=== PATIENT | female | born 1945 | race Caucasian/White ===

== ENCOUNTER 2021-04-02 09:30 | Outpatient (REF) | payer MEDICARE, SELFPAY ==
[2021-04-02 11:43] LABS: Hematocrit 47.9 % (37-47); Hemoglobin 15.3 g/dl (12.0-16.0); Mean Corpuscular HGB Conc 31.9 g/dl (31.0-35.0); Mean Corpuscular Volume 90.7 fL (80-98); Mean Platelet Volume 10.3 fL (9.4-12.3); Platelet Count 270 X10*3/uL (160-400); Red Blood Count 5.28 X10*6/uL (4.20-5.50); Red Cell Distribution Width 13.8 % (11.0-16.0); White Blood Count 8.9 X10*3/uL (4.8-10.8)
[2021-04-02 11:51] LABS: Alanine Aminotransferase 11 U/L (0-31); Albumin Level 4.1 g/dL (3.5-5.0); Alkaline Phosphatase 130 U/L (39-117); Anion Gap 16 (12-20); Aspartate Amino Transferase 16 U/L (5-31); Bilirubin Total 0.6 mg/dL (0.0-1.0); Blood Urea Nitrogen 20 mg/dL (9-16); Carbon Dioxide 22 mmol/L (22-29); Chloride 109 mmol/L (96-108); Cholesterol 190 mg/dL; Estimated Glomerular Filt Rate > 60; Glucose Fasting 77 mg/dL (60-99); HDL Cholesterol 57 mg/dL; LDL Cholesterol Calculated 113 mg/dl; Potassium 4.5 mmol/L (3.3-5.1); Sodium 142 mmol/L (135-145); Total Protein 6.9 g/dL (6.5-8.0); Triglycerides 102 mg/dL
[2021-04-02 12:15] LABS: TSH reflex Free T4 2.99 uIU/mL (0.32-4.0); Vitamin D 25-OH Total 37.5 ng/mL (>30)
== END 2021-04-02 09:31 | disposition home or self-care (01) ==
LOC: HO.HMGCLDS 09:30
PROVIDERS: PCP Internal Medicine; Visit Provider Internal Medicine
DX: E55.9 Vitamin D deficiency, unspecified (principal); F03.90 Unspecified dementia, unspecified severity, without behavioral disturbance, psychotic disturbance, mood disturbance, and anxiety; E03.9 Hypothyroidism, unspecified; R35.0 Frequency of micturition
CPT/HCPCS: 36415; 80053; 80061; 82306; 84443; 85027

== ENCOUNTER 2022-11-14 08:38 | Outpatient (REF) | payer MEDICARE, SELFPAY ==
[2022-11-14 11:36] LABS: MANUAL DIFF FLAG NO
[2022-11-14 11:44] LABS: Basophils Percent Auto 0.4 % (0-2); Eosinophils Absolute Auto 0.1 X10*3/uL (0.0-0.4); Hematocrit 47.6 % (37.0-47.0); Hemoglobin 15.4 g/dl (12.0-16.0); Imm Gran Abs Auto 0.03 X10*3/uL (0.00-0.03); Imm Gran Pct Auto 0.4 % (0.0-0.4); Lymphocytes Percent Auto 12.3 % (20-40); Mean Corpuscular HGB Conc 32.4 g/dl (31.0-35.0); Mean Corpuscular Hemoglobin 29.7 pg (27.0-33.0); Mean Corpuscular Volume 91.9 fL (80.0-98.0); Mean Platelet Volume 10.5 fL (9.4-12.3); Monocytes Absolute Auto 0.5 X10*3/uL (0.1-1.2); Monocytes Percent Auto 5.7 % (2-11); Neutrophils Absolute Auto 6.7 x10*3/uL (2.0-8.3); Neutrophils Percent Auto 80.2 % (45-73); Platelet Count 239 X10*3/uL (160-400); Red Blood Count 5.18 X10*6/uL (4.20-5.50); Red Cell Distribution Width 13.3 % (11.0-16.0); White Blood Count 8.4 X10*3/uL (4.8-10.8)
[2022-11-14 12:27] LABS: Alanine Aminotransferase 13 U/L (0-31); Albumin Level 3.8 g/dL (3.5-5.0); Alkaline Phosphatase 136 U/L (39-117); Anion Gap 14 (12-20); Aspartate Amino Transferase 18 U/L (5-31); Bilirubin Total 0.6 mg/dL (0.0-1.0); Blood Urea Nitrogen 16 mg/dL (9-16); Calcium 9.1 mg/dL (8.4-10.2); Carbon Dioxide 25 mmol/L (22-29); Chloride 108 mmol/L (96-108); Cholesterol 194 mg/dL; Estimated Glomerular Filt Rate > 60; Glucose Fasting 81 mg/dL (60-99); HDL Cholesterol 46 mg/dL; LDL Cholesterol Calculated 111 mg/dl; Potassium 4.2 mmol/L (3.3-5.1); Sodium 143 mmol/L (135-145); TSH reflex Free T4 5.38 uIU/mL (0.32-4.0); Total Protein 6.5 g/dL (6.5-8.0); Triglycerides 188 mg/dL; Vitamin D 25-OH Total 37.2 ng/mL (>30)
[2022-11-14 12:57] LABS: Free T4 (Free Thyroxine) 1.07 ng/dL (0.71-1.85)
== END 2022-11-14 08:39 | disposition home or self-care (01) ==
LOC: HO.HMGCLDS 08:38
PROVIDERS: PCP Internal Medicine; Visit Provider Internal Medicine
DX: Z00.00 Encounter for general adult medical examination without abnormal findings (principal); E03.9 Hypothyroidism, unspecified; F03.90 Unspecified dementia, unspecified severity, without behavioral disturbance, psychotic disturbance, mood disturbance, and anxiety; E55.9 Vitamin D deficiency, unspecified
CPT/HCPCS: 36415; 80053; 80061; 82306; 84439; 84443; 85025

== ENCOUNTER 2023-11-15 10:12 | Outpatient (AMB) | payer MEDICARE, SELFPAY ==
--- NOTE | 2023-11-15 10:25 | A.OFFPC_ITS ---
Vital Signs 11/15/23 10:26 Height 5 ft 2 in Weight 146 lb BMI 26.7 BP 118/74 Blood Pressure Location Lt brachial Position Sitting Pulse 88 Pulse Source Pulse Oximeter Pulse Oximetry (%) 96 Oxygen Delivery Method Room Air Intake Visit Reasons: Annual PE Intake Note: Pt is ere today for PE. Allergies No Known Allergies Allergy (Verified 11/15/23 10:51) Medication List - Last Reconciled 11/15/23 by Mitali Blanton MD cholecalciferol (vitamin D3) 25 mcg PO DAILY diaper,brief,adult,disposable (Briefs Medium) As directed disposable gloves (Biobrane Gloves Large) As directed [disposable wipes As directed] donepezil 5 mg PO BEDTIME gabapentin 400 mg PO DAILY levothyroxine 25 mcg PO DAILY paroxetine HCl 30 mg PO DAILY pravastatin 20 mg PO DAILY Tobacco use date assessed: 11/15/23 Fall risk assessment: 1 Fall in past year Last assessed Fall Risk: 11/15/23 Dental Screening Dental Screen Date: 11/15/23 Did you have a dental visit in the last 12 months?: No Did you have a dental problem in the last 6 months where you did not have access to dental care?: No Was dental information given to patient?: Patient declined HPI Annual PE HPI Details PATIENT PRESENTS FOR PE. [facility] Medical History (Updated 11/15/23 @ 11:22 by Mitali Blanton MD) Hyperlipidemia Anxiety and depression Annual physical exam Vitamin D deficiency Dementia Hypothyroid Surgical History No pertinent past surgical history Family History Father No problems noted. Mother Mental health disorder Social History Housing: Other Patient Tobacco Use Status: Never used Tobacco e-Cigarette/Vaping Use: Never Used Second Hand Smoke Exposure: No service: No Current occupational status: other Current occupational exposures/hazards: No Cognitive needs: No Hearing needs: No Vision needs: No Questionnaire PHQ-9 Over the last 2 weeks, how often have you been bothered by any of the following problems? 1. Little interest or pleasure in doing things: not at all 2. Feeling down, depressed, or hopeless: several days 3. Trouble falling or staying asleep, or sleeping too much: several days 4. Feeling tired or having little energy: not at all 5. Poor appetite or overeating: not at all 6. Feeling bad about yourself - or that you are a failure or have let yourself or your family down: not at all 7. Trouble concentrating on things, such as reading the newspaper or watching television: not at all 8. Moving or speaking so slowly that other people could have noticed. Or the opposite - being so fidgety or restless that you have been moving around a lot more than usual: not at all 9. Thoughts that you would be better off or of hurting yourself in some way: not at all Total score: 2 Depression Screening Interpretation: Negative Depression Screening Done: Yes Source: Developed by Drs. Reza Chin, Nabila Malin, Skinny Vásquez and colleagues, with an educational severiano from [employer]. Thrive Questionnaire Date Thrive assessed: 11/15/23 I am a: Patient What is your living situation today?: I have a steady place to live Within the past 12 months, did the food you bought not last and you didn't have the money to get more?: Never true Within the past 12 months, did you worry whether your food would run out before you got money to buy more?: Never true Do you have trouble paying for medicines?: No Do you have trouble getting transportation to medical appointments?: No Do you have trouble paying your heating and electricity bill?: No Do you have trouble taking care of your child, family member or friend?: Yes Do you have trouble with day-to-day activities such as bathing, preparing meals, shopping, managing finances, etc.?: Yes Are you currently unemployed and looking for a job?: No Are you interested in more education?: No Please select the resources that you would like help with: Childcare and Daily support Currently or been in a relationship where the following occur: no concerns reported THRIVE Score: 0 AUDIT C Alcohol Use Questionnaire (AUDIT-C) 1. How often do you have a drink containing alcohol?: Never 3. How often do you have six or more drinks on one occasion?: Never Total Score: 0 CINDY-7 AMB Questionnaire CINDY-7 Date CINDY - 7 assessed: 11/15/23 Feeling nervous, anxious, or on edge: 0 = Not at all Not being able to stop or control worryin = Not at all Worrying too much about different things: 0 = Not at all Trouble relaxin = Several days Being so restless that it is hard to sit still: 1 = Several days Becoming easily annoyed or irritable: 1 = Several days Feeling afraid as if something awful might happen: 0 = Not at all Total CINDY-7 score (0-4 normal; 5-9 mild; 10-14 moderate; 15-21 severe): 3 Source: Developed by Drs. Reza Chin, Nabila Malin, Skinny Vásquez and colleagues, with an educational severiano from [employer]. Review of Systems Const All systems reviewed & are unremarkable except as noted in HPI and below Reports no additional complaints Eyes Reports no additional complaints ENT Reports no additional complaints Card Reports no additional complaints Resp Reports no additional complaints GI Reports no additional complaints Reports no additional complaints Physical exam (Primary Care) Vital Signs: Last Vital Signs Pulse 88 11/15/23 10:26 BP 118/74 11/15/23 10:26 Pulse Ox 96 11/15/23 10:26 Oxygen Delivery Method Room Air 11/15/23 10:26 BMI result Body Mass Index 26.7 Tobacco/Smoking Status: Tobacco use Status Tobacco use date assessed 11/15/23 11/15/23 10:55 Patient Tobacco Use Status Never used Tobacco 11/15/23 10:55 e-Cigarette/Vaping Use Never Used 11/15/23 10:27 PHQ-9: PHQ-9 Score PHQ-9: Total score 2 11/15/23 10:57 Depression Screening Interpretation: Negative Thrive Assessment: Date of Thrive Assessment Date Thrive assessed 11/15/23 11/15/23 10:57 Currently or been in a relationship where the following occur: no concerns reported Const General: no acute distress HENMT Head: Yes normal to inspection General nose exam: Normal external nose present Face and sinus: Yes normal facial exam Mouth: Normal oral and palatal mucosa present Throat: Yes posterior oropharynx normal Eyes General: appearance normal, both eyes and all related structures Neck Neck: Yes no lymphadenopathy and Yes supple Resp Effort & Inspection: normal respiratory effort Auscultation: clear to auscultation bilaterally Cardio Rhythm: regular rhythm Heart sounds: S1 normal heart sound present and S2 normal heart sound present GI Inspection: Yes normal to inspection Palpation (GI): Soft to palpation Percussion: Yes normal to percussion Auscultation: normal bowel sounds Assessment and Plan Assessment & Plan (1) Hypothyroid: Code(s): E03.9 - Hypothyroidism, unspecified Plan: Continue levothyroxine, return for fasting blood work (2) Annual physical exam: Code(s): Z00.00 - Encounter for general adult medical examination without abnormal findings Plan: Well-balanced diet regular physical activity discussed with the patient DEXA will be checked (3) Dementia: Code(s): F03.90 - Unspecified dementia, unspecified severity, without behavioral disturbance, psychotic disturbance, mood disturbance, and anxiety Plan: Continue donepezil (4) Anxiety and depression: Code(s): F41.9 - Anxiety disorder, unspecified; F32.9 - Major depressive disorder, single episode, unspecified Plan: Continue paroxetine (5) Hyperlipidemia: Code(s): E78.5 - Hyperlipidemia, unspecified Plan: Continue pravastatin, return in 1 year Orders: Orders Complete Blood Count Auto Diff Today E03.9 - Hypothyroidism, unspecified, E55.9 - Vitamin D deficiency, unspecified, F03.90 - Unspecified dementia, unspecified severity, without behavioral disturbance, psychotic disturbance, mood disturbance, and anxiety, Z00.00 - Encounter for general adult medical examination without abnormal findings Lipid Panel Today E03.9 - Hypothyroidism, unspecified, E55.9 - Vitamin D deficiency, unspecified, F03.90 - Unspecified dementia, unspecified severity, without behavioral disturbance, psychotic disturbance, mood disturbance, and anxiety, Z00.00 - Encounter for general adult medical examination without abnormal findings Vitamin D 25-OH Total Today E03.9 - Hypothyroidism, unspecified, E55.9 - Vitamin D deficiency, unspecified, F03.90 - Unspecified dementia, unspecified severity, without behavioral disturbance, psychotic disturbance, mood disturbance, and anxiety, Z00.00 - Encounter for general adult medical examination without abnormal findings Comprehensive [place]. Panel Fast Today E03.9 - Hypothyroidism, unspecified, E55.9 - Vitamin D deficiency, unspecified, F03.90 - Unspecified dementia, unspecified severity, without behavioral disturbance, psychotic disturbance, mood disturbance, and anxiety, Z00.00 - Encounter for general adult medical examination without abnormal findings TSH reflex Free T4 Today E03.9 - Hypothyroidism, unspecified, E55.9 - Vitamin D deficiency, unspecified, F03.90 - Unspecified dementia, unspecified severity, without behavioral disturbance, psychotic disturbance, mood disturbance, and anxiety, Z00.00 - Encounter for general adult medical examination without abnormal findings XR DEXA axial skeleton Today E03.9 - Hypothyroidism, unspecified, E55.9 - Vitamin D deficiency, unspecified, F03.90 - Unspecified dementia, unspecified severity, without behavioral disturbance, psychotic disturbance, mood disturbance, and anxiety, Z00.00 - Encounter for general adult medical examination without abnormal findings, Z78.0 - Asymptomatic menopausal state Coding Level of Care Code Est Pt Prev Care >65y(95864) Diagnoses Hypothyroid E03.9 Annual physical exam Z00.00 Dementia F03.90 Anxiety and depression F41.9; F32.9 Hyperlipidemia E78.5
[2023-11-15 10:26] VITALS: BP 118/74; PULSE 88; O2SAT 96; BMI 26.7
== END 2023-11-15 11:23 | disposition home or self-care (01) ==
PROVIDERS: PCP Internal Medicine; Visit Provider Internal Medicine
DX: Z00.00 Encounter for general adult medical examination without abnormal findings (principal); E03.9 Hypothyroidism, unspecified; F03.90 Unspecified dementia, unspecified severity, without behavioral disturbance, psychotic disturbance, mood disturbance, and anxiety; E78.5 Hyperlipidemia, unspecified
CPT/HCPCS: 99397

== ENCOUNTER 2023-11-18 08:09 | Outpatient (REF) | payer MEDICARE, SELFPAY ==
[2023-11-18 11:24] LABS: MANUAL DIFF FLAG NO
[2023-11-18 11:33] LABS: Basophils Percent Auto 0.5 % (0-2); Eosinophils Absolute Auto 0.1 X10*3/uL (0.0-0.4); Eosinophils Percent Auto 1.7 % (0-4); Hematocrit 45.1 % (37.0-47.0); Hemoglobin 14.5 g/dl (12.0-16.0); Imm Gran Abs Auto 0.01 X10*3/uL (0.00-0.03); Imm Gran Pct Auto 0.2 % (0.0-0.4); Lymphocytes Absolute Auto 1.3 X10*3/uL (1.2-4.9); Lymphocytes Percent Auto 21.3 % (20-40); Mean Corpuscular HGB Conc 32.2 g/dl (31.0-35.0); Mean Corpuscular Hemoglobin 30.3 pg (27.0-33.0); Mean Corpuscular Volume 94.4 fL (80.0-98.0); Mean Platelet Volume 10.3 fL (9.4-12.3); Monocytes Absolute Auto 0.5 X10*3/uL (0.1-1.2); Monocytes Percent Auto 7.3 % (2-11); Neutrophils Absolute Auto 4.4 x10*3/uL (2.0-8.3); Platelet Count 267 X10*3/uL (160-400); Red Blood Count 4.78 X10*6/uL (4.20-5.50); Red Cell Distribution Width 14.2 % (11.0-16.0); White Blood Count 6.3 X10*3/uL (4.8-10.8)
[2023-11-18 12:15] LABS: Alanine Aminotransferase 10 U/L (0-31); Albumin Level 3.8 g/dL (3.5-5.0); Alkaline Phosphatase 125 U/L (39-117); Anion Gap 13 (12-20); Aspartate Amino Transferase 17 U/L (5-31); Bilirubin Total 0.4 mg/dL (0.0-1.0); Blood Urea Nitrogen 20 mg/dL (9-16); Calcium 9.2 mg/dL (8.4-10.2); Carbon Dioxide 26 mmol/L (22-29); Chloride 107 mmol/L (96-108); Cholesterol 228 mg/dL (<200); Estimated Glomerular Filt Rate > 60; Glucose Fasting 77 mg/dL (60-99); HDL Cholesterol 54 mg/dL (>40); LDL Cholesterol Calculated 153 mg/dL (<100); Potassium 4.3 mmol/L (3.3-5.1); Sodium 142 mmol/L (135-145); Total Protein 6.8 g/dL (6.5-8.0); Triglycerides 109 mg/dL (<150)
[2023-11-18 12:17] LABS: TSH reflex Free T4 3.95 uIU/mL (0.32-4.0); Vitamin D 25-OH Total 52.9 ng/mL (>30)
== END 2023-11-18 08:10 | disposition home or self-care (01) ==
LOC: HO.HMGCLDS 08:09
PROVIDERS: PCP Internal Medicine; Visit Provider Internal Medicine
DX: Z00.00 Encounter for general adult medical examination without abnormal findings (principal); F03.90 Unspecified dementia, unspecified severity, without behavioral disturbance, psychotic disturbance, mood disturbance, and anxiety; E03.9 Hypothyroidism, unspecified; E55.9 Vitamin D deficiency, unspecified
CPT/HCPCS: 36415; 80053; 80061; 82306; 84443; 85025

== ENCOUNTER 2023-12-01 08:30 | Outpatient (REF) | payer MEDICARE, SELFPAY ==
--- NOTE | ~2023-12-01 | MM_ITS ---
EXAMINATION: BONE DENSITOMETRY CLINICAL INDICATION: Menopause. COMPARISON: This is the patient's baseline examination. TECHNIQUE: Using a [employer] DXA System (software version: 13.1) manufactured by [employer], dual-energy x-ray absorptiometry was performed of the lumbar spine and left hip. The images are of good technical quality. Summary results are attached. FINDINGS: LEFT FEMUR, NECK: BMD 0.744 g/cm2, Z-score 0.0, T-score -2.1, osteopenia. LEFT FEMUR, TOTAL: BMD 0.692 g/cm2, Z-score -0.5, T-score -2.5, osteoporosis. AP SPINE L1-L4 (excluding L2): The data of L1-L4 has been changed to exclude the L2 vertebral body, because degenerative sclerosis at this level may cause overestimation of lumbar spine density. BMD 1.282 g/cm2, Z-score 2.7, T-score 0.9, normal. IDENTIFIED RISK FACTORS: Menopause. HISTORY OF FRACTURE: None listed. MEDICATIONS: Vitamin D. MM/XR DEXA axial skeleton IMPRESSION: 1. DIAGNOSIS: Osteoporosis based on the lowest T-score value of -2.5 in the total femur applying World Health Organization criteria. 2. 10-YEAR FRACTURE RISK PREDICTION, FRAX: According to the guidelines, FRAX calculation should only be performed on patients in the osteopenia bone density category. Therefore, FRAX was not performed on this patient. 3. Treatment Recommendations: NOF guidelines recommend consideration for treatment in postmenopausal women and men age 50 and older presenting with the following: -A hip or vertebral (clinical or morphometric) fracture. -T-score less than or equal to -2.5 at the femoral neck or spine after appropriate evaluation to exclude secondary causes. -Low bone mass at the hip or spine and a 10-year fracture probability by FRAX of greater than or equal to 3% for hip fracture or greater than or equal to 20% for major osteoporotic fracture based on the [place] adapted WHO algorithm. 4. Other Recommendations: All treatment decisions require clinical judgment and consideration of individual patient factors, including patient preferences, comorbidities, previous drug use, risk factors not captured in the FRAX model (e.g. frailty, falls, vitamin D deficiency, increased bone turnover, interval significant decline in bone density) and possible under or overestimation of fracture risk by FRAX. Additional medical evaluation for secondary cause of low bone mineral density may be appropriate. FUTURE SCAN RECOMMENDATION: People with diagnosed cases of osteoporosis or at high risk for fracture should have regular bone mineral density tests. For patients eligible for Medicare, routine testing is allowed once every 2 years. The testing frequency can be increased to one year for patients who have rapidly progressing disease, those who are receiving or discontinuing medical therapy to restore bone mass, or have additional risk factors.
== END 2023-12-01 08:31 | disposition home or self-care (01) ==
LOC: HO.MAMMO 08:30
PROVIDERS: PCP Internal Medicine; Visit Provider Internal Medicine
DX: Z13.820 Encounter for screening for osteoporosis (principal); Z78.0 Asymptomatic menopausal state
CPT/HCPCS: 77080

== ENCOUNTER 2024-04-25 13:49 | Outpatient (AMB) | payer MEDICARE, SELFPAY ==
--- OUTSIDE RECORDS SUMMARY | 2024-04-25 13:50 | XMS_ITS | Continuity of Care Document ---
Author Organization [facility] Address [address] [place] [address]- Care Team Providers Care Business Affairs Manager Name Role Phone Franny LUTZ, Mitali Primary Care Physician [phone] Encounter [facility] Date(s): 03/10/24 - 03/12/[address] [address]- Discharge Disposition: A-D/C Home Attending Physician: Kris LUTZ, Radha Faith Admitting Physician: Landy LUTZ, Malinda Referring Physician: Kirt LUTZ, Nik Faith Allergies, Adverse Reactions, Alerts No Known Allergies Medications alendronate 70 mg oral tablet 1 tablet = 70 mg, By Mouth, Every week, # 4 tablet, 0 Refills, Maintenance, 03/10/24 19:26:00 EDT, Tablet, Partial fill upon patient request if the prescription is for a schedule II opioid drug. Start Date: 03/10/24 Status: Ordered cephalexin monohydrate 500 mg oral capsule 1 capsule = 500 mg, By Mouth, 3 times a day, for 7 days, # 21 capsule, 0 Refills, Acute 03/16/24 9:36:00 EDT, 03/09/24 9:36:00 EDT, Capsule, [id number], Partial fill upon patient request if the prescription is for a schedule II opioid... Start Date: 03/09/24 Stop Date: 03/16/24 Status: Ordered donepezil 5 mg oral tablet 5 mg, 1, tablet, By Mouth, Daily at bedtime, Refills 0, Maintenance, 03/09/24 7:59:00 EDT, Partial fill upon patient request if the prescription is for a schedule II opioid drug. Start Date: 03/09/24 Status: Ordered Gabapentin = 400 mg, By Mouth, Daily at bedtime, 0 Refills, Maintenance, 08/20/22 9:06:00 EST, Partial fill upon patient request if the prescription is for a schedule II opioid drug. Start Date: 08/20/22 Status: Ordered gabapentin 400 mg oral capsule 400 mg, Capsule, By Mouth, 03/11/24 21:00:00 EDT Start Date: 03/11/24 Stop Date: 03/11/24 Status: Completed levothyroxine 25 mcg (0.025 mg) oral capsule 1 capsule = 25 mcg, By Mouth, Daily, # 30 capsule, 0 Refills, Maintenance, 03/10/24 19:27:00 EDT, Capsule, Partial fill upon patient request if the prescription is for a schedule II opioid drug. Start Date: 03/10/24 Status: Ordered Paroxetine = 30 mg, By Mouth, Daily, 0 Refills, Maintenance, 08/20/22 9:11:00 EST, Partial fill upon patient request if the prescription is for a schedule II opioid drug. Start Date: 08/20/22 Status: Ordered Pravastatin = 20 mg, By Mouth, Daily, 0 Refills, Maintenance, 08/20/22 9:06:00 EST, Partial fill upon patient request if the prescription is for a schedule II opioid drug. Start Date: 08/20/22 Status: Ordered QUEtiapine 25 mg oral tablet 25 mg, 1, tablet, By Mouth, Daily, PRN, # 30 tablet, Refills 0, Tot. Refills 0, Maintenance, Agitation, 03/12/24 15:27:00 EDT, Route to Pharmacy Electronically, [facility] #[id number], Partial fill upon patient request if the prescription is for... Start Date: 03/12/24 Stop Date: 04/11/24 Status: Ordered Vitamin D3 50 mcg (2000 intl units) oral tablet, chewable 0.5 tablet = 25 mcg, By Mouth, Daily, # 30 each, 0 Refills, Maintenance, 03/10/24 19:30:00 EDT, Chew Tablet, Partial fill upon patient request if the prescription is for a schedule II opioid drug. Start Date: 03/10/24 Status: Ordered Problem List Condition Confirmation Course Effective Dates Status H ealth Status Informant COVID-19 1 Confirmed 08/20/22 Active Dementia Confirmed Active HLD (hyperlipidemia) Confirmed Active Hypothyroidism Confirmed Active Osteoporosis Confirmed Active Schizotypal disorder Confirmed Active 1Problem added by Discern Expert Vital Signs Most recent to oldest [Reference Range]: 1 2 3 Height 158 cm (03/12/24 5:25 AM) 158 cm (03/11/24 3:55 PM) 158 cm (03/11/24 8:18 AM) Weight 66.3 kg (03/10/24 8:07 PM) 66.3 kg (03/10/24 8:00 PM) 65.7 kg (03/10/24 5:37 PM) Oxygen Saturation [94-100 %] 95 % (03/12/24 4:00 PM) 93 % *L* (03/12/24 5:25 AM) 97 % (03/11/24 8:00 PM) Pulse Rate [55-90 bpm] 70 bpm (03/12/24 4:00 PM) 69 bpm (03/12/24 5:25 AM) 68 bpm (03/11/24 8:00 PM) Body Mass Index [18.5-24.99 kg/m2] 26.56 kg/m2 *H* (03/10/24 8:07 PM) 26.32 kg/m2 *H* (03/10/24 5:37 PM) Blood Pressure [90-138/55-84 mm Hg] 100/80mm Hg (03/12/24 4:00 PM) 103/81mm Hg (03/12/24 5:25 AM) 147/90mm Hg *H* (03/11/24 8:00 PM) Respiratory Rate [16-30 br/min] 17 br/min (03/12/24 4:00 PM) 16 br/min (03/12/24 5:25 AM) 18 br/min (03/11/24 8:33 PM) Temperature [96.8-100.4 DegF] 98 DegF (03/12/24 4:00 PM) 97.9 DegF (03/12/24:25 AM) 97.3 DegF (03/11/24 8:00 PM) Mode of Delivery (Oxygen) Room air (03/12/24 4:00 PM) Room air (03/12/24 5:25 AM) Room air (03/11/24 8:00 PM) Blood pressure sites Arm, right (03/12/24 4:00 PM) Arm, right (03/12/24 5:25 AM) Arm, right (03/11/24 8:00 PM) Temperature Route Oral (03/12/24 4:00 PM) Oral (03/12/24 5:25 AM) Oral (03/11/24 8:00 PM) Dry Weight 66.3 kg (03/10/24 8:07 PM) 65.7 kg (03/10/24 5:37 PM) 65.7 kg (03/10/24 3:15 PM) Weight Obtained Via Standing scale (03/10/24 8:00 PM) Dry Weight Obtained Via Standing scale (03/10/24 8:07 PM) Standing scale (03/10/24 3:15 PM) Social History Social History Type Response Smoking Status Never (less than 100 in lifetime) entered on: 08/20/22 Sex History and physical note * Tianna Cordoba: PERFORM Event Display: History and Physical Hospital Authored Date: Patient: ??LIZETH ROLLINS ? Age:??79 Years?Sex:??Female?:??1945?? 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 She lives with her long time friend Bri who also functions as a caregiver. She has some mild forgetfulness and brief moments of disorientation at baseline. Two days ago, she began acting more confused. She was intermittently agitated. She was paranoid that the police were coming after her and hallucinating that people were in the room whowere not there. The caregiver noticed some urinary frequency/more frequent trips to the bathroom but no overt dysuria, fevers or other infectious symptoms. She was seen in the ER yesterday and diagnosed with a UTI and started on keflex. She is brought back today because the above have worsened and she was up all night, did not sleep and was found wandering the street covered up with a blanket around 3 AM. ?? In the ER she is mildly tachycardic. Has a normal white count. Mild hypernatremia from yesterdayhas resolved. CT head from yesterday was non acute. She was given ceftriaxone and IV fluids.?? Review of Systems Full ROS completed and is negative or as otherwise mentioned in the HPI. Objective Measurements?? Height: 158 cm (03/10/24) Weight: 65.7 kg (03/10/24) Dry Weight: 65.7 kg (03/10/24) Body Mass Index:??26.32 kg/m2??High (03/10/24) ? Vital Signs?? Temperature: 98 DegF (03/10/24 15:15:00) Pulse Rate: 81 bpm (03/10/24 17:37:00) Respiratory Rate: 18 br/min (03/10/24 17:37:00) Systolic Blood Pressure:??172 mm Hg??High (03/10/24 17:37:00) Diastolic Blood Pressure:??91 mm Hg??High (03/10/24 17:37:00) Blood pressure sites: Arm, left (03/10/24 17:37:00) Mean Arterial Pressure: 118 mm Hg (03/10/24 17:37:00) Pulse Pressure: 81 mm Hg (03/10/24 17:37:00) Oxygen Saturation: 95 % (03/10/24 17:37:00) Mode of Delivery (Oxygen): Room air (03/10/24 17:37:00) Early Warning Score: 2 (03/10/24 19:56:07) ? Physical Exam ?General NAD, on room air?HEENT??Moist mucous membranes ?Lung??CTA bilaterally, no wheezes, rhonchi, or rales?Heart??regular rate and rhythm, no murmurs, gallops, or rubs?Abdomen soft, non-tender, non-distended, bowel sounds present, no suprapubic discomfort?Extremities?? no clubbing, no cyanosis,??no pedal edema, peripheral pulses intact. 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 ?? Urinary tract infection (N39.0):?? Metabolic encephalopathy (G93.41):?? Presents with worsening confusion from baseline, intermittent agitation, paranoia and hallucinations, wandering behavior overnight last night. Had medical workup yesterday including CT head (neg, andno focal deficits) stable labs, abnormal appearing urine which was favored to represent UTI given the acute change in behavior two days ago, but unclear if symptomatic. She has both underlying psych history and dementia that may be contributing - continue ceftriaxone - urine culture from 03/09 pending - delirium measures - consider psych consult/crisis eval if??symptoms persist despite abx - follow up TSH, B12 ?? Dementia (F03.90):??continue donepezil ?? HLD (hyperlipidemia) (E78.5):??continue statin ?? Schizotypal disorder (F21):??diagnosis not specified continue home meds which include gabapentin??and paroxetine ?? Hypothyroidism (E03.9):??continue levothyroxine ?? VTE Prophylaxis:??lovenox ?VTE Prophylaxis Assessment:??VTE Prophylaxis Ordered Discharge Planning:??pending improvement Ongoing Medical Necessity:??ams Code Status:??full?? hcp is??long time friend/caregiver Bri [phone] ?Order Code Status:??Code Status Ordered Histories Allergies Allergies ?(Active and Proposed Allergies Only) NKA? (Severity: Unknown severity, Onset: Unknown) ? Past Medical History/Problem List Active Problems(6) COVID-19 Dementia HLD (hyperlipidemia) Hypothyroidism Osteoporosis Schizotypal disorder ? Past Surgical History No past surgeries ? Social History Alcohol Details:??Use: Current. ??Frequency: 1-2 times per week. Substance Abuse Details:??Use: Never. Tobacco Details:??Use: Never (less than 100 in lifetime). ? Family History unable to obtain ? Medications Home Medications Alendronate (alendronate 70 mg oral tablet)?1?tab(s)?70?Milligram?By Mouth?Every week Cephalexin (cephalexin monohydrate 500 mg oral capsule)?1?capsule?500?Milligram?By Mouth?3 times a day?for 7?Days Cholecalciferol (Vitamin D3 50 mcg (2000 intl units) oral tablet, chewable)?0.5?tab(s)?25?Microgram?By Mouth?Daily Donepezil (donepezil 5 mg oral tablet)?5?Milligram?1?tablet?By Mouth?Daily at bedtime Gabapentin?400?Milligram?By Mouth?Daily at bedtime Levothyroxine (levothyroxine 25 mcg (0.025 mg) oral capsule)?1?capsule?25?Microgram?By Mouth?Daily Paroxetine?30?Milligram?By Mouth?Daily Pravastatin?20?Milligram?By Mouth?Daily ? Results Recent Labs BACTERIOLOGY Urine Culture Results Preliminary report (Abnormal)?? 03/09/2024 08:07 ?? BLOOD COUNT & DIFF WBC 6.6 k/mm3 ()?? 03/09/2024 08:24 RBC 5.03 m/mm3 ()?? 03/09/2024 08:24 Hgb 14.7 Gm/dL ()?? 03/09/2024 08:24 Hct 44.8 % ()?? 03/09/2024 08:24 MCV 89.1 femtoliters ()?? 03/09/2024 08:24 MCH 29.2 pg ()?? 03/09/2024 08:24 MCHC 32.8 g/dL (Low)?? 03/09/2024 08:24 Platelet Count 237 k/mm3 ()?? 03/09/2024 08:24 RDW-SD 46.9 femtoliters ()?? 03/09/2024 08:24 MPV 9.7 femtoliters ()?? 03/09/2024 08:24 Nucleated RBC (Automated) 0.0 #/100 WBC'S ()?? 03/09/2024 08:24 Abs. NRBC 0.0 k/mm3 ()?? 03/09/2024 08:24 Abs. Neut 5.0 k/mm3 ()?? 03/09/2024 08:24 Abs. Lymph 0.9 k/mm3 ()?? 03/09/2024 08:24 Abs. Stanton 0.5 k/mm3 ()?? 03/09/2024 08:24 Abs. Eo 0.1 k/mm3 ()?? 03/09/2024 08:24 Abs. Baso 0.0 k/mm3 ()?? 03/09/2024 08:24 Neut % 76.4 % (High)?? 03/09/2024 08:24 Lymph % 14.0 % (Low)?? 03/09/2024 08:24 Stanton % 7.9 % ()?? 03/09/2024 08:24 Eos % 0.8 % ()?? 03/09/2024 08:24 Baso % 0.3 % ()?? 03/09/2024 08:24 Imm Gran 0.6 % ()?? 03/09/2024 08:24 Abs. Imm Gran 0.0 k/mm3 ()?? 03/09/2024 08:24 ?? CHEM GENERAL Sodium 141 mmol/L ()?? 03/10/2024 17:21 Potassium 3.8 mmol/L ()?? 03/10/2024 17:21 Chloride 107 mmol/L ()?? 03/10/2024 17:21 Bicarbonate Level 22 mmol/L ()?? 03/10/2024 17:21 Anion Gap 12 ()?? 03/10/2024 17:21 Glucose Level 131 mg/dL (High)?? 03/10/2024 17:21 BUN 14 mg/dL ()?? 03/10/2024 17:21 Creatinine-Blood 0.74 mg/dL ()?? 03/10/2024 17:21 Estimated GFR Creatinine 81 ML/MIN/1.73 M2 ()?? 03/10/2024 17:21 Calcium 9.1 mg/dL ()?? 03/10/2024 17:21 Protein, Total 6.3 Gm/dL ()?? 03/10/2024 17:21 Albumin 3.3 Gm/dL (Low)?? 03/10/2024 17:21 AG Ratio 1.1 ()?? 03/10/2024 17:21 Alkaline Phosphatase 140 units/L (High)?? 03/10/2024 17:21 AST (SGOT) 23 units/L ()?? 03/10/2024 17:21 ALT (SGPT) 52 units/L (High)?? 03/10/2024 17:21 Bilirubin, Total 0.3 mg/dL ()?? 03/10/2024 17:21 ?? ENDOCRINE/TUMOR MARKER TSH 2.92 uIU/mL ()?? 03/09/2024 08:24 ?? HEME OTHER Hold Lavender Top SPECIMEN DISCARDED AFTER 24 HOURS. ()?? 03/10/2024 16:29 Hold Blue Top SPECIMEN DISCARDED AFTER 4 HOURS. ()?? 03/10/2024 17:21 ?? UA/URINALYSIS Appear/Color, Urine YELLOW ()?? 03/10/2024 16:14 Clarity CLEAR ()?? 03/10/2024 16:14 Specific [place], Urine 1.025 ()?? 03/10/2024 16:14 pH, Urine 5.5 ()?? 03/10/2024 16:14 Albumin, Urine NEGATIVE ()?? 03/10/2024 16:14 Glucose, Urine NEGATIVE ()?? 03/10/2024 16:14 Ketones, Urine NEGATIVE ()?? 03/10/2024 16:14 Bilirubin, Urine NEGATIVE ()?? 03/10/2024 16:14 Hemoglobin, Urine TRACE (Abnormal)?? 03/10/2024 16:14 Nitrite, Urine NEGATIVE ()?? 03/10/2024 16:14 Leukocyte, Urine 1+ (Abnormal)?? 03/10/2024 16:14 Urobilinogen 2 mg/dL (Abnormal)?? 03/10/2024 16:14 WBC's, Urine 5 /HPF ()?? 03/10/2024 16:14 RBC's, Urine <1 /HPF ()?? 03/10/2024 16:14 Bacteria HEAVY HPF (Abnormal)?? 03/09/2024 08:07 Squamous Epith 4 /HPF ()?? 03/10/2024 16:14 Mucus SLIGHT /LPF ()?? 03/10/2024 16:14 Hold Urine Culture Testing available 48 hours from time of collection. ()?? 03/10/2024 16:14 ?? URINE OTHER Est Creatinine Clearance 47.60 mL/min ()?? 03/10/2024 18:00 Urine Culture Specimen Source URINE ()?? 03/09/2024 08:07 Urine Culture Isolate 1 Gram negative rods (Abnormal)?? 03/09/2024 08:07 ? Hospital Progress note * Colton Huitron DO: PERFORM Event Display: Progress [facility] Authored Date: Patient: ??LIZETH ROLLINS ? Age:??79 Years?Sex:??Female?:??1945?? The patient became acutely agitated,??screaming, unable to be redirected. She dislodged her IV. .She will be given Zyprexa IM as ordered Due to lack of IV access her antibiotics??will be switched to??cefpodoxime * Patricia Hood RN: PERFORM, SIGN, VERIFY Event Display: Progress Note Hospital Authored Date: [id number] Patient: LIZETH ROLLINS Age: 79 years Sex: Female : 1945 Associated Diagnoses: None Author: Patricia Hood RN Findings Problem Related to Alteration in Genitourinary : Alteration in Genitourinary Function/new 03/11/2024 23:00 EDT Alteration in Status Related to UTI Goals & Outcomes, Genitourinary Pt will achieve normal/improved fluid balance, Pt will maintainadequate function appropriate for pt Interventions, Assess/monitor/maintain Genitourinary status, Assist & encourage pt with meticulous naheed care, Encourage PO fluid intake as allowed by diet Goals/Interventions, Genitourinary Yes Genitourinary, Problem Start 03/10/2024 22:00 Reviewed Plan with, Genitourinary Patient Patient Progression, Genitourinary Patient progressing according to plan Genitourinary, Problem Ongoing Yes . Alteration in Safety : Alteration in Safety/new 03/11/2024 23:00 EDT Alteration in Safety Related to Other: fall risk Goals & Outcomes, Safety Pt will remain safe & injury free Interventions, Safety Provide teaching as needed Goals/Interventions, Safety Yes Safety, Problem Start 03/10/2024 22:00 Reviewed plan with, Safety Patient Patient Progression, Safety Pt progressing according to plan . Nursing Data Vital Signs : VITAL SIGNS SECTION 03/11/2024 20:33 EDT Respiratory Rate 18 br/min 03/11/2024 20:11 EDT Early Warning Score 2.00 03/11/2024 20:00 EDT Temperature 97.3 DegF Temperature Route Oral Pulse Rate 68 bpm Respiratory Rate 17 br/min Systolic Blood Pressure 147 mm Hg H Diastolic Blood Pressure 90 mm Hg H Blood pressure sites Arm, right Pulse Pressure 57 mm Hg Oxygen Saturation 97 % Mode of Delivery (Oxygen) Room air . Evaluation Pt. alert, oriented 1-2 , asking when she can go home repeatedly. Pt. took bedtime meds and fell asleep shortly after. Standby assist to bathroom to void. Plan for discharge home tomorrow morning after abx. Lungs clear on RA, NAD. Bed in low, locked position with tabs alarm on & call-lopez in reach. . Discharge Information Case Management Discharge Plan : Case Management Discharge Plan Data 03/09/2024 9:53 EDT Discharge Level of Care at Discharge Home/Jail/Foster Care Rehabilitation Discharge : Rehab Discharge Index 03/11/2024 10:50 EDT Comments on treatment indicated Pt. would benefit from skilled PT to increase functional strength and balance in a home setting. Full chart review completed Yes Hospital course Pt. admitted 03/10/24 for AMS/UTI Other findings Pt. found supine in bed, impulsive and asking to go home. Bed mobility<>EOB > stand I. Ambulation with no AD 250ft with CS/I. Pt. able to negotiate hallways with no LOB. return to room impulsive and slightly confused but able to follow simple Plan of care PT Therapeutic exercise, Functional Activities, Balance training * Kris LUTZ, Radha Faith: PERFORM Event Display: Progress Note Hospital Authored Date: [id number] Patient: ??LIZETH ROLLINS ? Age:??79 Years?Sex:??Female?:??1945?? Subjective The patient was seen and examined at bedside. She requested to be discharged home. ??She asked me to call her caregiver Bri. Patient appeared to be in her usual state of health.?? No overt agitation, able to answer simple questions. She denies any pain or discomfort. She is ambulating with physical therapy ?? Per my discussion with her caregiver Bri,??patient had a new onset of confusion, hallucination at home.?She already started??oral antibiotic treatment for UTI at home. Her caregiver Bri will??come in later to check on her. ??If the patient condition stable,??i.e. noagitation or hallucination, patient will be discharged home today Review of Systems Patient denies headache, fever, chest pain, abdominal pain, nausea vomiting,??dysuria. She has a chronic memory loss Objective Measurements?? Height: 158 cm (03/11/24) Weight: 66.3 kg (03/10/24) Dry Weight: 66.3 kg (03/10/24) Body Mass Index:??26.56 kg/m2??High (03/10/24) ? Vital Signs?? Temperature: 97.9 DegF (03/11/24 08:18:00) Temperature Route: Oral (03/11/24 08:18:00) Pulse Rate: 70 bpm (03/11/24 08:18:00) Respiratory Rate: 18 br/min (03/11/24 08:18:00) Systolic Blood Pressure:??167 mm Hg??High (03/11/24 08:18:00) Diastolic Blood Pressure:??90 mm Hg??High (03/11/24 08:18:00) Blood pressure sites: Arm, right (03/11/24 08:18:00) Mean Arterial Pressure: 116 mm Hg (03/11/24 08:18:00) Pulse Pressure: 77 mm Hg (03/11/24 08:18:00) Oxygen Saturation: 96 % (03/11/24 08:18:00) Mode of Delivery (Oxygen): Room air (03/11/24 08:18:00) Early Warning Score: 2 (03/11/24 08:18:52) ? Intake/Output? 03/10 19:03 03/11 07:00 03/10 07:00 08 07:00 03/08 07:00 ?? 03/11 12:03 03/11 12:03 03/11 06:59 09 06:59 03/09 06:59 Intake ?330 ?240 ? 90 ?0 ?0 Output ?0 ?0 ?0 ?0 ?0 Net Total ?330 ?240 ? 90 ?0 ?0 ? Urine Count ?6 ?2 ?4 ?0 ?0 ? Precautions Constant [employer] ? Physical Exam ?Gen; no acute respiratory distress, cooperating with exam, frail elderly female, pleasant, conversational ?HEENT; no facial asymmetry?Lungs; CATB ?Cardiac; RRR, no M/R/G ?Abdomen; soft nontender, nondistended, normal bowel sounds ?Extremity; no edema ?Neuro exam; alert oriented x2.5, gait steady??CN 2-12 normal ? _ Home Medications Alendronate (alendronate 70 mg oral tablet)?1?tab(s)?70?Milligram?By Mouth?Every week Cephalexin (cephalexin monohydrate 500 mg oral capsule)?1?capsule?500?Milligram?By Mouth?3 times a day?for 7?Days Cholecalciferol (Vitamin D3 50 mcg (2000 intl units) oral tablet, chewable)?0.5?tab(s)?25?Microgram?By Mouth?Daily Donepezil (donepezil 5 mg oral tablet)?5?Milligram?1?tablet?By Mouth?Daily at bedtime Gabapentin?400?Milligram?By Mouth?Daily at bedtime Levothyroxine (levothyroxine 25 mcg (0.025 mg) oral capsule)?1?capsule?25?Microgram?By Mouth?Daily Paroxetine?30?Milligram?By Mouth?Daily Pravastatin?20?Milligram?By Mouth?Daily ? Inpatient Medications Medications (15) Active SCHEDULED: (8) Ceftriaxone 1 Gm Inj (Ceftriaxone IVPB) ??1 Gm, IVPB, Every 24 hours Donepezil 5 mg Tablet (donepezil 5 mg oral tablet) ??5 mg, By Mouth, Daily at bedtime Enoxaparin 40 mg Inj (Enoxaparin Inj) ??40 mg 0.4 mL, Subcutaneous Injection, Daily Gabapentin 400 mg Capsule (gabapentin 400 mg oral capsule) ??400 mg, By Mouth, Daily at bedtime Levothyroxine 25 mcg Tablet (levothyroxine 0.025 mg oral tablet) ??25 mcg, By Mouth, Daily NaCl 0.9% Flush 3ml (NaCL 0.9% Flush) ??3 mL, IV Push, Every 8 hours Paroxetine 20 mg Tablet (PARoxetine 20 mg oral tablet) ??30 mg, By Mouth, Daily Pravastatin 20 mg Tablet (pravastatin 20 mg oral tablet) ??20 mg, By Mouth, Daily CONTINUOUS: (0) PRN: (7) Acetaminophen 325 mg Tablet (Tylenol 325 mg oral tablet) ??650 mg, By Mouth, Every 6 hours Al hydroxide/Mg hydroxide/simethicone 200 mg-200 mg-20 mg/5 mL Susp UD (Maalox Plus Liquid) ??15 mL, By Mouth, 4 times a day Calcium Carbonate 500 mg (Calcium 200 mg) Chewable Tablet (calcium carbonate 500 mg (200 mg elemental calcium) oral tablet, chewable) ??500 mg 1 tablet, Chew, Every 4 hours Docusate Sodium 100 mg Capsule (Colace sodium 100 mg oral capsule) ??100 mg 1 capsule, By Mouth, 2 times a day Melatonin 3 mg Tablet (Melatonin Tablet) ??6 mg, By Mouth, Daily at bedtime Polyethylene Glycol 17 Gm Powder (MiraLax Powder) ??17 Gm 1 pack/packet, By Mouth, Daily Simethicone 80 mg Chewable Tablet (simethicone 80 mg oral tablet, chewable) ??80 mg, Chew, 3 times a day ? 72 Hour Antibiotic History Active Antibiotics Calendar Day Last Administered First Administered Ceftriaxone??1 Gm, 100 mL/hr, IVPB, Every 24 hours ?1 03/11/2024 07:41 03/11/2024 07:41 ? Stopped Antibiotics Stop Date/Time Last Administered First Administered Ceftriaxone??1 Gm, 100 mL/hr, IVPB, Once 03/10/2024 18:02 03/10/2024 18:02 03/10/2024 18:02 ? Results Abnormal Labs ?? CHEM GENERAL AG Ratio?1.1 ()?03/10/2024 17:21 ALT (SGPT)?52 units/L (High)?03/10/2024 17:21 Albumin?3.3 Gm/dL (Low)?03/10/2024 17:21 Alkaline Phosphatase?140 units/L (High)?03/10/2024 17:21 Estimated GFR Creatinine?81 ML/MIN/1.73 M2 ()?03/10/2024 17:21 Glucose Level?131 mg/dL (High)?03/10/2024 17:21 ?? HEME OTHER Hold Blue Top?SPECIMEN DISCARDED AFTER 4 HOURS. ()?03/10/2024 17:21 Hold Lavender Top?SPECIMEN DISCARDED AFTER 24 HOURS. ()?03/11/2024 06:01 ?? MISC. CHEMISTRY Hold Green Top?SPECIMEN DISCARDED AFTER 1 WEEK ()?03/11/2024 06:01 ?? UA/URINALYSIS Albumin, Urine?NEGATIVE ()?03/10/2024 16:14 Appear/Color, Urine?YELLOW ()?03/10/2024 16:14 Bilirubin, Urine?NEGATIVE ()?03/10/2024 16:14 Clarity?CLEAR ()?03/10/2024 16:14 Glucose, Urine?NEGATIVE ()?03/10/2024 16:14 Hemoglobin, Urine?TRACE (Abnormal)?03/10/2024 16:14 Hold Urine Culture?Testing available 48 hours from time of collection. () ?03/10/2024 16:14 Ketones, Urine?NEGATIVE ()?03/10/2024 16:14 Leukocyte, Urine?1+ (Abnormal)?03/10/2024 16:14 Mucus?SLIGHT /LPF ()?03/10/2024 16:14 Nitrite, Urine?NEGATIVE ()?03/10/2024 16:14 Urobilinogen?2 mg/dL (Abnormal)?03/10/2024 16:14 ?? Note: Critical results are displayed in red. ? Blood Glucose Trend Glucose Level:??131 mg/dL??High (03/10/24 17:21:00) ? Blood Gases?? No qualifying data available. ? Assessment/Plan Diagnoses 1. ??Metabolic encephalopathy ??(G93.41) 2. ??Urinary tract infection ??(N39.0) 3. ??Dementia ??(F03.90) 4. ??HLD (hyperlipidemia) ??(E78.5) 5. ??Schizotypal disorder ??(F21) 6. ??Hypothyroidism ??(E03.9) ?? Assessment:??This is 79 years old female with history of dementia,??schizotypical disorder, hypothyroidism.??Patient is hospitalized at [facility] for acute onset hallucination, confusionin the setting of acute urinary tract infection ?? Metabolic encephalopathy (G93.41) ?Grouped with??Urinary tract infection (N39.0),??Dementia (F03.90) ? Posthospitalization, patient received IV ceftriaxone.??Patient is usually redirectable, no signs hallucination, gait steady Plan Continue IV ceftriaxone Encourage ambulation Follow-up on urine culture results Will touch base with the patient's caregiver Bri??to make sure patient is not at baseline.??Consider discharge home soon ?? HLD (hyperlipidemia) (E78.5):??Continue pravastatin ?? Hypothyroidism (E03.9):??Continue Synthroid ?? VTE Prophylaxis:??Patient is??ambulatory ?VTE Prophylaxis Assessment:??VTE Prophylaxis Ordered ?? Discharge Planning:??Home with services ?? Ongoing Medical Necessity:??Metabolic encephalopathy ?? Code Status:??Full code ?Order Code Status:??Code Status Ordered ? Billing code; 11170 Total preparation time 25 minutes with time spent at bedside and on the unit, time spent coordinating care with management, reviewing records and diagnostics. ?? This documentation was prepared using the [employer] voice recognition system. Please forgive any typographical, punctuation or contextual errors.?? Consult note * Niall Boyd DO: PERFORM, SIGN, VERIFY Event Display: Consultation Note Authored Date: Patient: LIZETH ROLLINS Age: 79 years Sex: Female : 1945 Associated Diagnoses: None Author: Niall Boyd DO Interprofessional Psychiatric Consultation Report Extensive chart review was performed in [facility]. 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 She has some mild forgetfulness and brief moments of disorientation at baseline. Two days ago, she began acting more confused. She was intermittently agitated. She was paranoid that the police were coming after her and hallucinating that people were in the room who were not there. The caregiver noticed some urinary frequency/more frequent trips to the bathroom but no overt dysuria, fevers or other infectious symptoms. She was seen in the ER yesterday and diagnosed with a UTI and started on keflex. She is brought back todaybecause the above have worsened and she was up all night, did not sleep and was found wandering thestreet covered up with a blanket around 3 AM. There is concern for primary delirium due to UTI as evident by the acute onset if symptoms coinciding with the infection. In contrast Schizotypal is a chronic type of personality disorder that does not present with acute changes in this manner. Diagnosis: Delirium due to UTI Schizotypal PD by history Plan: 1. Continue home psychiatric medications as prescribed. 2. Start Vistaril 50 mg PO Q6H PRN anxiety and Trazodone 50 mg PO daily at bedtime PRN insomnia. Can also utilize Seroquel 50 mg PO Q4H PRN agitation and/or Zyprexa 5 mg and Benadryl 50 mg PO/IM Q6H PRN agitation/psychosis depending on severity of symptoms. 3. Sometimes delirium can persist briefly after the infectious process has been treated. 4. The preference is for PO PRN medications, but if the patient refuses the oral medications and there is sufficient acute safety concern, can judiciously utilize IM or IV equivalents for severe agitation. No additional changes were made to scheduled psychotropic medications at this time. Would note that these medications are only being utilized in the hospital and should not be continued at discharge. 5. Given this is likely delirium, IPLOC is likely not warranted. 25 minutes spent on this consult including review of the patient's medical records, lab and/or imaging studies, medication profiles, writing chart notes, and communicating with healthcare professionals. Note * Kassy Sandoval RN: PERFORM Event Display: Discharge/Transfer Note Hospital Authored Date: [id number] Nursing Discharge Note Entered On: 03/12/2024 18:13 EDT Performed On: 03/12/2024 18:13 EDT by Kassy Sandoval RN Nursing Discharge Note 2 Discharge Time : 03/12/2024 18:00 EDT Discharge Level of Care at Discharge : Homehealth/VNA Discharge VNA/Hospice/Home Care(v001) : [facility] Patient Left Unit Via : Wheelchair Patient Accompanied Off Unit with : Responsible adult DC Instructions Provided & Signed by Pt : Yes Patient Understands D/C Instructions : Yes Patient Instructions Discharge Signed : Yes Did Pt have Specialty Bed or Wound Vac : No Jaime WELLER, Kassy - 03/12/2024 18:13 EDT * Kris LUTZ, Radha Faith: PERFORM Event Display: Discharge/Transfer Note Hospital Authored Date: [id number] Patient: ??LIZETH ROLLINS ? Age:??79 Years?Sex:??Female?:??1945?? Patient Information Discharge Location: Med Surg Primary Care Physician: Mitali Blanton MD Admit Date/Time: 03/10/24 19:03 Discharge Disposition Discharge Disposition: ?? Discharge Diagnosis Metabolic encephalopathy (G93.41) Urinary tract infection (N39.0) Dementia (F03.90) HLD (hyperlipidemia) (E78.5) Schizotypal disorder (F21) Hypothyroidism (E03.9) _ Discharge Medications Alendronate (alendronate 70 mg oral tablet)?1?tab(s)?70?Milligram?By Mouth?Every week Cephalexin (cephalexin monohydrate 500 mg oral capsule)?1?capsule?500?Milligram?By Mouth?3 times a day?for 7?Days Cholecalciferol (Vitamin D3 50 mcg (2000 intl units) oral tablet, chewable)?0.5?tab(s)?25?Microgram?By Mouth?Daily Donepezil (donepezil 5 mg oral tablet)?5?Milligram?1?tablet?By Mouth?Daily at bedtime Gabapentin?400?Milligram?By Mouth?Daily at bedtime Levothyroxine (levothyroxine 25 mcg (0.025 mg) oral capsule)?1?capsule?25?Microgram?By Mouth?Daily Paroxetine?30?Milligram?By Mouth?Daily Pravastatin?20?Milligram?By Mouth?Daily Quetiapine (QUEtiapine 25 mg oral tablet)?25?Milligram?1?tablet?By Mouth?Daily?as needed?for 30?Days?Agitation ? Medications Started Quetiapine Allergies Allergies ?(Active and Proposed Allergies Only) NKA? (Severity: Unknown severity, Onset: Unknown) ? 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 She lives with her long time friend Bri who also functions as a caregiver. She has some mild forgetfulness and brief moments of disorientation at baseline. Two days ago, she began acting more confused. She was intermittently agitated. She was paranoid that the police were coming after her and hallucinating that people were in the room whowere not there. The caregiver noticed some urinary frequency/more frequent trips to the bathroom but no overt dysuria, fevers or other infectious symptoms. She was seen in the ER yesterday and diagnosed with a UTI and started on keflex. She is brought back today because the above have worsened and she was up all night, did not sleep and was found wandering the street covered up with a blanket around 3 AM. ?? In the ER she is mildly tachycardic. Has a normal white count. Mild hypernatremia from yesterday has resolved. CT head from yesterday was non acute. She was given ceftriaxone and IV fluids.?? [1] Objective Assessment and Plan Assessment:??This is 79 years old female with history of dementia,??schizotypical disorder, hypothyroidism.??Patient is hospitalized at [facility] for acute onset hallucination, confusionin the setting of acute urinary tract infection ?? Metabolic encephalopathy (G93.41) ?Grouped with??Urinary tract infection (N39.0),??Dementia (F03.90) ? Post??hospitalization, patient received??antibiotic treatment,??no signs of sepsis.??Patient is usually redirectable, no signs hallucination, gait steady.?In the morning of??March 12,??patient had episode of agitation, does not respond to??redirection.??Received 2.5??mg of IM??Zyprexa.??Patient was seen by [facility] prior to discharge home. Plan Continue??Keflex antibiotic treatment as previously prescribed Encourage ambulation Discharge home, arrange visit VNA services Low-dose??quetiapine??25 mg??daily as needed for agitation.??Care plan was discussed with patient caregiver Bri??prior to discharge ?? HLD (hyperlipidemia) (E78.5):??Continue pravastatin ?? Hypothyroidism (E03.9):??Continue Synthroid ?? VTE Prophylaxis:??Patient is??ambulatory ?VTE Prophylaxis Assessment:??VTE Prophylaxis Ordered ?? Discharge Planning:??Home with services ?? Ongoing Medical Necessity:??Metabolic encephalopathy ?? Code Status:??Full code ?Order Code Status:??Code Status Ordered ? Measurements?? Height: 158 cm (03/12/24) Weight: 66.3 kg (03/10/24) Dry Weight: 66.3 kg (03/10/24) Body Mass Index:??26.56 kg/m2??High (03/10/24) ? Vital Signs?? Temperature: 97.9 DegF (03/12/24 05:25:00) Temperature Route: Oral (03/12/24 05:25:00) Pulse Rate: 69 bpm (03/12/24 05:25:00) Respiratory Rate: 16 br/min (03/12/24 05:25:00) Systolic Blood Pressure: 103 mm Hg (03/12/24 05:25:00) Diastolic Blood Pressure: 81 mm Hg (03/12/24 05:25:00) Blood pressure sites: Arm, right (03/12/24 05:25:00) Mean Arterial Pressure: 88 mm Hg (03/12/24 05:25:00) Pulse Pressure: 22 mm Hg (03/12/24 05:25:00) Oxygen Saturation:??93 %??Low (03/12/24 05:25:00) Mode of Delivery (Oxygen): Room air (03/12/24 05:25:00) Early Warning Score: 4 (03/12/24 05:25:47) ? Precautions No Precautions documented.? Mobility & Ambulation Level Mobility & Ambulation Level Ambulatory devices needed: Walker (03/11/24) ?? Therapeutic Activity Therapeutic Activities/Mobility/Balance Comments on treatment indicated: Pt. would benefit from skilled PT to increase functional strength and balance in a home setting. (03/11/24 10:50:00) Plan of care PT: Therapeutic exercise, Functional Activities, Balance training (03/11/24 10:50:00) Problems PT: Impaired strength/ROM, Impaired functional mobility, Impaired balance, Impaired safety(03/11/24 10:50:00) Treatment Indicated-PT: Yes (03/11/24 10:50:00) Discharge recommendations: Home with services (03/11/24 10:50:00) Ambulation, ??PT Plan: Independent (03/11/24 10:50:00) Barriers to goal achievement: Decreased function at baseline (03/11/24 10:50:00) Bed mobility: PT Plan: Independent (03/11/24 10:50:00) Equipment PT: Walker (03/11/24 10:50:00) custodial PT goals: At baseline for functional mobility (03/11/24 10:50:00) Plan discussed with care team PT: RN, PT (03/11/24 10:50:00) PT Short Term Goals: home with services (03/11/24 10:50:00) Rehab potential: Good (03/11/24 10:50:00) Transfer bed to chair PT Plan: Independent (03/11/24 10:50:00) Transfer Sit to Stand, PT Plan: Independent (03/11/24 10:50:00) ?? . Physical Exam ?Gen; no acute respiratory distress, cooperating with exam ?HEENT; no facial asymmetry?Lungs; CATB ?Cardiac; RRR, no M/R/G ?Abdomen; soft nontender, nondistended, normal bowel sounds ?Extremity; no edema ?Neuro exam; alert oriented x2, gait steady,??CN 2-12 normal ? Pending Results Add On Lab Order ordered on 03/10/2024 Add On Lab Order ordered on 03/10/2024 CBC ordered on 03/11/2024 Patient Education Titles WebMD Ignite Patient Education - What Is Delirium??? WebMD Ignite Patient Education - How Is Delirium Treated??? Web[employer] Ignite Patient Education - Who's at Risk for Delirium??? Web[employer]ite Patient Education - Recognizing Delirium: A Checklist for Caregivers?? Follow-Up Appointments Added Follow Up ?Time Frame ?Comments Mitali Blanton MD?1 to 2 weeks Patient Instructions ?? -Continue regular diet, activity as tolerated -Frequent orientation, encourage ambulation -Please continue medications as prescribed, follow-up with PCP in 1???2??weeks ?? Home Health Face to Face *Denotes mandatory ricketts ?? *I certify that this patient is under my care and that I or an allowed non- physician working with me had a face to face encounter with the patient on this date:??03/12/2024 15:33 ?? *The encounter with the patient was in whole, or in part, for the following medical condition, which is the primary diagnosis(es) for home health care:??Metabolic encephalopathy (G93.41) Urinary tract infection (N39.0) Dementia (F03.90) HLD (hyperlipidemia) (E78.5) Schizotypal disorder (F21) Hypothyroidism (E03.9) ?? *Select the indications for the discipline/s that are being arranged for this patient. Nursing (select all that apply): [_] None [x_] Medication management (reconciliation, teaching)?? [x_] Chronic disease management?? [_] Wound care and treatment?? [_x] Home safety evaluation [_] Administer SQ/IM/IV medications?? [_] Cath care?? [_] Drain care?? [_] Trach or GT care?? Other _ Occupation Therapy (select all that apply): [_] None [_] ADL Management [_] Fall prevention training [_] Energy conservation [_] Cognitive training Other _ Physical Therapy (select all that apply): [_] None [_] Functional mobility training [_x] Home exercise program to strengthen [_x] Increase ROM?? [x_] Falls prevention training [_x] Home maintenance program for chronic disease Other _ Speech Therapy (select all that apply): [_] None [_] Swallow evaluation and training [_] Speech and language training [_] Cognitive training to process, organize, and/or recall information Other _ ? *Homebound due to (select all that apply): [_] Inability to leave home without assistance/supervision [_] Inability to ambulate without assistance [_] Pain [_] Decreased strength and endurance [_] Unsteady gait [_] Severe SOB and fatigue [_] Impaired transfers [_] Inability to negotiate stairs [_] Limited weight bearing [_x] Mental status change? *Physician Signature: _Radha Ponce MD Ph D ?? *By signing this, I certify that I have personally evaluated the patient and agree with the findings and recommendations as documented above. ? Results Discharge Labs BACTERIOLOGY Urine Culture Results Final report ()?? 03/10/2024 16:00 ? CHEM GENERAL Sodium 141 mmol/L ()?? 03/10/2024 17:21 Potassium 3.8 mmol/L ()?? 03/10/2024 17:21 Chloride 107 mmol/L ()?? 03/10/2024 17:21 Bicarbonate Level 22 mmol/L ()?? 03/10/2024 17:21 Anion Gap 12 ()?? 03/10/2024 17:21 Glucose Level 131 mg/dL (High)?? 03/10/2024 17:21 BUN 14 mg/dL ()?? 03/10/2024 17:21 Creatinine-Blood 0.74 mg/dL ()?? 03/10/2024 17:21 Estimated GFR Creatinine 81 ML/MIN/1.73 M2 ()?? 03/10/2024 17:21 Calcium 9.1 mg/dL ()?? 03/10/2024 17:21 Protein, Total 6.3 Gm/dL ()?? 03/10/2024 17:21 Albumin 3.3 Gm/dL (Low)?? 03/10/2024 17:21 AG Ratio 1.1 ()?? 03/10/2024 17:21 Alkaline Phosphatase 140 units/L (High)?? 03/10/2024 17:21 AST (SGOT) 23 units/L ()?? 03/10/2024 17:21 ALT (SGPT) 52 units/L (High)?? 03/10/2024 17:21 Bilirubin, Total 0.3 mg/dL ()?? 03/10/2024 17:21 Vitamin B12 Level 451 pg/mL ()?? 03/11/2024 06:21 ?? ENDOCRINE/TUMOR MARKER TSH 2.68 uIU/mL ()?? 03/10/2024 17:27 ? HEME OTHER Hold Lavender Top SPECIMEN DISCARDED AFTER 24 HOURS. ()?? 03/11/2024 06:01 Hold Blue Top SPECIMEN DISCARDED AFTER 4 HOURS. ()?? 03/10/2024 17:21 ?? MISC. CHEMISTRY Hold Green Top SPECIMEN DISCARDED AFTER 1 WEEK ()?? 03/11/2024 06:01 ? UA/URINALYSIS Appear/Color, Urine YELLOW ()?? 03/10/2024 16:14 Clarity CLEAR ()?? 03/10/2024 16:14 Specific [place], Urine 1.025 ()?? 03/10/2024 16:14 pH, Urine 5.5 ()?? 03/10/2024 16:14 Albumin, Urine NEGATIVE ()?? 03/10/2024 16:14 Glucose, Urine NEGATIVE ()?? 03/10/2024 16:14 Ketones, Urine NEGATIVE ()?? 03/10/2024 16:14 Bilirubin, Urine NEGATIVE ()?? 03/10/2024 16:14 Hemoglobin, Urine TRACE (Abnormal)?? 03/10/2024 16:14 Nitrite, Urine NEGATIVE ()?? 03/10/2024 16:14 Leukocyte, Urine 1+ (Abnormal)?? 03/10/2024 16:14 Urobilinogen 2 mg/dL (Abnormal)?? 03/10/2024 16:14 WBC's, Urine 5 /HPF ()?? 03/10/2024 16:14 RBC's, Urine <1 /HPF ()?? 03/10/2024 16:14 Squamous Epith 4 /HPF ()?? 03/10/2024 16:14 Mucus SLIGHT /LPF ()?? 03/10/2024 16:14 Hold Urine Culture Testing available 48 hours from time of collection. ()?? 03/10/2024 16:14 ? URINE OTHER Est Creatinine Clearance 47.60 mL/min ()?? 03/10/2024 18:00 Urine Culture Specimen Source URINE ()?? 03/10/2024 16:00 Urine Culture Isolate 1 Comment ()?? 03/10/2024 16:00 ? 35 ??minutes spent on discharge Discharge code 23308; this discharge preparation with time spent at the bedside, coordinating care with consulting physicians, transition care as well as performing atgo-sw-rdce documentation/patienteducation. This documentation was prepared using the [employer] voice recognition system. Please forgive any typographical, punctuation or contextual errors. ?? [1]??Initial Evaluation Note; Tianna Cordoba 03/10/2024 20:03 EDT * Christ WELLER, [employer]: PERFORM, MODIFY Event Display: Patient Education/Instruction Authored Date: Inpatient Adult Discharge Instructions. [address] [address] Name: LIZETH ROLLINS : 1945?? Visit: 03/10/2024 19:03?? Current Date: 03/12/2024 15:53 ?? Account: [id number]?? Inpatient Adult Discharge Instructions We would like to thank you for allowing us to assist you with your healthcare needs. The following includes patient education materials and information regarding your injury/illness. Our entire staffstrives to provide an excellent experience for our patients and their families. PLEASE ENSURE YOU FOLLOW-UP PER THE INSTRUCTIONS BELOW! ?? YOUR OPINION IS IMPORTANT TO US! Please complete the survey you may receive by mail or email. Your feedback will be used to make improvements to the healthcare experiences of our patients and their families. Surveys are administered by [email or web address]. ?? If further treatment with your primary care physician or another doctor is recommended, it is important for you to keep the appointment. Call your primary care physician or return to the Emergency Department immediately if your condition worsens, fails to improve, or new symptoms develop. If you need to find a doctor, you can call [facility] [employer] for a referral at [phone] or toll free at [phone] or log in to [email or web address].. ?? [facility], in keeping with [facility] guidance, no longer requires face masks for staff, patientsor visitors in most situations. Similiar to time spent indoors at other locations, there is the chance that you were exposed to repiratory viruses during your time with us (such as flu or COVID-19). If you develop symptoms concerning for a viral respiratory infection, please seek testing (and treatment if indicated) from your medical provider or home test kit. ?? You can view and manage your care through the patient portal or by using a health care jaleel of your choosing. [employer] is a website that allows you to securely view your medical information including your hospital discharge summary, office visit summaries, medications and follow-up visits. You can also request appointments, renew medications, and request access to your medical information using a health care jaleel of your choosing, or just ask a question. You can enroll at [email or web address] or register during your next office visit. You have been discharged from [facility], Patient Care Unit: Med Surg??. If you have any questions regarding these instructions, including results of studies pending, afteryou leave, please call us and we will be happy to assist you 24/04. [facility] Your Care Team Attending Physician Radha Ponce MD?? Consulting Providers Radha Ponce MD?? Discharging Providers Radha Ponce MD Reason for Your Visit AMS. Delirium. UTI?? Your Diagnosis Metabolic encephalopathy Urinary tract infection Dementia HLD (hyperlipidemia) Schizotypal disorder Hypothyroidism Altered mental status Tests Performed Below is a partial list of the tests performed during your hospitalization. You may have had other tests and procedures not included in this list. Please discuss all test results with your provider. Comprehensive Metabolic Panel HOLD BLUE TUBE HOLD GREEN TUBE HOLD LAVENDER TUBE TSH WITH REFLEX TO FT4 Urinalysis w/hold for Urine Culture Urine Culture Result Urine Culture, Routine URINE MICROSCOPIC VITAMIN B12 Add On Lab Order?? CBC?? Primary Care Provider Mitali Blanton MD? Advance Directive Health Care Proxy on File No Patient refuses to discuss Discharge Vitals Temperature: 97.9 DegF Height: 158 cm Pulse Rate: 69 bpm Weight: 66.3 kg Respiratory Rate: 16 br/min Body Mass Index:??26.56 kg/m2??High Systolic Blood Pressure: 103 mm Hg Body surface area: 1.71 Diastolic Blood Pressure: 81 mm Hg ?? Oxygen Saturation:??93 %??Low ?? Studies Pending All studies ordered during this hospital stay have been completed unless listed below. Please discuss all pending results with your provider listed above in these instructions. ?? Add On Lab Order?? CBC?? What to do next Instructions From Your Doctor ?? -Continue regular diet, activity as tolerated -Frequent orientation, encourage ambulation -Please continue medications as prescribed, follow-up with PCP in 1???2??weeks ? Orders? 03/12/24 15:34:00 EDT?? You Need to Schedule the Following Appointments Follow Up with??Mitali Blanton MD When:??Within 1 to 2 weeks Where: [address] [place] [address]- Discharge Medications LIZETH ROLLINS :1945 Visit Date:03/10/2024 Medications: Please continue your medications until treatment is completed or stopped by your provider. Medications not listed below should be discontinued. Discuss any questions related to medications with your provider. What How Much When Instructions Next Dose New Quetiapine (QUEtiapine 25 mg oral tablet) 1 tab(s) Oral Daily as needed for Agitation Duration: 30 Days [id number] tomorrow as directed if needed Changed Levothyroxine (levothyroxine 25 mcg (0.025 mg) oral capsule) 1 capsule Oral Daily tomorrow Unchanged Alendronate (alendronate 70 mg oral tablet) 1 tab(s) Oral Every week resume schedule Unchanged Cephalexin (cephalexin monohydrate 500 mg oral capsule) 1 capsule Oral 3 times a day Duration: 7 Days tonight Unchanged Cholecalciferol (Vitamin D3 50 mcg (2000 intl units) oral tablet, chewable) 0.5 tab(s) Oral Daily tomorrow Unchanged Donepezil (donepezil 5 mg oral tablet) 1 tab(s) Oral Daily at Bedtime tonight Unchanged Gabapentin 400 Milligram Oral Daily at Bedtime tonight Unchanged Paroxetine 30 Milligram Oral Daily tomorrow Unchanged Pravastatin 20 Milligram Oral Daily tomorrow Pharmacy Information [facility] #[id number]: [address], [place] [phone] ?? What How Much When Comments Stop Taking Memantine (Namenda) Oral Twice a day Stop Taking nirmatrelvir-ritonavir (Paxlovid 150 mg-100 mg oral tablet) See instructions 300mg nirmatrelvir (two 150mg tablets) with 100mg ritonavir (one tablet). All 3 tablets taken together twice daily for 5 days, with or without food. ?? Prescription Given During Visit Quetiapine (QUEtiapine 25 mg oral tablet) - 1 tablet = 25 mg, By Mouth, Daily, # 30 tablet, 0 Refills, [facility] #[id number], [address] [place] [phone]?? Laboratory Results Below is a partial list of the most recent Laboratory test results done prior to this discharge. You may have had other tests and procedures not included in this list. Please discuss all test resultswith your provider. Est Creatinine Clearance - 47.60 mL/min (03/10/2024) Comprehensive Metabolic Panel (03/10/2024) ???Sodium - 141 mmol/L???Potassium - 3.8 mmol/L???Chloride - 107 mmol/L???Bicarbonate Level - 22 mmol/L???Anion Gap - 12???Glucose Level - 131 mg/dL???BUN - 14 mg/dL???Creatinine-Blood - 0.74 mg/dL???Estimated GFR Creatinine - 81 ML/MIN/1.73 M2???Calcium - 9.1 mg/dL???Protein, Total - 6.3 Gm/dL???Albumin - 3.3 Gm/dL???AG Ratio - 1.1???Alkaline Phosphatase - 140 units/L???AST (SGOT) - 23 units/L???ALT (SGPT) - 52 units/L???Bilirubin, Total - 0.3 mg/dL HOLD BLUE TUBE (03/10/2024) ???Hold Blue Top - SPECIMEN DISCARDED AFTER 4 HOURS. HOLD GREEN TUBE (03/11/2024) ???Hold Green Top - SPECIMEN DISCARDED AFTER 1 WEEK HOLD LAVENDER TUBE (03/11/2024) ???Hold Lavender Top - SPECIMEN DISCARDED AFTER 24 HOURS. TSH WITH REFLEX TO FT4 (03/10/2024) ???TSH - 2.68 uIU/mL Urinalysis w/hold for Urine Culture (03/10/2024) ???Appear/Color, Urine - YELLOW???Clarity - CLEAR???Specific [place], Urine - 1.025???pH, Urine - 5.5???Albumin, Urine - NEGATIVE???Glucose, Urine - NEGATIVE???Ketones, Urine - NEGATIVE???Bilirubin, Urine - NEGATIVE???Hemoglobin, Urine - TRACE???Nitrite, Urine - NEGATIVE???Leukocyte, Urine - 1+???Ur obilinogen - 2 mg/dL???Hold Urine Culture - Testing available 48 hours from time of collection. Urine Culture Result (03/10/2024) ???Urine Culture Isolate 1 - Comment Urine Culture, Routine (03/10/2024) ???Urine Culture Results - Final report???Urine Culture Specimen Source - URINE URINE MICROSCOPIC (03/10/2024) ? ?WBC's, Urine - 5 /HPF? ?RBC's, Urine - <1 /HPF? ?Squamous Epith - 4 /HPF? ?Mucus - SLIGHT VITAMIN B12 (03/11/2024) ???Vitamin B12 Level - 451 pg/mL Allergies (NKA means No Known Allergies) NKA Problems Active Problems??(7) allergic rhinitis?? COVID-19?? Dementia?? HLD (hyperlipidemia)?? Hypothyroidism?? Osteoporosis?? Schizotypal disorder?? Education Materials Below is the list of Educational Leaflet Providered with your Discharge Instructions. [employer] Patient Education - What Is Delirium??? [employer] Patient Education - How Is Delirium Treated??? [employer] Patient Education - Who's at Risk for Delirium??? [employer] Patient Education - Recognizing Delirium: A Checklist for Caregivers?? Valuables and Belongings I fully understand and agree that [facility] accepts no responsibility for all my personal property including clothing, toilet articles, radios, jewelry, dentures, hearing aids, rings, money, or any other property that is in my possession or is brought to me after admission. I understand certain valuables may be placed in a hospital safe for a short period of time. I understand that the hospital is not liable for loss or damage due to accident, fire, or other natural occurrence while said property is in the safe. I accept full responsibility for any personal property that I keep with me, and will not hold the hospital responsible in case of loss or disappearance. I acknowledge that i have been encouraged to send valuables and belongings home. ?? Review of Valuable and Belonging List: With patient Date for Pt to Sign Valuables/Belongings: 03/10/24 20:11:00 ?? Other Discharge Information ? Case Management Discharge Plan?? Discharge Plan?? Discharge Agency Information?? Discharge Level of Care at Discharge: Homehealth/VNA Name of Agency #1: [facility] Discharge VNA/Hospice/Home Care: [facility] [facility] Service Categories #1: Physical Therapy, Jail ?? Service Comments #1: [facility] will call and schedule a nursing visit within 24 hours of discharge. Please call them if they do not call you. ?? Pulmonary Rehab Status?? Pulmonary Rehab Discharge Status?? Respiratory Rate: 16 br/min ? Common Emergency Awareness Tips IS IT A STROKE? Act FAST and Check for these signs: FACE Does the face look uneven? ARM Does one arm drift down? SPEECH Does their speech sound strange? TIME Call at any sign of stroke ?? Heart Attack Signs Chest discomfort: Most heart attacks involve discomfort in the center of the chest and lasts more than a few minutes, or goes away and comes back. It can feel like uncomfortable pressure, squeezing, fullness or pain. Discomfort in upper body: Symptoms can include pain or discomfort in one or both arms, back, neck, jaw or stomach. Shortness of breath: With or without discomfort. Other signs: Breaking out in a cold sweat, nausea, or lightheaded. Remember, MINUTES DO MATTER. If you experience any of these heart attack warning signs, call to get immediate medical attention! ?? Smoking can increase your chances of developing chronic health problems and can cause harmful effects to other family members in your house. If you smoke, you are strongly encouraged to quit. Please call [facility] at [phone] or [phone] or log in to [email or web address] for referrals to smoking cessation programs. ?? 752 Suicide & Crisis Lifeline is available 24/04 if you or someone you know needs to find a reason to keep living. By calling 403 you'll be connected to a skilled, trained counselor at a crisis center in your area. INPATIENT DISCHARGE INSTRUCTIONS SIGNATURE PAGE LIZETH ROLLINS Location:[facility] Registration Date and Time:03/10/2024 19:03 EDT Primary Care Physician: Mitali Blanton MD, Attending Physician: Radha Ponce MD, I LIZETH ROLLINS, have received the above patient education materials/instructions and have verbalized understanding. If ambulance or transport services are being used I further acknowledge being given a choice of service. ?? If you need to contact me, please call me at this number: . Patient/Tobacco Stripper Hand Name: Patient/Tobacco Stripper Hand Signature: Relationship to Patient: Witness Name/Signature: Date: * Genesis Ploo RN: PERFORM Event Display: Patient Education Leaflets Authored Date: [id number] Quetiapine Oral Tablet ?? [id number] Quetiapine Oral Tablet Brands: Seroquel Uses This medicine is used for the following purposes: ??? anxiety ??? bipolar disorder ??? depression ??? schizophrenia ?? Instructions This medicine may be taken with or without food. This medicine will work best if you take it at about the same time every day. Keep the medicine at room temperature. Avoid heat and direct light. It may take several weeks for this medicine to fully work. It is important that you keep taking each dose of this medicine on time even if you are feeling well. If you forget to take a dose on time, take it as soon as you remember. If it is almost time for thenext dose, do not take the missed dose. Return to your normal schedule. Do not take 2 doses at one time. Tell your doctor and pharmacist about all your medicines. Include prescription and tzoh-mye-xjsukmhbdtrwvsyd, vitamins, and herbal medicines. Do not suddenly stop taking this medicine. Check with your doctor before stopping. This medicine may cause higher blood sugar levels or diabetes. Please follow your doctor's instructions and check your blood sugar level regularly while on this medicine. ?? Cautions Tell your doctor and pharmacist if you ever had an allergic reaction to a medicine. Do not use the medication any more than instructed. This medicine may cause dizziness or fainting. Do not stand or sit up quickly. Your ability to stay alert or to react quickly may be impaired by this medicine. Do not operate machinery or drive while on this medicine. Do not drink beverages with alcohol while on this medicine. Avoid becoming overheated during exercise or other activities. Try to stay cool in hot weather. Family should check on the patient often. Call the doctor if patient becomes more depressed, has thoughts of suicide, or shows changes in behavior. Contact your doctor if you notice a change in the amount or darkening of your urine. Tell the doctor or pharmacist if you are , planning to be , or . Do not start or stop any other medicines without first speaking to your doctor or pharmacist. Do not share this medicine with anyone who has not been prescribed this medicine. Some patients have serious side effects from this medicine. Ask your pharmacist to show you the information from the Food and Drug Administration (FDA) and discuss it with you. ?? Side Effects The following is a list of some common side effects from this medicine. Please speak with your doctor about what you should do if you experience these or other side effects. ??? agitated feeling or trouble sleeping ??? constipation ??? dizziness or drowsiness ??? dry mouth??? headaches ??? rapid heartbeat ??? low blood pressure ??? muscle pain ??? red, burning, or itchyskin ??? weight gain Call your doctor or get medical help right away if you notice any of these more serious side effects: ??? breathing interruption during sleep ??? fever ??? swelling in the neck or throat ??? difficultyor discomfort urinating A few people may have an allergic reaction to this medicine. Symptoms can include difficulty breathing, skin rash, itching, swelling, or severe dizziness. If you notice any of these symptoms, seek medical help quickly. ?? Extra Please speak with your doctor, nurse, or pharmacist if you have any questions about this medicine. ?? [email or web address] IMPORTANT NOTE: This document tells you briefly how to take your medicine, but it does not tell youall there is to know about it. Your doctor or pharmacist may give you other documents about your medicine. Please talk to them if you have any questions. Always follow their advice. There is a more complete description of this medicine available in Jamaican. Scan this code on your smartphone or tablet or use the web address below. You can also ask your pharmacist for a printout. If you have any questions, please ask your pharmacist. The display and use of this drug information is subject to Terms of Use. Copyright(c) 2023 [employer]. ?? The documistic. All rights reserved. This information is not intended as a substitute for professional medical care. Always follow your healthcare professional's instructions. ?? * Kris LUTZ, Radha Faith: PERFORM Event Display: Patient Education Leaflets Authored Date: [id number] What Is Delirium? ?? 92338 What Is Delirium? Delirium is a sudden change in a person???s mental state that varies over short periods of time. Itcan cause a person to have a hard time paying attention or have a conversation. Their thinking and speech may not make sense and be random. A person???s mental state may change from being restless and alert to slow and sleepy. At times, the person can be confused, argue, and see or hear things that you don't. Delirium is a medical emergency. If it's not diagnosed and treated, it can lead to lasting problemsor . Who is at risk? Delirium most often affects older adults or those. People are also at greater risk if they have existing brain problems, such as a past stroke. Delirium can happen when a person is in an unfamiliar place, such as a hospital. It's common after surgery or during a serious illness. Drug use or withdrawal from drug or alcohol use can cause it. Some medicines can cause it. And toxins and infections can cause it. A disease that affects the kidneys or liver can cause toxins to build up in the body. This can cause delirium. Not enough oxygen due to lung disease can cause it. In most cases, something triggers the delirium. Often it may be the first sign that a person has dementia. But dementia is a different condition. It's permanent and usually gets worse over months or years. Delirium can be upsetting for family and friends to see. But steps can be taken to help manage it. These can help ensure your loved one???s safety and comfort. ?? What are the signs of delirium? The signs of delirium can come and go over hours or days. A person may: ??? Seem sleepy and quiet ??? Be confused* ??? Have trouble paying attention and focusing* ??? Not know where they are* ??? See or hear things that others can???t see or hear (hallucinations) ??? Believe things that aren???t known to be true (delusions) ??? Think that people want to harm the person(paranoia) ??? Have trouble remembering things that just happened* ??? Change the subject too oftenwhile talking ??? Talk about things that may not make sense* ??? Seem restless and alert ??? Becomeviolent* ??? Have less interest in eating* ??? Seem to be depressed and not interested in doing things* ??? Have quick emotional changes such as anxiety or sadness, or strong moods of gayla and excitement (euphoria) ??? Be unsteady while walking* ??? Have twitching or stiff movement in the arms, legs, or neck* *These symptoms can also happen with dementia and other health problems. Talk with a healthcare provider if a person has these. ?? If you think someone has delirium Delirium is a medical emergency. If you think a person has delirium, get medical help right away. If the person is at home, call 911. If they're in the hospital, tell a healthcare provider right away. ?? Last Reviewed Date: 2021 ?? [id number] The documistic. All rights reserved. This information is not intended as a substitute for professional medical care. Always follow your healthcare professional's instructions. ?? * Kris LUTZ, Radha Faith: PERFORM Event Display: Patient Education Leaflets Authored Date: [id number] How Is Delirium Treated? ?? 91717 How Is Delirium Treated? Delirium is a sudden change in a person???s mental state that happens over short periods of time. It can cause a person to have a hard time paying attention or following a conversation. Thinking and speech may be confused, unclear, and random. A person???s mental state may vary. They may be restless and alert and then sluggish and sleepy. If you think your loved one may have delirium, get help from a healthcare provider right away or call 911. How delirium causes harm Delirium is a medical emergency. It has a big effect on the health of older adults. Studies have shown that delirium may: ??? Cause a decline in day-to-day living ??? Make a person unable to care for themselves ??? Lead to extra days in the hospital ??? Lead to a higher risk of falls ??? Mean a higher risk of dying within 6 to 12 months ??? Put a person at higher risk of long-term mental health problems ??? Greatly increase the risk of dementia in a person without dementia ??? Be the first sign of dementia ??? Be linked to a person???s dementia getting more severe ??? Cause faster mental decline in a person with dementia ??? Make a person more likely to live in a long-term care facility ??? Cause money problems due to high healthcare costs ?? Finding the cause Delirium is treated by finding and treating the cause. It has many possible causes. These include: ??? Reaction to medicine or recreational drugs ??? Pain ??? Poor nutrition ??? Constipation ??? Trouble emptying the bladder when peeing (urinary retention) ??? Dehydration ??? Withdrawal from heavy alcohol use or from drugs ??? Changes in blood chemistry ??? Infection ??? Stroke ??? Failure of organs such as the liver or kidneys ??? Heart disease ??? Lung disease or low oxygen levels ??? Seizures A healthcare provider will take a full health history and do a physical exam. They may do tests to find the cause of a person???s delirium. The tests may include: ??? Asking questions. This is done to check for cognitive changes. ??? Blood and urine tests. [place] for signs of infection and changes in blood chemistry. ??? Electroencephalogram (EEG). This cayden test for seizures and can show patterns indicating other causes of delirium. ??? Imaging tests. ACT scan or MRI of the head can check for problems in the brain like bleeding, infection, or a tumor. ??? Lumbar puncture (spinal tap). This is done to look for infection of the spinal fluid or brain. ?? Common treatments for delirium Once a cause is found, steps are taken to treat the cause. In many cases, the delirium may go away.For example, fluids may be given if the person is dehydrated. Or antibiotics may be given for an infection. And oxygen may be given if the person has low oxygen levels. It is important to keep the person safe. Removing unneeded IV (intravenous) tubes, restraints, and catheters is often helpful. Make sure they have their glasses or hearing aids in place. Medicines ordrugs that can affect the mind should be reduced or stopped. In rare cases, medicines may be given to a person who is severely agitated. Having family members help with care is encouraged. This is because familiar faces are reassuring. The person???s sleep-wake cycle should be restored. To do this,it???s helpful to discourage napping and expose to the person to bright light during the day.? How long does delirium last? Delirium may take days, weeks, or months to go away. Delirium may not go away in people with late stages of illness or near the end of life. Talk with the healthcare provider about your loved one???ssituation and the treatment options available. ?? Last Reviewed Date: 2022 ?? [id number] The documistic. All rights reserved. This information is not intended as a substitute for professional medical care. Always follow your healthcare professional's instructions. ?? Patient Care team information Care Team Personnel Name: Mitali Blanton MD Position: [facility] Physician - Primary Care Member Role: PCP Address: Address: [address] [place] [address]- Name: Jennifer Dale RN Position: S RN Member Role: Primary Care Nurse Name: Patricia Hood RN Position: S RN Member Role: Primary Care Nurse Care Team Related Persons Name: DOUGHERTYTRICIA CHEN Address: home [address] [place] [address] Name: TRICIA ARIAS Address: home [address] [place] [address]
--- OUTSIDE RECORDS SUMMARY | 2024-04-25 13:50 | XMS_ITS | Continuity of Care Document ---
Author Organization [facility] Address [address] [place] [id number]- Care Team Providers Care Rooming House Keeper Name Role Phone Mitali Blanton MD [id number] Date([facility]): 03/21/24 - 04/01/[address] [address]- Encounter Diagnosis Delirium(Final) - 03/21/24 Dementia(Final) - 03/21/24 Acute kidney injury(Final) - 03/21/24 Discharge Disposition: A-Transfer VNA/Home Health Attending Physician: Almita LUTZ, Shiraz Wilderhav Admitting Physician: José Miguel LUTZ, Leslie Ortiz Referring Physician: Not on Staff, Referring MD Allergies, Adverse Reactions, Alerts No Known Allergies Medications alendronate 70 mg oral tablet 1 tablet = 70 mg, By Mouth, Every week, # 4 tablet, 0 Refills, Maintenance, 03/10/24 19:26:00 EDT, Tablet, Partial fill upon patient request if the prescription is for a schedule II opioid drug. Start Date: 03/10/24 Status: Ordered divalproex sodium 500 mg oral enteric coated tablet = 500 mg, By Mouth, 2 times a day, # 120 tablet, 0 Refills, Maintenance, 04/01/24 14:12:00 EDT, Tablet, [id number], Partial fill upon patient request if the prescription is for a schedule II opioid drug., 158, cm, 03/21/24 8:15:00 EDT... Start Date: 04/01/24 Stop Date: 05/31/24 Status: Ordered donepezil 5 mg oral tablet 5 mg, 1, tablet, By Mouth, Daily at bedtime, Refills 0, Maintenance, 03/09/24 7:59:00 EDT, Partial fill upon patient request if the prescription is for a schedule II opioid drug. Start Date: 03/09/24 Status: Ordered gabapentin 100 mg oral capsule See Instructions, Please take 200 mg By Mouth Daily in AM and 200 mg daily at 1 PM, # 120 capsule, Refills 0, Tot. Refills 0, Maintenance, 03/21/24 12:45:00 EDT, Instructions Replace Required Details, Route to Pharmacy Electronically, [facility]... Start Date: 03/21/24 Status: Ordered gabapentin 100 mg oral capsule 200 mg, Capsule, By Mouth, 04/01/24 9:00:00 EDT Start Date: 04/01/24 Stop Date: 04/01/24 Status: Completed levothyroxine 25 mcg (0.025 mg) oral capsule 1 capsule = 25 mcg, By Mouth, Daily, # 30 capsule, 0 Refills, Maintenance, 03/10/24 19:27:00 EDT, Capsule, Partial fill upon patient request if the prescription is for a schedule II opioid drug. Start Date: 03/10/24 Status: Ordered Pravastatin = 20 mg, By Mouth, Daily, 0 Refills, Maintenance, 08/20/22 9:06:00 EST, Partial fill upon patient request if the prescription is for a schedule II opioid drug. Start Date: 08/20/22 Status: Ordered SEROquel 50 mg oral tablet 1 tablet = 50 mg, By Mouth, 2 times a day, # 180 tablet, 0 Refills, Maintenance, 04/01/24 14:12:00 EDT, Tablet, [id number], Partial fill upon patient request if the prescription is for a schedule II opioid drug., 158, cm, 03/21/24 8:1... Start Date: 04/01/24 Status: Ordered traZODone 50 mg oral tablet 50 mg, By Mouth, Daily at bedtime, # 60 tablet, Refills 0, Tot. Refills 0, Maintenance, 04/01/24 14:12:00 EDT, Route to Pharmacy Electronically, [facility] #[id number], Partial fill upon patientrequest if the prescription is for a schedule II op... Start Date: 04/01/24 Stop Date: 05/31/24 Status: Ordered Vitamin D3 50 mcg (2000 [...] Confirmed Active 1Problem added by Discern Expert Results Radiology Reports * Exam Date Time Procedure Performing Provider Status 03/22/24 4:[address] Head/Brain W/O Contrast Jerry Ferrell; Auth (Verified) Notes: (CT Head/Brain W/O Contrast) Reason For Exam: right lid ptosis;Other: RESULT: CT Head/Brain W/O Contrast CT Head/Brain W/O Contrast Reason: Right lid ptosis. Clinical Question(s): Infarction. TECHNIQUE: Noncontrast head CT using axial technique and reconstructed in axial and coronal planes.Weight-based protocol using automatic tube modulation was used to optimize exposure parameters. CTDIvol Head: 48.20 mGy, DLP Head: 1544 mGy*cm. COMPARISON: 03/09/2024 FINDINGS: BRAIN and EXTRA-AXIAL SPACES: No parenchymal hemorrhage, midline shift or mass effect. Hearn-white matter differentiation is well preserved. No acute infarct. Negative insular ribbon sign. Atherosclerotic vascular calcification ofthe carotid and vertebral arteries but negative hyperdense vessel sign. Mild prominence of the ventricles and sulci consistent with parenchymal volume loss. Mild low-density white matter changes. No subarachnoid hemorrhage, subdural or epidural collections. CALVARIUM, SKULL BASE AND SOFT TISSUES: No fractures or suspicious bony lesions. The paranasal sinuses and mastoid air cells are clear. Status-post bilateral lens extraction. Unchanged chronic appearing changes to the right lobe likely posttraumatic. The extracranial soft tissues are unremarkable. IMPRESSION: No acute intracranial abnormality. I have personally reviewed the images and I agree with this report. WSN: [id number] Ordering Physician: Damian Melo Dictated By: Matias LUTZ, Parmjit Gutierrez Dictated Date/Time: 03/22/24 4:18 pm Reviewed By: Kevin Mariee MD Signed By: Kevin Mariee MD Signed Date/Time: 03/22/24 4:23 pm Transcribed By: COURTNEY Transcribed Date/Time: 03/22/24 4:11 pm Vital Signs Most recent to oldest [Reference Range]: 1 2 3 Oxygen Saturation [94-100 %] 98 % (04/01/24 12:05 PM) 99 % (04/01/24 7:25 AM) 99 % (03/31/24 7:57 PM) Pulse Rate [55-90 bpm] 81 bpm (04/01/24 12:05 PM) 68 bpm (04/01/24 7:25 AM) 77 bpm (03/31/24 7:57 PM) Blood Pressure [90-138/55-84 mm Hg] 97/59mm Hg (04/01/24 12:05 PM) 112/57mm Hg (04/01/24 7:25 AM) 151/83mm Hg *H* (03/31/24 7:57 PM) Respiratory Rate [16-30 br/min] 20 br/min (04/01/24 12:05 PM) 17 br/min (04/01/24 8:52 AM) 17 br/min (04/01/24 7:52 AM) Temperature [96.8-100.4 DegF] 97.5 DegF (04/01/24 12:05 PM) 97.5 DegF (04/01/24 7:25 AM) 97.4 DegF (03/31/24 7:57 PM) Mode of Delivery (Oxygen) Room air (04/01/24 12:05 PM) Room air (04/01/24 7:25 AM) Room air (03/31/24 7:57 PM) Blood pressure sites Arm, right (04/01/24 12:05 PM) Arm, right (04/01/24 7:25 AM) Arm, right (03/31/24 7:57 PM) Temperature Route Oral (04/01/24 12:05 PM) Oral (04/01/24 7:25 AM) Oral (03/31/24 7:57 PM) Social History Social History Type Response Smoking Status Never (less than 100 in lifetime) entered on: 08/20/22 Sex History and physical note * Jordan Chatterjee MD: PERFORM, MODIFY Event Display: History and Physical Hospital Authored Date: Patient: ??LIZETH ROLLINS ? Age:??79 Years?Sex:??Female?:??1945?? Chief Complaint/Reason for Consultation AMS History of Present Illness 79-year-old female with a past medical history of dementia, Schizoaffective disorder, hypothyroidism, hyperlipidemia who was discharged from the hospital today after having treatment of agitation.?? Global Marketing Manager consultation was called.?? Her medication had been optimized and her agitation got better.?? She was treated with antibiotic for UTI that had been discontinued after urine culture was negative.?? Echocardiogram showed eft ventricular ejection fraction 40 to 45% with grade 1 diastolic dysfunction.?? Dyskinesia of the inferolateral wall.? Today she came back with complaint of altered mental status with agitation with worsening of delirium.?? Unfortunately I was unable to get any information from the patient because she got 2 doses of Zyprexa 7.5 mg and was sleepy during my examination.?? I was unable to contact with any family friend/members.?? So information is obtained from the previous note in the [facility] and also from ED physician.?? As per the information she was very aggressive and she tried to leave the house and was not redirectable.? In the ED she was very agitated and required 2 doses of 7.5 mg IM Zyprexa with improvement of her agitation.?? She also required Ines vest.?? Lab workup showed jump in creatinine.?? Otherwise labworkup was nondiagnostic with normal CBC and normal UA. Review of Systems I was unable to get a review of systems from the patient. Objective Vital Signs?? Temperature: 97.7 DegF (03/21/24 21:50:00) Temperature Route: Oral (03/21/24 21:50:00) Pulse Rate: 66 bpm (03/21/24 23:24:00) Respiratory Rate: 16 br/min (03/21/24 23:24:00) Systolic Blood Pressure: 95 mm Hg (03/21/24 23:24:00) Diastolic Blood Pressure:??51 mm Hg??Low (03/21/24 23:24:00) Blood pressure sites: Arm, right (03/21/24 08:15:00) Mean Arterial Pressure: 87 mm Hg (03/21/24 08:15:00) Pulse Pressure: 44 mm Hg (03/21/24 23:24:00) Oxygen Saturation: 97 % (03/21/24 23:24:00) Mode of Delivery (Oxygen): Room air (03/21/24 23:24:00) Early Warning Score: 3 (03/22/24 00:17:05) ? Physical Exam General Appearance: She was sleepy during my examination. Skin: No rash.?? Warm, dry, pink, no pallor, intact. Eye:?? Normal conjunctiva. HEENT: No JVP.?? Moist mucous membrane. Heart:?? S1, S2.? Respiratory:?? Clear to auscultation, no rhonchi, no wheezing, no crackles. GI:?? Abdomen is soft, nontender, nondistended.?? Bowel sounds are positive.?? No organomegaly Neurologic: Unable to do the neuro examination because of lack of cooperation from the patient. Extremities:?? No calf tenderness, no clubbing, no edema. Psychiatric: Unable to evaluate. Musculoskeletal: Moving all extremities. Assessment/Plan 79-year-old female with a past medical history of dementia, Schizoaffective disorder, hypothyroidism, hyperlipidemia who was discharged from the hospital today after having treatment of agitation nowreadmitted again with altered mental status/delirium. ?? Delirium (R41.0):??-?? Schizotypal disorder (F21):??-?? Altered mental state (R41.82):??-?? Dementia (F03.90):??- Etiology of delirium? ??Unlikely any active infectious etiology. ??It could be due to [place].?? Will get a regional business manager consultation in the morning time. Will continue with the gabapentin,??Seroquel,??trazodone.?? Will continue scheduled Seroquel 25 mg at nighttime and 12.5 mg 3 times a day??as needed.?? She started on gabapentin 400 mg at nighttime and 200 mg 2 times a day.?? Will get a EKG for QTc interval documentation.?? If she will unable to soheila e??p.o.??will consider??olanzapine??IM versus IV Haldol. We will??have delirium precaution.?? Avoid anticholinergics, benzodiazepines, and opiates. Avoid restraints. Family at bedside as much as possible. Frequent reorientation. Constant conduit helper as needed . OOB to chair for meals, ?? maintain hydration. Close monitoring for constipation and urinary retention. Room bright during day, and dim at night. Uninterrupted sleep at night. Ambulate with assistance as possible .?? Will hold Paxil because of??drug interaction without medication. ?? Acute kidney injury (N17.9):??- Will get a CPK level. ??Will continue with the bladder scan??to rule out any??obstruction/retentionof urine.?? Will continue with gentle hydration. ?? HLD (hyperlipidemia) (E78.5):??- Will continue with the pravastatin. ?? Hypothyroidism ??(E03.9) Continue levothyroxine . ?? VTE Prophylaxis:??- ?VTE Prophylaxis Assessment:??VTE Prophylaxis Ordered Will continue with the Lovenox. ?? Discharge Planning:??- Depending upon the condition if needed will need to transfer to the dementia unit. ?? Ongoing Medical Necessity:??- Ongoing treatment of delirium. Code Status:??- ?Order Code Status:??Code Status Ordered Unable to contact with any family member/friend. ??Will give her??full code. Disclaimer: ??This note ??was accomplished with use of [employer] voice recognition software, which is prone to medical and other word misidentifications and grammatical errors. ??The physician does strive to identify and correct these, but some could still be present. ??Please do not hesitate to contact the physician for clarifications. ??I will continue to take care of this patient till 7 AM of theadmitting date. ?? Histories Allergies Allergies ?(Active and Proposed Allergies Only) NKA? (Severity: Unknown severity, Onset: Unknown) ? Past Medical History/Problem List Active Problems(6) COVID-19 Dementia HLD (hyperlipidemia) Hypothyroidism Osteoporosis Schizotypal disorder ? Past Surgical History Unable to obtain. ? Social History Alcohol Details:??Use: Current. ??Frequency: 1-2 times per week. Substance Abuse Details:??Use: Never. Tobacco Details:??Use: Never (less than 100 in lifetime). ? Family History I was unable to obtain the family history from the patient. ? Medications Home Medications Alendronate (alendronate 70 mg oral tablet)?1?tab(s)?70?Milligram?By Mouth?Every week Cholecalciferol (Vitamin D3 50 mcg (2000 intl units) oral tablet, chewable)?0.5?tab(s)?25?Microgram?By Mouth?Daily Donepezil (donepezil 5 mg oral tablet)?5?Milligram?1?tablet?By Mouth?Daily at bedtime Gabapentin?400?Milligram?By Mouth?Daily at bedtime Gabapentin (gabapentin 100 mg oral capsule)?See Instructions?Please take 200 mg By Mouth Daily in AM and 200 mg daily at 1 PM Levothyroxine (levothyroxine 25 mcg (0.025 mg) oral capsule)?1?capsule?25?Microgram?By Mouth?Daily Paroxetine?30?Milligram?By Mouth?Daily Pravastatin?20?Milligram?By Mouth?Daily Quetiapine (SEROquel 25 mg oral tablet)?25?Milligram?By Mouth?Daily at bedtime ? Results Recent Labs BLOOD COUNT & DIFF WBC 8.0 k/mm3 ()?? 03/21/2024 22:27 RBC 4.78 m/mm3 ()?? 03/21/2024 22:27 Hgb 13.9 Gm/dL ()?? 03/21/2024 22:27 Hct 43.5 % ()?? 03/21/2024 22:27 MCV 91.0 femtoliters ()?? 03/21/2024 22:27 MCH 29.1 pg ()?? 03/21/2024 22:27 MCHC 32.0 g/dL (Low)?? 03/21/2024 22:27 Platelet Count 251 k/mm3 ()?? 03/21/2024 22:27 RDW-SD 49.1 femtoliters (High)?? 03/21/2024 22:27 MPV 9.9 femtoliters ()?? 03/21/2024 22:27 Nucleated RBC (Automated) 0.0 #/100 WBC'S ()?? 03/21/2024 22:27 Abs. NRBC 0.0 k/mm3 ()?? 03/21/2024 22:27 Abs. Neut 6.1 k/mm3 ()?? 03/21/2024 22:27 Abs. Lymph 1.2 k/mm3 ()?? 03/21/2024 22:27 Abs. [place] 0.6 k/mm3 ()?? 03/21/2024 22:27 Abs. Eo 0.1 k/mm3 ()?? 03/21/2024 22:27 Abs. Baso 0.0 k/mm3 ()?? 03/21/2024 22:27 Neut % 76.3 % (High)?? 03/21/2024 22:27 Lymph % 14.6 % (Low)?? 03/21/2024 22:27 [place] % 7.2 % ()?? 03/21/2024 22:27 Eos % 1.0 % ()?? 03/21/2024 22:27 Baso % 0.5 % ()?? 03/21/2024 22:27 Imm Gran 0.4 % ()?? 03/21/2024 22:27 Abs. Imm Gran 0.0 k/mm3 ()?? 03/21/2024 22:27 ?? CHEM GENERAL Sodium 139 mmol/L ()?? 03/21/2024 22:27 Potassium 4.9 mmol/L ()?? 03/21/2024 22:27 Chloride 104 mmol/L ()?? 03/21/2024 22:27 Bicarbonate Level 24 mmol/L ()?? 03/21/2024 22:27 Anion Gap 11 ()?? 03/21/2024 22:27 Glucose Level 95 mg/dL ()?? 03/21/2024 22:27 BUN 19 mg/dL ()?? 03/21/2024 22:27 Creatinine-Blood 1.24 mg/dL (High)?? 03/21/2024 22:27 Estimated GFR Creatinine 44 ML/MIN/1.73 M2 ()?? 03/21/2024 22:27 Calcium 9.1 mg/dL ()?? 03/21/2024 22:27 ?? UA/URINALYSIS Appear/Color, Urine LIGHT YELLOW ()?? 03/21/2024 22:28 Specific [place], Urine 1.011 ()?? 03/21/2024 22:28 pH, Urine 6.0 ()?? 03/21/2024 22:28 Albumin, Urine NEGATIVE ()?? 03/21/2024 22:28 Glucose, Urine NEGATIVE ()?? 03/21/2024 22:28 Ketones, Urine NEGATIVE ()?? 03/21/2024 22:28 Bilirubin, Urine NEGATIVE ()?? 03/21/2024 22:28 Hemoglobin, Urine NEGATIVE ()?? 03/21/2024 22:28 Nitrite, Urine NEGATIVE ()?? 03/21/2024 22:28 Leukocyte, Urine NEGATIVE ()?? 03/21/2024 22:28 Urobilinogen NORMAL mg/dL ()?? 03/21/2024 22:28 WBC's, Urine NONE SEEN /HPF ()?? 03/21/2024 22:28 RBC's, Urine NONE SEEN /HPF ()?? 03/21/2024 22:28 Hold Urine Culture Testing available 48 hours from time of collection. ()?? 03/21/2024 22:28 ? EKG study * Event Display: ECG 12-Lead Authored Date: Please click on pdf link to open report * Event Display: ECG 12-Lead Authored Date: Ventricular Rate: 54 BPM Atrial Rate: 54 BPM P-R Interval: 216 ms QRS Duration: 80 ms Q-T Interval: 456 ms QTC Calculation(Bazett): 432 ms P [place]: 82 degrees R [place]: 29 degrees T [place]: 113 degrees Sinus bradycardia with 1st degree A-V block T wave abnormality, consider anterior ischemia Abnormal ECG When compared with ECG of 12-MAR-2024 21:40, MA interval has increased Vent. rate has decreased BY 29 BPM T wave inversion now evident in Anterior leads Confirmed by JOSEPH CHAVEZ ([id number]) on 03/22/2024 10:07:42 AM [place]: JOSEPH CHAVEZ [facility] Progress note * Ely Lopez RN: PERFORM, SIGN, VERIFY Event Display: Progress Note Hospital Authored Date: Patient: LIZETH ROLLINS Age: 79 years Sex: Female : 1945 Associated Diagnoses: None Author: Ely Lopez RN Patient A & Ox1, with a constant conduit helper currently. Denying pain, nausea or vomiting. Tolerating diet and medications po, with good appetite. +BS, nontender, round, soft abdomen. Mixed incontinent and continent episodes. No voiding issues noted. Bladder scan completed no retention noted. Skinintact, +pulses, no BLE edema, dry, warm to touch with color matching ethnicity . 1 assist for ambulation in room , steady gait and able to change position in bed. On a therapeutic bed. On room air no s/s of hypoxia, such as cyanosis, or SOB. Education agronomy teacher lopez and fall precautions given. Bed lowest locked position, with call lopez, engine house helper socks and bed alarm on. Will continue hourly rounding. See [facility]IS for further information. Patient being discharge by MD today home with care aid Bri. Findings Problem Related to Alteration in Comfort : Alteration in Comfort/new 03/31/2024 23:00 EDT Alteration in Comfort Related to Disease process Goals & Outcomes: Comfort Pt will report acceptable level of comfort & pain control, Pt will state importance of adhering to pain strategy regime, Pt will demonstrate necessary skills to manage pain, Non-verbal indicators will indicate comfort/pain control, Resolved problem, Goals/Outcomes met Interventions Implemented: Comfort Assess pain using appropriate pain scale/tools, Assess aggravating factors & prevent them accordingly, Assess alleviating factors & promote them accordingly Goals/Interventions, Comfort Yes Comfort, Problem Start 03/28/2024 6:08 Reviewed plan with, Comfort Patient Patient Progression, Comfort Pt progressing according to plan Comfort, Problem Ongoing Yes . Alteration in Safety : Alteration in Safety/new 04/01/2024 11:17 EDT Alteration in Safety Related to Other: AMS, Fall precautions Goals & Outcomes, Safety Pt will remain safe & injury free Interventions, Safety Provide teaching as needed Goals/Interventions, Safety Yes Safety, Problem Start 04/01/2024 11:17 Reviewed plan with, Safety Patient Patient Progression, Safety Pt progressing according to plan . Falls Risk Assessment : Falls Data 04/01/2024 8:03 EDT Fall Elimination Incontinent Plan: Fall Elimination Collaborate with MD for management of altered elimination Fall Agitation/Anxiety/Depression No impairment Fall Related Sign/Symptom/Condition None Fall Cognitive Limitations Confused, Disoriented to time, place, or person, Experiences Short term Memory Loss, Impulsivity Plan: Fall Cognitive Limitations [place] patient to time, place or person, Use environmental clues to reinforce orientation & safety, Monitor cognitive status regularly, Inform MD of patient's altered cognitive status, Collaborate with MD to manage altered cognitive status, Maintain consistent caregivers as where possible, Discuss patient's altered cognitive status with family, Enlist family members to stay with the patient, Consider constant conduit helper or intermittent observer, Activate bed exit alarm system Fall Sensory and Physical Function Requires Staff Assistance with Transfer Plan: Fall Sensory and Physical Function Encourage safe activities to maintain strength & mobility, Ask family to encourage safe activities, Monitor patient's progress with physical activities, Educate patient how to use mobility aids safely, Educate the family how to use mobility aids safely, Place mobility aids near bedside, Ensure patient has & wears eyeglasses/hearing aids, Collaborate with MD to refer to physical therapy, Collaborate with Physical Therapy for balance/gait training,Collaborate with MD to refer to occupational therapy Fall High Risk for Injury Age>80, On Coumadin, IV Heparin, or Lovenox Total Falls Risk Score 27 Fall Risk Level High Risk Falls Prevention Plan for High Risk Fall risk decal outside of patient's room, Fall motion picture camera operator patient's chart, Apply yellow high fall risk wrist band to wrist, Ensure patient has yellow non-skid slippers, Supervise patient in the bathroom & shower, Consider relocating patient closer to nurses'station, Activate bed exit alarm system, Evaluate footwear & ensure patient has non-skid slippers, Activate alternate alarm: bed (i.e. TABS), Activate alternate alarm: chair (i.e. TABS, [place]), Bed in lowest locked position, Provide patient/family falls prevention education, Place personal care items & call lopez within reach, Instruct patient/family to request assistance with ambulatio, Instruct patient/family not to get up without assistance, Supervise the patient when ambulating or making transfers, Check that needs are met to minimize attempts to get up, Hourly rounds, Ensure safe& uncluttered environment, Communicate falls risk to all providers . Discharge Information Case Management Discharge Plan : Case Management Discharge Plan Data 04/01/2024 10:07 EDT Discharge Level of Care at Discharge Homehealth/VNA Discharge VNA/Hospice/Home Care Clusterize Discharge Transportation Arranged Bri (Caregiver) Name of Agency #1 [facility] Categories #1 Occupational Therapy, Physical Therapy, [facility] Comments #1 [phone] [employer] will provide Skilled nurse, Physical Therapy andoccupational therapy. Someone should be calling you in 1-2 days after discharge. Name of Person Notified of Transfer Patient and Bri Rehabilitation Discharge : Rehab Discharge Index 03/28/2024 10:14 EDT Comments on treatment indicated 79 y/o F adm with AMS / delerium. PT 2-3 sessions to insure safety with amb. Rec home with services. Distance pt will ambulate 150' without AD Full chart review completed Yes Plan of care PT Gait training, Transfer training, Therapeutic exercise, Functional Activities, Balance training, Neuromuscular education * Shaina Patel LPN: PERFORM, SIGN, VERIFY Event Display: Progress Note Hospital Authored Date: Patient: LIZETH ROLLINS Age: 79 years Sex: Female : 1945 Associated Diagnoses: None Author: Shaina Patel LPN Findings Problem Related to Alteration in Comfort : Alteration in Comfort/new 03/31/2024 23:00 EDT Alteration in Comfort Related to Disease process Goals & Outcomes: Comfort Pt will report acceptable level of comfort & pain control, Pt will state importance of adhering to pain strategy regime, Pt will demonstrate necessary skills to manage pain, Non-verbal indicators will indicate comfort/pain control, Resolved problem, Goals/Outcomes met Interventions Implemented: Comfort Assess pain using appropriate pain scale/tools, Assess aggravating factors & prevent them accordingly, Assess alleviating factors & promote them accordingly Goals/Interventions, Comfort Yes Comfort, Problem Start 03/28/2024 6:08 Reviewed plan with, Comfort Patient Patient Progression, Comfort Pt progressing according to plan Comfort, Problem Ongoing Yes . Narrative/Incidental Patient is A & o x 1. LSCTA. Denied pain. Had a shower this shift. Ambulated with PCT this shift. Medications administered per NOV. Pt tolerated. Bowel sounds present. One assist to the bathroom for void. Pedal pulses positive. Updated Bri (HCP), on pt's overnight activities. Bed alarm is engaged. Bed in lowest, and locked position. Call lopez within her reach. Hourly safety rounding maintained. . * Shay Dumont RN: SIGN, PERFORM, VERIFY Event Display: Progress Note Hospital Authored Date: [id number] Patient: LIZETH ROLLINS Age: 79 years Sex: Female : 1945 Associated Diagnoses: None Author: Shay Dumont RN Findings Problem Related to Alteration in Comfort : Alteration in Comfort/new 03/31/2024 18:00 EDT Alteration in Comfort Related to Disease process Goals & Outcomes: Comfort Pt will report acceptable level of comfort & pain control, Pt will state importance of adhering to pain strategy regime, Pt will demonstrate necessary skills to manage pain, Non-verbal indicators will indicate comfort/pain control, Resolved problem, Goals/Outcomes met Interventions Implemented: Comfort Assess pain using appropriate pain scale/tools, Assess aggravating factors & prevent them accordingly, Assess alleviating factors & promote them accordingly Goals/Interventions, Comfort Yes Comfort, Problem Start 03/28/2024 6:08 Reviewed plan with, Comfort Patient Patient Progression, Comfort Pt progressing according to plan Comfort, Problem Ongoing Yes . Evaluation Patient alert oriented X1. Denies pain, N/V/D. LS clear on RA. Ambulates with one assist tot he bathroom. PT impulsive needs constant reminder, redirectable\. Skin intact. +BS in all quadrants. +PP. +CMS. No iv access . Patient in room bed locked and in lowest position call lopez within reach hourlyrounds maintained. . . Discharge Information Rehabilitation Discharge : Rehab Discharge Index 03/28/2024 10:14 EDT Comments on treatment indicated 79 y/o F adm with AMS / delerium. PT 2-3 sessions to insure safety with amb. Rec home with services. Distance pt will ambulate 150' without AD Full chart review completed Yes Plan of care PT Gait training, Transfer training, Therapeutic exercise, Functional Activities, Balance training, Neuromuscular education Consult note * Rosario Mar MD: PERFORM Event Display: Consultation Note Authored Date: Patient: ??LIZETH ROLLINS ? Age:??79 Years?Sex:??Female?:??1945?? 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 She was treated with antibiotic for UTI that had been discontinued after urine culture was negative.?? Echocardiogram showed eft ventricular ejection fraction 40 to 45% with grade 1 diastolic dysfunction.?? Dyskinesia of the inferolateral wall.?Patientreturned home but continued to have altered mental status and agitation, so returned here. She is not able to provide history, collateral obtained from wire weaver cloth Bri. Bri reports that patient returned home from the hospital and initially was doing well, behaving appropriately. After a few hours, patient became more agitated and was demanding to go to her house, where the patient has not lived in over 20 years. She became more physically aggressive and persistently tried to leave the house, was not redirectable, so Bri called EMS.? Pt this afternoon found in bed, restless. Screaming her name, the name other cousin who she reports is a chief of the Police [employer] and that she wants to go home. Fairly hard to redirect. Reports she lives alone, has her own home and does not know who Bri is. She believes she has been arrested and calls this freelance copywriter a liar when told she is in the hospital. Pt denies pain, reports no medical issues. Pt does not engage in much more conversation. ?? Unable to obtain previous psychiatric hx. ?? Discharge Medications Alendronate (alendronate 70 mg oral tablet)?1?tab(s)?70?Milligram?By Mouth?Every week Cholecalciferol (Vitamin D3 50 mcg (2000 intl units) oral tablet, chewable)?0.5?tab(s)?25?Microgram?By Mouth?Daily Donepezil (donepezil 5 mg oral tablet)?5?Milligram?1?tablet?By Mouth?Daily at bedtime Gabapentin?400?Milligram?By Mouth?Daily at bedtime Gabapentin (gabapentin 100 mg oral capsule)?See Instructions?Please take 200 mg By Mouth Daily in AM and 200 mg daily at 1 PM Levothyroxine (levothyroxine 25 mcg (0.025 mg) oral capsule)?1?capsule?25?Microgram?By Mouth?Daily Paroxetine?30?Milligram?By Mouth?Daily Pravastatin?20?Milligram?By Mouth?Daily Quetiapine (SEROquel 25 mg oral tablet)?25?Milligram?By Mouth?Daily at bedtime ? Review of Systems unable to obtain Objective Vital Signs?? Temperature: 97.7 DegF (03/22/24 13:47:00) Temperature Route: Oral (03/22/24 13:47:00) Pulse Rate: 58 bpm (03/22/24 13:47:00) Respiratory Rate: 18 br/min (03/22/24 13:47:00) Systolic Blood Pressure: 129 mm Hg (03/22/24 13:47:00) Diastolic Blood Pressure: 69 mm Hg (03/22/24 13:47:00) Blood pressure sites: Arm, left (03/22/24 13:47:00) Mean Arterial Pressure: 89 mm Hg (03/22/24 13:47:00) Pulse Pressure: 60 mm Hg (03/22/24 13:47:00) Oxygen Saturation: 98 % (03/22/24 13:47:00) Mode of Delivery (Oxygen): Room air (03/22/24 13:47:00) Early Warning Score: 2 (03/22/24 13:47:22) ? Physical Exam ?? Mental Status Exam: Appearance: female in [place], screaming Attitude: uncooperative. ? Motor activity:??restless? Mood: angry . ? Affect: appropriate. ? Speech: fluent, unimpaired. ? Perception:??Believes she is at the police station? Orientation: poor. ? Memory: poor. ? Judgment: poor. ? Insight: poor. ? Thought process:??focused on discharge, her name and her cousin?? Reliability: poor. ? Suicidality/self-destructive behavior: none. ? Homicidality/violence: none. ? Group Detail Date Value w/Units Flags Normal Range Normal Reference Text Comment Ind UA/URINALYSIS Appear/Color, Urine 03/21/2024 22:28:00 EDT LIGHT YELLOW? Y UA/URINALYSIS Specific [place], Urine 03/21/2024 22:28:00 EDT 1.011? 1.002-1.030 ? UA/URINALYSIS pH, Urine 03/21/2024 22:28:00 EDT 6.0? 5.0-8.0 ? UA/URINALYSIS Albumin, Urine 03/21/2024 22:28:00 EDT NEGATIVE? UA/URINALYSIS Glucose, Urine 03/21/2024 22:28:00 EDT NEGATIVE? UA/URINALYSIS Ketones, Urine 03/21/2024 22:28:00 EDT NEGATIVE? UA/URINALYSIS Bilirubin, Urine 03/21/2024 22:28:00 EDT NEGATIVE? UA/URINALYSIS Hemoglobin, Urine 03/21/2024 22:28:00 EDT NEGATIVE? UA/URINALYSIS Nitrite, Urine 03/21/2024 22:28:00 EDT NEGATIVE? UA/URINALYSIS Leukocyte, Urine 03/21/2024 22:28:00 EDT NEGATIVE? UA/URINALYSIS Urobilinogen 03/21/2024 22:28:00 EDT NORMAL mg/dL ? UA/URINALYSIS WBC's, Urine 03/21/2024 22:28:00 EDT NONE SEEN /HPF ?? 0-5 ? UA/URINALYSIS RBC's, Urine 03/21/2024 22:28:00 EDT NONE SEEN /HPF ?? 0-3 ? UA/URINALYSIS Hold Urine Culture 03/21/2024 22:28:00 EDT Testing available 48 hours from time of collection.? BLOOD COUNT & DIFF WBC 03/21/2024 22:27:00 EDT 8.0 k/mm3 ?? 4.0-11.0 ? BLOOD COUNT & DIFF RBC 03/21/2024 22:27:00 EDT 4.78 m/mm3 ?? 4.20-5.40 ? BLOOD COUNT & DIFF Hgb 03/21/2024 22:27:00 EDT 13.9 Gm/dL ?? 11.7-15.5 ? BLOOD COUNT & DIFF Hct 03/21/2024 22:27:00 EDT 43.5 % ?? 35.7-45.8 ? CHEM GENERAL Sodium 03/21/2024 22:27:00 EDT 139 mmol/L ?? 133-145 ? CHEM GENERAL Potassium 03/21/2024 22:27:00 EDT 4.9 mmol/L ?? 3.6-5.2 ? CHEM GENERAL Chloride 03/21/2024 22:27:00 EDT 104 mmol/L ?? 98-107 ? CHEM GENERAL Bicarbonate Level 03/21/2024 22:27:00 EDT 24 mmol/L ?? 22-29 ? CHEM GENERAL Anion Gap 03/21/2024 22:27:00 EDT 11? 4-17 ? CHEM GENERAL Glucose Level 03/21/2024 22:27:00 EDT 95 mg/dL ?? 70-99 ? CHEM GENERAL BUN 03/21/2024 22:27:00 EDT 19 mg/dL ?? 8-23 ? CHEM GENERAL Creatinine-Blood 03/21/2024 22:27:00 EDT 1.24 mg/dL H 0.5-1.0 ? CHEM GENERAL Estimated GFR Creatinine 03/21/2024 22:27:00 EDT 44 ML/MIN/1.73 M2 ? Y CHEM GENERAL Calcium 03/21/2024 22:27:00 EDT 9.1 mg/dL ?? 8.6-10.5 ? * Final Report * ?? [id number] Ventricular Rate: 54 ??BPM Atrial Rate: 54 ??BPM P-R Interval: 216 ??ms QRS Duration: 80 ??ms Q-T Interval: 456 ??ms QTC Calculation(Bazett): 432 ??ms P [place]: 82 ??degrees R [place]: 29 ??degrees T [place]: 113 ??degrees Sinus bradycardia with 1st degree A-V block T wave abnormality, consider anterior ischemia Abnormal ECG ?? 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 Pt this afternoon continues to present fairly confused and agitated. Unable to engage in any meaningful conversation other than demanding discharge. She reports she lives alone, does not have any medical issues and does not take medications. At this time Pt does not appear to have capacity to make medical decisions at this time. ?? Given ongoing agitation, recommend to start Depakote 250mg BID for now. Can increase Seroquel to25mg in the am and 50mg qhs.? DSM V Diagnoses: Delirium, multifactorial Dementia, Mild per history Schizotypal personality disorder per history? Recommendations: ??-start Depakote 250mg BID -Increase Seroquel to 25mg in the am, 50mg qhs -for agitation haldol 5mg TID prn PO/IV/IM -Pt does not have capacity to make medical decisions at this time ? Histories Allergies Allergies ?(Active and Proposed Allergies Only) NKA? (Severity: Unknown severity, Onset: Unknown) ? Past Medical History/Problem List Active Problems(6) COVID-19 Dementia HLD (hyperlipidemia) Hypothyroidism Osteoporosis Schizotypal disorder ? Past Surgical History No surgery history documented. ? Social History Alcohol Details:??Use: Current. ??Frequency: 1-2 times per week. Substance Abuse Details:??Use: Never. Tobacco Details:??Use: Never (less than 100 in lifetime). ? Psychosocial History ?Per Bri the??patient's caregiver and that Lizeth lives in her home (two [place] home) along with Bri's family (multiple adult children and teenager).?? Lizeth previously lived next-door to the familybut was evicted from her home many years ago and that Bri inherited Lizeth and now cares for her and serves as her WRAPPER AND PRESERVER.?? Bri reports that she has conservatorship for Lizeth's finances but that there is no legal guardianship in place.?Lizeth has been living with her?? since 2013.?? There are nofamily members??in her life and her mother reportedly when she was young ? Family History No Family History documented. ? Medications Home Medications Alendronate (alendronate 70 mg oral tablet)?1?tab(s)?70?Milligram?By Mouth?Every week Cholecalciferol (Vitamin D3 50 mcg (2000 intl units) oral tablet, chewable)?0.5?tab(s)?25?Microgram?By Mouth?Daily Donepezil (donepezil 5 mg oral tablet)?5?Milligram?1?tablet?By Mouth?Daily at bedtime Gabapentin?400?Milligram?By Mouth?Daily at bedtime Gabapentin (gabapentin 100 mg oral capsule)?See Instructions?Please take 200 mg By Mouth Daily in AM and 200 mg daily at 1 PM Levothyroxine (levothyroxine 25 mcg (0.025 mg) oral capsule)?1?capsule?25?Microgram?By Mouth?Daily Paroxetine?30?Milligram?By Mouth?Daily Pravastatin?20?Milligram?By Mouth?Daily Quetiapine (SEROquel 25 mg oral tablet)?25?Milligram?By Mouth?Daily at bedtime ? Inpatient Medications Medications (17) Active SCHEDULED: (9) Donepezil 5 mg Tablet (donepezil 5 mg oral tablet) ??5 mg, By Mouth, Daily at bedtime Enoxaparin 30 mg Inj (Enoxaparin Inj) ??30 mg 0.3 mL, Subcutaneous Injection, Daily Gabapentin 100 mg Capsule (gabapentin 100 mg oral capsule) ??200 mg, By Mouth, 2 times a day Gabapentin 400 mg Capsule (Neurontin 400 mg oral capsule) ??400 mg, By Mouth, Daily at bedtime Levothyroxine 25 mcg Tablet (levothyroxine 0.025 mg oral tablet) ??25 mcg, By Mouth, Daily NaCl 0.9% Flush 3ml (NaCL 0.9% Flush) ??3 mL, IV Push, Every 8 hours Pravastatin 20 mg Tablet (pravastatin 20 mg oral tablet) ??20 mg, By Mouth, Daily Quetiapine 25 mg Tablet (SEROquel 25 mg oral tablet) ??25 mg, By Mouth, Daily at bedtime Vitamin D 1000 IU Tablet (Vitamin D3 2000 intl units oral tablet) ??1,000 International_Units, By Mouth, Daily CONTINUOUS: (1) NaCL 0.9% (1000 mL) Cont IV 1,000 mL (0.9% NaCL 1,000 mL) ??1,000 mL, IV Infusion, 100 mL/hr PRN: (7) Docusate Sodium 100 mg Capsule (Docusate Sodium Capsule) ??100 mg 1 capsule, By Mouth, 2 times a day Melatonin 3 mg Tablet (Melatonin Tablet) ??3 mg, By Mouth, Daily at bedtime NaCl 0.9% Flush 3ml (NaCL 0.9% Flush) ??3 mL, IV Push, Every 8 hours Polyethylene Glycol 17 Gm Powder (MiraLax Powder) ??17 Gm 1 pack/packet, By Mouth, Daily Quetiapine 25 mg Tablet (SEROquel 25 mg oral tablet) ??12.5 mg, By Mouth, 3 times a day Simethicone 80 mg Chewable Tablet (Simethicone Tablet) ??80 mg, Chew, 3 times a day Trazodone 50 mg Tablet (traZODone 50 mg oral tablet) ??50 mg, By Mouth, Daily at bedtime ? Results ? Blood Glucose Trend Glucose Level: 95 mg/dL (03/21/24 22:27:00) Glucose, POC:??110 mg/dL??High (03/22/24 11:56:00) ? CBC, CBC w/Diff?? CBC?? Differential?? WBC: 8 k/mm3 (22:27) Abs. Neut: 6.1 k/mm3 (22:27) RBC: 4.78 m/mm3 (22:27) Abs. Lymph: 1.2 k/mm3 (22:27) Hct: 43.5 % (22:27) Abs. [place]: 0.6 k/mm3 (22:27) RDW-SD:??49.1 femtoliters??High (22:27) Abs. Eo: 0.1 k/mm3 (22:27) Nucleated RBC (Automated): 0 #/100 WBC'S (22:27) Abs. Baso: 0 k/mm3 (22:27) Abs. NRBC: 0 k/mm3 (22:27) Neut %:??76.3 %??High (22:27) ?? Lymph %:??14.6 %??Low (22:27) ?? [place] %: 7.2 % (22:27) ?? Eos %: 1 % (22:27) ?? Baso %: 0.5 % (22:27) ?? Imm Gran: 0.4 % (22:27) ?? Abs. Imm Gran: 0 k/mm3 (22:27) ? LFT?? No qualifying data available. ?? Urinalysis Albumin, Urine: NEGATIVE (22:28) Appear/Color, Urine: LIGHT YELLOW (22:28) Bilirubin, Urine: NEGATIVE (22:28) Glucose, Urine: NEGATIVE (22:28) Hemoglobin, Urine: NEGATIVE (22:28) Hold Urine Culture: Testing available 48 hours from time of collection. (22:28) Ketones, Urine: NEGATIVE (22:28) Leukocyte, Urine: NEGATIVE (22:28) Nitrite, Urine: NEGATIVE (22:28) pH, Urine: 6 (22:28) RBC's, Urine: NONE SEEN (22:28) Specific [place], Urine: 1.011 (22:28) Urobilinogen: NORMAL (22:28) WBC's, Urine: NONE SEEN (22:28) ? * Leslie Camarena: PERFORM, MODIFY Event Display: Consultation Note Authored Date: Patient: ??LIZETH ROLLINS ? Age:??79 Years?Sex:??Female?:??1945?? Chief Complaint AMS History of Present Illness Reason for consult:?Delirium ?? Referring physician:?? Dr. Chatterjee ?? Source of Information/reliability:?? Chart, staff ?? History of Present Illness:?? 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 She had multiple presentations to the hospital (03/09/24, 03/10/24, 03/12/24) due to changes in baseline behavior (agitation, paranoia, wandering from home, refusing to take medications).?? She had been seen by Psychiatry on multiple occasions during prior hospital presentations (03/12/24, 03/14/24, 03/19/24).?? They noted she has baseline??schizotypal??personality disorder??superimposed on mild dementia with??concern for primary delirium due to UTI.?? They??recommended her baseline medications be resumed?? And gave recommendations for??agitation management??(Vistaril 50 mg p.o. every 6 hours as needed anxiety, trazodone 50 mg p.o. daily at bedtime as needed insomnia,??Seroquel 50 mg p.o. every 4 hours as needed agitation and or Zyprexa 5 mg??and Benadryl??50 mg p.o.??IM every 6 hours as needed agitation depending on the severity of symptoms).?Due to the persistent??use of as needed medications??and the fact that the patient was aggressive agitated and required restraints while on the unit, adjustments were made in the patient's standing dose??of gabapentin??which was increased to??400 mg in the a.m. with the addition of??200 mg twice daily.?? Quetiapine 25 mg??was also added to the scheduled regimen. ??Over course??her??paranoia and agitation??improved??as did medication compliance.?? She continued to voice her desire to leave however. ??After??discussion with??Bri??(her live-in wire weaver cloth and conservator)?? We elected to discharge her home??after setting up??a referral??to outpatient psychiatry and putting in place several home supports ([facility] referral??and??community navigator.?Unfortunately, it appears that??after returning??home with Bri (which is her home),??she again??attempted to leave the house??and demanded to??return to a home that she had not lived in over 20 years.?? Became physically aggressive again and was not redirectable and unfortunately returned to the ED.?? In the ED she was agitated, restless and required IM olanzapine x2 ( 5mg each) and was placed in Ines vest.?Notes also mention that she slumped to the ground after getting up from stretcher.?? No reported injury.?? Creatinine was elevated at1.2??and she was started on IV fluids. ??Her gabapentin dose was held due to bump in creatinine. ??I spoke with her nurse??who states that with any??interaction she becomes agitated. ??She has becomeresistive to??oral intake and was??throwing??food on the floor.?? Demanding to go home. ?? Lizeth ambulates independently at baseline with no device.?? She needs some assistance with ADLs forcompleteness and Bri assists with this.?She follows with Dr. Mitali Blanton and apparently onlygoes once per year.?? She is not following with any Psychiatric provider.?? She used to go to an Adult Day program but this closed during Covid.?? She does not have any other formal services in placeper Bri.?? Apparently, she was diagnosed??with??mild dementia in the office about two years ago based on PCP evaluation??(patient had become mildly forgetful)??but per Bri had not undergone any extensive testing.?? Had been started on low dose donepezil and has remained on this dose.?I spoke with her listed personal injury litigation paralegal??TRICIA ARIAS (Bri) who provided collateral history.?Bri reports she is the patient's caregiver and that Lizeth lives in her home (two story home) along with Bri's family (multiple adult children and teenager).?? Lizeth previously lived next-door to the family but was evicted from her home many years ago and that Bri inherited Lizeth and now cares for her and serves as her WRAPPER AND PRESERVER.?? Bri reports that she has conservatorship for Lizeth's finances but that there is no legal guardianship in place.?Lizeth has been living with her?? since 2013.?? There are no family members??in her life and her mother reportedly when she was young.?? I confirmed home medicationswith Bri-she states she assists Lizeth with her home meds.? Card Seller reviewed??this??case??and in fact this patient had completed conservatorship through the courts in 2007 naming Bri as conservator.? It also appeared at that time there was some determination by the financial services auditor about the patient's capacity ??however guardianship was not pursued for unclear reasons (see SW notes).?? I confirmed with PCP office that they do not have any HCP documents.? Encounter with patient at bedside:?? Patient seen in the ED.??Remains in Ines vest.?Was holdingonto an emesis bag??when I entered the room.?? Persistently asking to go home.?? Speech was rapid??and??repetitive.?Talking about??her mother??getting run over by a train??and repeatedly listing??her relatives??by name.?Asking to go home and states??she does not live with Bri. ? Review of Systems Unable to obtain due to AMS Denies visual difficulties or RANDLE Physical Exam Vitals & Measurements T:??97.7?F?? TMIN:??97.7?F?? TMAX:??98.0?F?? HR:??58??(Peripheral)?? RR:??18?? BP:??129/69?? SpO2:??98%?? Lying in ED stretcher Poor eye contact, noted right lid ptosis partially, left lid with some dried debris Right cornea somewhat clouded? EOMI?? MMST 5/5 both UE not cooperative with LE motor exam Speech rapid, rambling,?? disorganized thoughts its the anniversary of my mom getting run over by the locomotive ?? I'll never forgive the conductor, my uncle Braulio and??other cousin and cousin Ira and I'm a oh girl.... ?? 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 new and mild [place].? Now with protracted delirium, has not returned to baseline.? Does not have HCP or legal guardian and ability to make Health Care decisions unclear. ? Recommendations: ?? Discussed with Geriatrics Attending and Dr. Melo.?? Given right lid ptosis recommend repeat head imaging,?? Defer to primary team need for additional work up. ?? Please recheck LFT's, ammonia Needs formal capacity evaluation to determine if she can ??make health care decisions by Psychiatryand also for medication recommendations Reduce Gabapentin?? to 400 mg once daily (baseline regimen) due to elevation in creat Will need coordination in discharge planning, may need locked facility if her caregiver cannot manage but will need HCP or guardian first ?? MIND #Acute hyperactive Delirium - likely multifactorial due to - ??age, change in environment,??infection, baseline mental health diagnosis - Please try non pharmacological interventions first for delirium -??frequent reorientation/redirection/reassurance, encourage family visits/calls - adequate control of pain - monitor for urinary retention, constipation - sleep hygiene (bright light in day, dim at night, limit VS checks/interruptions at night time) - encourage oral hydration and nutrition - window side bed if possible - engage during the daytime so they sleep more at night - out of bed to chair during the daytime, ambulate TID with assistance - 1:1 sitter if needed -??please avoid restraints as they worsen delirium - If concerned about patient's or others' safety due to patient's delirium-Await Psychiatry recommendations.?? - most recent QTC?? 430 - Please avoid benzos, antihistamines, anticholinergics ? Total Time Spent I personally spent a total of _ 152minutes, including both [id number] and [id number] time on the date of the encounter, addressing the above diagnoses. Activities performed in this time include chart review, obtaining / reviewing history, performing amedically necessary evaluation, documentation and Care CoordinationD/w RN, Dr. Cortez and Dr. Magallon,Texted??Attending Hospitalist? Problem List/Past Medical History Ongoing COVID-19 Dementia HLD (hyperlipidemia) Hypothyroidism Osteoporosis Schizotypal disorder Medications Inpatient 0.9% NaCL 1,000 mL, 1000 mL, IV Infusion Docusate Sodium Capsule, 100 mg= 1 capsule, By Mouth, 2 times a day, PRN donepezil 5 mg oral tablet, 5 mg, By Mouth, Daily at bedtime Enoxaparin Inj, 30 mg= 0.3 mL, Subcutaneous Injection, Daily gabapentin 100 mg oral capsule, 200 mg, By Mouth, 2 times a day levothyroxine 0.025 mg oral tablet, 25 mcg, By Mouth, Daily Melatonin Tablet, 3 mg, By Mouth, Daily at bedtime, PRN MiraLax Powder, 17 Gm= 1 pack/packet, By Mouth, Daily, PRN NaCL 0.9% Flush, 3 mL, IV Push, Every 8 hours NaCL 0.9% Flush, 3 mL, IV Push, Every 8 hours, PRN Neurontin 400 mg oral capsule, 400 mg, By Mouth, Daily at bedtime pravastatin 20 mg oral tablet, 20 mg, By Mouth, Daily SEROquel 25 mg oral tablet, 25 mg, By Mouth, Daily at bedtime SEROquel 25 mg oral tablet, 12.5 mg, By Mouth, 3 times a day, PRN Simethicone Tablet, 80 mg, Chew, 3 times a day, PRN traZODone 50 mg oral tablet, 50 mg, By Mouth, Daily at bedtime, PRN Vitamin D3 2000 intl units oral tablet, 1000 International_Units, By Mouth, Daily Home alendronate 70 mg oral tablet, 70 mg= 1 tablet, By Mouth, Every week donepezil 5 mg oral tablet, 5 mg= 1 tablet, By Mouth, Daily at bedtime Gabapentin, 400 mg, By Mouth, Daily at bedtime gabapentin 100 mg oral capsule, See Instructions levothyroxine 25 mcg (0.025 mg) oral capsule, 25 mcg= 1 capsule, By Mouth, Daily Paroxetine, 30 mg, By Mouth, Daily Pravastatin, 20 mg, By Mouth, Daily SEROquel 25 mg oral tablet, 25 mg, By Mouth, Daily at bedtime Vitamin D3 50 mcg (2000 intl units) oral tablet, chewable, 25 mcg= 0.5 tablet, By Mouth, Daily Allergies NKA Social History Alcohol Use: Current. Frequency: 1-2 times per week. Substance Abuse Use: Never. Tobacco Use: Never (less than 100 in lifetime). Lab Results Event Name?? Event Result?? Date/Time?? Abs. Baso 0 k/mm3 03/21/24 Abs. Eo 0.1 k/mm3 03/21/24 Abs. Imm Gran 0 k/mm3 03/21/24 Abs. Lymph 1.2 k/mm3 03/21/24 Abs. [place] 0.6 k/mm3 03/21/24 Abs. Neut 6.1 k/mm3 03/21/24 Abs. NRBC 0 k/mm3 03/21/24 Albumin, Urine NEGATIVE 03/21/24 Anion Gap 11 03/21/24 Appear/Color, Urine LIGHT YELLOW 03/21/24 Baso % 0.5 % 03/21/24 Bicarbonate Level 24 mmol/L 03/21/24 Bilirubin, Urine NEGATIVE 03/21/24 BUN 19 mg/dL 03/21/24 Calcium 9.1 mg/dL 03/21/24 Chloride 104 mmol/L 03/21/24 CK, Total 174 units/L 03/21/24 Creatinine-Blood 1.24 mg/dL??High 03/21/24 Eos % 1 % 03/21/24 Estimated GFR Creatinine 44 ML/MIN/1.73 M2 03/21/24 Glucose Level 95 mg/dL 03/21/24 Glucose, POC 110 mg/dL??High 03/22/24 Glucose, Urine NEGATIVE 03/21/24 Hct 43.5 % 03/21/24 Hemoglobin, Urine NEGATIVE 03/21/24 Hgb 13.9 Gm/dL 03/21/24 Hold Urine Culture Testing available 48 hours from time of collection. 03/21/24 Imm Gran 0.4 % 03/21/24 Ketones, Urine NEGATIVE 03/21/24 Leukocyte, Urine NEGATIVE 03/21/24 Lymph % 14.6 %??Low 03/21/24 MCH 29.1 pg 03/21/24 MCHC 32 g/dL??Low 03/21/24 MCV 91 femtoliters 03/21/24 Garfield % 7.2 % 03/21/24 MPV 9.9 femtoliters 03/21/24 Neut % 76.3 %??High 03/21/24 Nitrite, Urine NEGATIVE 03/21/24 Nucleated RBC (Automated) 0 #/100 WBC'S 03/21/24 pH, Urine 6 03/21/24 Platelet Count 251 k/mm3 03/21/24 Potassium 4.9 mmol/L 03/21/24 RBC 4.78 m/mm3 03/21/24 RBC's, Urine NONE SEEN 03/21/24 RDW-SD 49.1 femtoliters??High 03/21/24 Sodium 139 mmol/L 03/21/24 Specific [place], Urine 1.011 03/21/24 TSH 2.98 uIU/mL 03/21/24 Urobilinogen NORMAL 03/21/24 Vitamin B12 Level 1049 pg/mL 03/21/24 WBC 8 k/mm3 03/21/24 WBC's, Urine NONE SEEN 03/21/24 ? Diagnostic Results (03/09/2024 08:[address] Head/Brain W/O Contrast) ?? BRAIN and EXTRA-AXIAL SPACES: No parenchymal hemorrhage, midline shift or mass effect. Hearn-white matter differentiation is well preserved. No acute infarct. Ventricles, sulci and basilar cisterns are age appropriate.?? No white matter lesions. No subarachnoid hemorrhage, subdural or epidural collections. ?? CALVARIUM, SKULL BASE AND SOFT TISSUES: No fractures or suspicious bony lesions.?? The paranasal sinuses and mastoid air cells are clear. Visualized orbits and globes are intact.?? The extracranial soft tissues are unremarkable. ?? IMPRESSION: ?? No acute process. [1] ?? * Final Report * ?? [id number] Ventricular Rate: 54 ??BPM Atrial Rate: 54 ??BPM P-R Interval: 216 ??ms QRS Duration: 80 ??ms Q-T Interval: 456 ??ms QTC Calculation(Bazett): 432 ??ms P [place]: 82 ??degrees R [place]: 29 ??degrees T [place]: 113 ??degrees Sinus bradycardia with 1st degree A-V block T wave abnormality, consider anterior ischemia Abnormal ECG When compared with ECG of 12-MAR-2024 21:40, MA interval has increased Vent. rate has decreased BY ??29 BPM T wave inversion now evident in Anterior leads Confirmed by JOSEPH CHAVEZ ([id number]) on 03/22/2024 10:07:42 AM ?? [2] [1]??CT Head/Brain W/O Contrast; Kodi LUTZ, Kevin Weinstein 03/09/2024 08:52 EDT [2]??12 Lead ECG; Joseph Chavez MD 03/22/2024 03:41 EDT Note * Ely Lopez RN: PERFORM Event Display: Discharge/Transfer Note Hospital Authored Date: [id number] Nursing Discharge Note Entered On: 04/01/2024 17:36 EDT Performed On: 04/01/2024 17:35 EDT by Ely Lopez RN Nursing Discharge Note 2 Discharge Time : 04/01/2024 17:17 EDT Discharge Level of Care at Discharge : Homehealth/VNA Discharge VNA/Hospice/Home Care(v001) : [facility] Patient Left Unit Via : Wheelchair Patient Accompanied Off Unit with : Responsible adult DC Instructions Provided & Signed by Pt : Yes Patient Understands D/C Instructions : Yes Patient Instructions Discharge Signed : Yes Did Pt have Specialty Bed or Wound Vac : No Ely Lopez RN - 04/01/2024 17:35 EDT * Almita LUTZ, Shiraz Barkley: PERFORM, MODIFY Event Display: Discharge/Transfer Note Hospital Authored Date: [id number] Patient: ??LIZETH ROLLINS ? Age:??79 Years?Sex:??Female?:??1945?? Patient Information Discharge Location: Primary Care Physician: Mitali Blanton MD Admit Date/Time: 03/21/24 23:44 Discharge Disposition Discharge Disposition: Home with Home Health Discharge Diagnosis Delirium (R41.0) Delirium (R41.0) Altered mental state (R41.82) Schizotypal disorder (F21) Dementia (F03.90) Acute kidney injury (N17.9) HLD (hyperlipidemia) (E78.5) COVID-19 (U07.1) Hypothyroidism (E03.9) _ Discharge Medications Alendronate (alendronate 70 mg oral tablet)?1?tab(s)?70?Milligram?By Mouth?Every week Cholecalciferol (Vitamin D3 50 mcg (2000 intl units) oral tablet, chewable)?0.5?tab(s)?25?Microgram?By Mouth?Daily Divalproex Sodium (divalproex sodium 500 mg oral enteric coated tablet)?500?Milligram?By Mouth?2 times a day?for 60?Days Donepezil (donepezil 5 mg oral tablet)?5?Milligram?1?tablet?By Mouth?Daily at bedtime Gabapentin (gabapentin 100 mg oral capsule)?See Instructions?Please take 200 mg By Mouth Daily in AM and 200 mg daily at 1 PM Levothyroxine (levothyroxine 25 mcg (0.025 mg) oral capsule)?1?capsule?25?Microgram?By Mouth?Daily Pravastatin?20?Milligram?By Mouth?Daily Quetiapine (SEROquel 50 mg oral tablet)?1?tab(s)?50?Milligram?By Mouth?2 times a day Trazodone (traZODone 50 mg oral tablet)?50?Milligram?By Mouth?Daily at bedtime?for 60?Days ? Inpatient Medications Medications (17) Active SCHEDULED: (11) Divalproex 500 mg Tablet (Depakote Tablet) ??500 mg, By Mouth, 2 times a day Donepezil 5 mg Tablet (donepezil 5 mg oral tablet) ??5 mg, By Mouth, Daily at bedtime Enoxaparin 30 mg Inj (Enoxaparin Inj) ??30 mg 0.3 mL, Subcutaneous Injection, Daily Gabapentin 100 mg Capsule (gabapentin 100 mg oral capsule) ??200 mg, By Mouth, 2 times a day Gabapentin 400 mg Capsule (Neurontin 400 mg oral capsule) ??400 mg, By Mouth, Daily at bedtime Levothyroxine 25 mcg Tablet (levothyroxine 0.025 mg oral tablet) ??25 mcg, By Mouth, Daily Melatonin 3 mg Tablet (Melatonin Tablet) ??3 mg, By Mouth, Daily at bedtime Pravastatin 20 mg Tablet (pravastatin 20 mg oral tablet) ??20 mg, By Mouth, Daily Quetiapine 25 mg Tablet (SEROquel 25 mg oral tablet) ??50 mg, By Mouth, 2 times a day Trazodone 50 mg Tablet (traZODone 50 mg oral tablet) ??50 mg, By Mouth, Daily at bedtime Vitamin D 1000 IU Tablet (Vitamin D3 2000 intl units oral tablet) ??1,000 International_Units, By Mouth, Daily CONTINUOUS: (0) PRN: (6) Docusate Sodium 100 mg Capsule (Docusate Sodium Capsule) ??100 mg 1 capsule, By Mouth, 2 times a day Haloperidol Lactate 5 mg/mL Inj (1 mL) (Haldol LACTATE Inj) ??5 mg 1 mL, Intramuscular, 2 times a day NaCl 0.9% Flush 3ml (NaCL 0.9% Flush) ??3 mL, IV Push, Every 8 hours Polyethylene Glycol 17 Gm Powder (MiraLax Powder) ??17 Gm 1 pack/packet, By Mouth, Daily Quetiapine 25 mg Tablet (SEROquel 25 mg oral tablet) ??12.5 mg, By Mouth, 3 times a day Simethicone 80 mg Chewable Tablet (Simethicone Tablet) ??80 mg, Chew, 3 times a day ? Allergies Allergies ?(Active and Proposed Allergies Only) NKA? (Severity: Unknown severity, Onset: Unknown) ? PCP Follow-Up/Heads-Up med changes done to control behaviors, need psychiatric referral/follow up Hospital Course ?? 79-year-old female, history of schizotypal disorder, age admitted with altered mental status/agitation.?? Recent hospitalization, was treated for UTI, however urine cultures later turned out to be negative. ?? discharged to home with caregiver 03/21/24 after inpatient stay 03/12/24- 03/21/24.?? She had multiple presentations to the hospital (03/09/24, 03/10/24, 03/12/24) due to changes in baseline behavior (agitation, paranoia, wandering from home, refusing to take medications).?? She had been seen by Psychiatry on multiple occasions during prior hospital presentations (03/12/24, 03/14/24, 03/19/24).?? 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 ?? Gab and Psych followed the patient.?? It was deemed that does not have capacity to make medical decisions.?? There is question of if we need to pursue guardianship for patient given frequent hospitalizations. ?? Her behaviors are overall reasonably well-controlled with medication changes and tolerating the current regimen well. On 04/01/2024, contacted, with Tricia, updated plan of care.?? Discussed medications.?? Plan is todischarge her home with home health services including detention, PT, OT. ?? Delirium (R41.0) ? Grouped with Schizotypal disorder (F21), Altered mental state (R41.82), Dementia (F03.90) Acute kidney injury resolved with po intake Psych and gab followed the patient. Neuroimaging with CT head was nonacute, no acute reversible etiologies for delirium identified. - Cont seroquel 50mg BID - Cont Depakote 500mg BID - Cont Gabapentin, currently at 200 mg in the morning and 600 mg at night and trazodone 50 mg nightly - She has not needed chemical or physical restraints since 03/25 - Pt does NOT have capacity to make medical decisions at this time, per psych - Given frequent hospitalizations, Geriatrics team concerned about Bri's ability to take care of at home.?? Her behaviors appear stable currently.?? Bri should still cont to look into guardianship as patient may come back to the hospital in the future.?? Bri is aware and is speaking with sheep farm worker and a next of kin (who is not involved in patient's life). -bridge club manager has attempted to coordinate a psychiatry appointment, however was told that an appointment needs to come from primary care physician.?? Follow-up with PCP closely. ?? Acute kidney injury (N17.9): Resolved with IV fluids Continue to monitor creatinine ?? Hypothyroidism (E03.9): Continue levothyroxine ?? HLD (hyperlipidemia) (E78.5): Continue pravastatin ?? Unsteady gait PT evaluated and recommended home with services???PT, OT requested upon discharge. Objective Vital Signs?? Temperature: 97.5 DegF (04/01/24 12:05:00) Temperature Route: Oral (04/01/24 12:05:00) Pulse Rate: 81 bpm (04/01/24 12:05:00) Respiratory Rate: 20 br/min (04/01/24 12:05:00) Systolic Blood Pressure: 97 mm Hg (04/01/24 12:05:00) Diastolic Blood Pressure: 59 mm Hg (04/01/24 12:05:00) Blood pressure sites: Arm, right (04/01/24 12:05:00) Mean Arterial Pressure: 72 mm Hg (04/01/24 12:05:00) Pulse Pressure: 38 mm Hg (04/01/24 12:05:00) Oxygen Saturation: 98 % (04/01/24 12:05:00) Mode of Delivery (Oxygen): Room air (04/01/24 12:05:00) Early Warning Score: 3 (04/01/24 12:07:00) ? . Physical Exam Constitutional: Alert, in no acute distress. Mental Status: Oriented to person, self Cardiovascular: Regular rate and rythm. Gastrointestinal: Abdomen soft, non-tender, non-distended. Normal bowel sounds.?? Neurologic: No focal neurological deficits Moves all extremities spontaneously. Musculoskeletal: No Leg edema?? Consultants geriatrics, psychiatry Pending Results Add On Lab Order ordered on 03/22/2024 Patient Instructions ? You will go home with the following NEW medications: ?? Quetiapine 50 mg twice daily,??Depakote 500 mg twice daily, trazodone 50 mg nightly. Continue with gabapentin 200 mg in AM, 600 mg p.m. Monitor for excessive sedation, follow closely with primary care physician??and??request??a psychiatrist referral from PCP to follow-up closely as an outpatient. ? Activity changes: -?As tolerated. ? Who to follow up with after being discharged from the hospital: -??Please follow up at your primary??care doctor's office in 1-2 weeks.?? Home Health Face to Face *Denotes mandatory ricketts ?? *I certify that this patient is under my care and that I or an allowed non- physician working with me had a face to face encounter with the patient on this date:??04/01/2024 14:15 ?? *The encounter with the patient was in whole, or in part, for the following medical condition, which is the primary diagnosis(es) for home health care:??Delirium (R41.0) Delirium (R41.0) Altered mental state (R41.82) Schizotypal disorder (F21) Dementia (F03.90) Acute kidney injury (N17.9) HLD (hyperlipidemia) (E78.5) COVID-19 (U07.1) Hypothyroidism (E03.9) ?? *Select the indications for the discipline/s that are being arranged for this patient. Nursing (select all that apply): [_] None [x_] Medication management (reconciliation, teaching)?? [_] Chronic disease management?? [_] Wound care and treatment?? [x_] Home safety evaluation [_] Administer SQ/IM/IV medications?? [_] Cath care?? [_] Drain care?? [_] Trach or GT care?? Other _ Occupation Therapy (select all that apply): [_] None [x_] ADL Management [x_] Fall prevention training [_] Energy conservation [_] Cognitive training Other _ Physical Therapy (select all that apply): [_] None [x_] Functional mobility training [_] Home exercise program to strengthen [_] Increase ROM?? [_] Falls prevention training [_] Home maintenance program for chronic disease Other _ Speech Therapy (select all that apply): [_] None [_] Swallow evaluation and training [_] Speech and language training [_] Cognitive training to process, organize, and/or recall information Other _ ? *Homebound due to (select all that apply): [x_] Inability to leave home without assistance/supervision [x_] Inability to ambulate without assistance [_] Pain [_] Decreased strength and endurance [x_] Unsteady gait [_] Severe SOB and fatigue [_] Impaired transfers [_] Inability to negotiate stairs [_] Limited weight bearing [_] Mental status change? *Physician Signature:Shiraz Recio MD ?? *By signing this, I certify that I have personally evaluated the patient and agree with the findings and recommendations as documented above. ? thFTF Results Discharge Labs BLOOD COUNT & DIFF WBC 8.0 k/mm3 ()?? 03/21/2024 22:27 RBC 4.78 m/mm3 ()?? 03/21/2024 22:27 Hgb 13.9 Gm/dL ()?? 03/21/2024 22:27 Hct 43.5 % ()?? 03/21/2024 22:27 MCV 91.0 femtoliters ()?? 03/21/2024 22:27 MCH 29.1 pg ()?? 03/21/2024 22:27 MCHC 32.0 g/dL (Low)?? 03/21/2024 22:27 Platelet Count 251 k/mm3 ()?? 03/21/2024 22:27 RDW-SD 49.1 femtoliters (High)?? 03/21/2024 22:27 MPV 9.9 femtoliters ()?? 03/21/2024 22:27 Nucleated RBC (Automated) 0.0 #/100 WBC'S ()?? 03/21/2024 22:27 Abs. NRBC 0.0 k/mm3 ()?? 03/21/2024 22:27 Abs. Neut 6.1 k/mm3 ()?? 03/21/2024 22:27 Abs. Lymph 1.2 k/mm3 ()?? 03/21/2024 22:27 Abs. Garfield 0.6 k/mm3 ()?? 03/21/2024 22:27 Abs. Eo 0.1 k/mm3 ()?? 03/21/2024 22:27 Abs. Baso 0.0 k/mm3 ()?? 03/21/2024 22:27 Neut % 76.3 % (High)?? 03/21/2024 22:27 Lymph % 14.6 % (Low)?? 03/21/2024 22:27 Garfield % 7.2 % ()?? 03/21/2024 22:27 Eos % 1.0 % ()?? 03/21/2024 22:27 Baso % 0.5 % ()?? 03/21/2024 22:27 Imm Gran 0.4 % ()?? 03/21/2024 22:27 Abs. Imm Gran 0.0 k/mm3 ()?? 03/21/2024 22:27 ?? CARDIAC CK, Total 174 units/L ()?? 03/21/2024 22:27 ? CHEM GENERAL Sodium 140 mmol/L ()?? 03/23/2024 00:29 Potassium 4.5 mmol/L ()?? 03/23/2024 00:29 Chloride 106 mmol/L ()?? 03/23/2024 00:29 Bicarbonate Level 24 mmol/L ()?? 03/23/2024 00:29 Anion Gap 10 ()?? 03/23/2024 00:29 Glucose Level 90 mg/dL ()?? 03/23/2024 00:29 Glucose, POC 110 mg/dL (High)?? 03/22/2024 11:56 BUN 13 mg/dL ()?? 03/23/2024 00:29 Creatinine-Blood 0.99 mg/dL ()?? 03/23/2024 00:29 Estimated GFR Creatinine 57 ML/MIN/1.73 M2 ()?? 03/23/2024 00:29 Calcium 8.7 mg/dL ()?? 03/23/2024 00:29 Vitamin B12 Level 1049 pg/mL ()?? 03/21/2024 22:27 ?? ENDOCRINE/TUMOR MARKER TSH 2.98 uIU/mL ()?? 03/21/2024 22:27 ? TOXICOLOGY/TDM Valproic Level 67.9 mg/L ()?? 03/28/2024 10:46 ? UA/URINALYSIS Appear/Color, Urine LIGHT YELLOW ()?? 03/21/2024 22:28 Specific [place], Urine 1.011 ()?? 03/21/2024 22:28 pH, Urine 6.0 ()?? 03/21/2024 22:28 Albumin, Urine NEGATIVE ()?? 03/21/2024 22:28 Glucose, Urine NEGATIVE ()?? 03/21/2024 22:28 Ketones, Urine NEGATIVE ()?? 03/21/2024 22:28 Bilirubin, Urine NEGATIVE ()?? 03/21/2024 22:28 Hemoglobin, Urine NEGATIVE ()?? 03/21/2024 22:28 Nitrite, Urine NEGATIVE ()?? 03/21/2024 22:28 Leukocyte, Urine NEGATIVE ()?? 03/21/2024 22:28 Urobilinogen NORMAL mg/dL ()?? 03/21/2024 22:28 WBC's, Urine NONE SEEN /HPF ()?? 03/21/2024 22:28 RBC's, Urine NONE SEEN /HPF ()?? 03/21/2024 22:28 Hold Urine Culture Testing available 48 hours from time of collection. ()?? 03/21/2024 22:28 ? 40 minutes spent on discharge * Parent Meseret WELLER: VERIFY, PERFORM, SIGN Event Display: Case Management Discharge Plan Authored Date: Patient: LIZETH ROLLINS Age: 79 years Sex: Female : 1945 Associated Diagnoses: None Author: Parent RN, Meseret Islas Discharge Plan Case Management Discharge Plan : Case Management Discharge Plan Data 04/01/2024 10:07 EDT Discharge Level of Care at Discharge Homehealth/VNA Discharge VNA/Hospice/Home Care [facility] Discharge Transportation Arranged Bri (Caregiver) Name of Agency #1 [facility] Categories #1 Occupational Therapy, Physical Therapy, Prison Service Comments #1 [phone] will provide Skilled nurse, Physical Therapy andoccupational therapy. Someone should be calling you in 1-2 days after discharge. Name of Person Notified of Transfer Patient and Bri * John WELLER, Ely: PERFORM Event Display: Patient Education/Instruction Authored Date: Inpatient Adult Discharge Instructions. [address] [address] Name: LIZETH ROLLINS : 1945?? Visit: 03/21/2024 23:44?? Current Date: 04/01/2024 15:53 ?? Account: [id number]?? Inpatient Adult Discharge Instructions We would like [...] and their families. Surveys are administered by [employer] ?? If further treatment with your primary care physician or another doctor is recommended, it is important for you to keep the appointment. Call your primary care physician or return to the Emergency Department immediately if your condition worsens, fails to improve, or new symptoms develop. If you need to find a doctor, you can call [facility] Direct for a referral at [phone] or toll free at [phone]) or log in to [email or web address].. ?? [facility], in keeping with [facility] guidance, no longer requires face masks [...] a health care jaleel of your choosing. [employer] is a website that allows you to securely view your medical information including your hospital discharge summary, office visit summaries, medications and follow-up visits. You can also request appointments, renew medications, and request access to your medical information using a health care jaleel of your choosing, or just ask a question. You can enroll at [email or web address] or register during your next office visit. You have been discharged from [facility], Patient Care Unit: S1??. If you have any questions regarding these instructions, including results of studies pending, afteryou leave, please call us and we will be happy to assist you 24/04. [facility] Your Care Team Attending Physician Almita LUTZ, Shiraz Barkley?? Consulting Providers Shiraz Recio MD?? Discharging Providers Shiraz Recio MD Reason for Your Visit AMS?? Your Diagnosis Delirium Altered mental state Schizotypal disorder HLD (hyperlipidemia) COVID-19 Altered mental status Hypothyroidism Tests Performed Below is a partial list of the tests performed during your hospitalization. You may have had other tests and procedures not included in this list. Please discuss all test results with your provider. Basic Metabolic Panel BUN Calcium Level CBC w/ Differential CK,TOTAL ONLY Creatinine Depakote Level Electrolytes Glucose Level GLUCOSE POC TSH Urinalysis w/hold for Urine Culture VITAMIN B12 CT Head/Brain W/O Contrast Add On Lab Order?? Primary Care Provider Mitali Blanton MD? Advance Directive Health Care Proxy on File No Patient refuses to discuss Discharge Vitals Temperature: 97.5 DegF Pulse Rate: 81 bpm Respiratory Rate: 20 br/min Systolic Blood Pressure: 97 mm Hg Diastolic Blood Pressure: 59 mm Hg Oxygen Saturation: 98 % Studies Pending All studies ordered during this hospital stay have been completed unless listed below. Please discuss all pending results with your provider listed above in these instructions. ?? Add On Lab Order?? What to do next Instructions From Your Doctor ? You will go home with the following NEW medications: ?? Quetiapine 50 mg twice daily,??Depakote 500 mg twice daily, trazodone 50 mg nightly. Continue with gabapentin 200 mg in AM, 600 mg p.m. Monitor for excessive sedation, follow closely with primary care physician??and??request??a psychiatrist referral from PCP to follow-up closely as an outpatient. ? Activity changes: -?As tolerated. ? Who to follow up with after being discharged from the hospital: -??Please follow up at your primary??care doctor's office in 1-2 weeks.? Orders??:Regular Diet :Ambulate with assistance ??3 times a day ??unless otherwise specified Status: ??Full Resuscitation? 04/01/24 14:16:00 EDT?? You Need to Schedule the Following Appointments Follow Up with??Mitali Blanton MD Why: Please make a follow up appointment in 1-2 weeks Where: [facility] [place] [address]- Discharge Medications LIZETH ROLLINS :1945 Visit Date:03/21/2024 Medications: Please continue your medications until treatment is completed or stopped by your provider. Medications not listed below should be discontinued. Discuss any questions related to medications with your provider. What How Much When Instructions Next Dose New Divalproex Sodium (divalproex sodium 500 mg oral enteric coated tablet) 500 Milligram Oral Twice a day Duration: 60 Days Pickup at [facility] #[id number] 04/01 9pm New Trazodone (traZODone 50 mg oral tablet) 50 Milligram Oral Daily at Bedtime Duration: 60 Days Pickup at [facility] #[id number] 04/01 10pm Changed Gabapentin (gabapentin 100 mg oral capsule) See instructions Please take 200 mg By Mouth Daily in AM and 200 mg daily at 1 PM ?? 04/01 9pm Changed Quetiapine (SEROquel 50 mg oral tablet) 1 tab(s) Oral Twice a day Pickup at [facility] #[id number] 04/01 9pm Unchanged Alendronate (alendronate 70 mg oral tablet) 1 tab(s) Oral Every week 04/02 9am Unchanged Cholecalciferol (Vitamin D3 50 mcg (2000 intl units) oral tablet, chewable) 0.5 tab(s) Oral Daily 04/02 9am Unchanged Donepezil (donepezil 5 mg oral tablet) 1 tab(s) Oral Daily at Bedtime 04/01 10pm Unchanged Levothyroxine (levothyroxine 25 mcg (0.025 mg) oral capsule) 1 capsule Oral Daily 04/02 9am Unchanged Pravastatin 20 Milligram Oral Daily 04/02 9am Pharmacy Information [facility] #[id number]: [address], [place] [id number] [phone] ?? What How Much When Comments Stop Taking Paroxetine 30 Milligram Oral Daily Prescription Given During Visit Divalproex Sodium (divalproex sodium 500 mg oral enteric coated tablet) - 500 mg, By Mouth, 2 timesa day, # 120 tablet, 0 Refills, [facility] #[id number], [address] [place] [phone]?? Quetiapine (SEROquel 50 mg oral tablet) - 1 tablet = 50 mg, By Mouth, 2 times a day, # 180 tablet, 0 Refills, [facility] #[id number], [address] [place] [address] [phone]?? Trazodone (traZODone 50 mg oral tablet) - 50 mg, By Mouth, Daily at bedtime, # 60 tablet, 0 Refills, [facility] #[id number], [address] [place] [phone]?? Laboratory Results Below is a partial list of the most recent Laboratory test results done prior to this discharge. You may have had other tests and procedures not included in this list. Please discuss all test resultswith your provider. Basic Metabolic Panel (03/21/2024) ???Sodium - 139 mmol/L???Potassium - 4.9 mmol/L???Chloride - 104 mmol/L???Bicarbonate Level - 24 mmol/L???Anion Gap - 11???Glucose Level - 95 mg/dL???BUN - 19 mg/dL???Creatinine-Blood - 1.24 mg/dL???Estimated GFR Creatinine - 44 ML/MIN/1.73 M2???Calcium - 9.1 mg/dL BUN (03/23/2024) ???BUN - 13 mg/dL Calcium Level (03/23/2024) ???Calcium - 8.7 mg/dL CBC w/ Differential (03/21/2024) ???WBC - 8.0 k/mm3???RBC - 4.78 m/mm3???Hgb - 13.9 Gm/dL???Hct - 43.5 %???MCV - 91.0 femtoliters???MCH - 29.1 pg???MCHC - 32.0 g/dL???Platelet Count - 251 k/mm3???RDW-SD - 49.1 femtoliters???MPV - 9.9 femtoliters???Nucleated RBC (Automated) - 0.0 #/100 WBC'S???Abs. NRBC - 0.0 k/mm3???Abs. Neut - 6.1 k/mm3???Abs. Lymph - 1.2 k/mm3???Abs. Garfield - 0.6 k/mm3???Abs. Eo - 0.1 k/mm3???Abs. Baso - 0.0 k/mm3???Neut % - 76.3 %???Lymph % - 14.6 %???Garfield % - 7.2 %???Eos % - 1.0 %???Baso % - 0.5 %???Imm Gran- 0.4 %???Abs. Imm Gran - 0.0 k/mm3 CK,TOTAL ONLY (03/21/2024) ???CK, Total - 174 units/L Creatinine (03/23/2024) ???Creatinine-Blood - 0.99 mg/dL???Estimated GFR Creatinine - 57 ML/MIN/1.73 M2 Depakote Level (03/28/2024) ???Valproic Level - 67.9 mg/L Electrolytes (03/23/2024) ???Sodium - 140 mmol/L???Potassium - 4.5 mmol/L???Chloride - 106 mmol/L???Bicarbonate Level - 24 mmol/L???Anion Gap - 10 Glucose Level (03/23/2024) ???Glucose Level - 90 mg/dL GLUCOSE POC (03/22/2024) ???Glucose, POC - 110 mg/dL TSH (03/21/2024) ???TSH - 2.98 uIU/mL Urinalysis w/hold for Urine Culture (03/21/2024) ???Appear/Color, Urine - LIGHT YELLOW???Specific [place], Urine - 1.011???pH, Urine - 6.0???Albumin, Urine - NEGATIVE???Glucose, Urine - NEGATIVE???Ketones, Urine - NEGATIVE???Bilirubin, Urine - NEGATIVE???Hemoglobin, Urine - NEGATIVE???Nitrite, Urine - NEGATIVE???Leukocyte, Urine - NEGATIVE???Urobi linogen - NORMAL???WBC's, Urine - NONE SEEN???RBC's, Urine - NONE SEEN???Hold Urine Culture - Testing available 48 hours from time of collection. VITAMIN B12 (03/21/2024) ???Vitamin B12 Level - 1049 pg/mL Allergies (NKA means No Known Allergies) NKA Problems Active Problems??(7) allergic rhinitis?? COVID-19?? Dementia?? HLD (hyperlipidemia)?? Hypothyroidism?? Osteoporosis?? Schizotypal disorder?? Education Materials Below is the list of Educational Leaflet Providered with your Discharge Instructions. Valuables and Belongings I fully understand and agree that [facility] accepts no responsibility for all my personal [...] to send valuables and belongings home. ?? No Valuables/Belongings: No valuables/belongings present Review of Valuable and Belonging List: With patient Possessions released to: no medical devices Date for Pt to Sign Valuables/Belongings: 03/22/24 22:28:00 ?? Other Discharge Information ? Case Management Discharge Plan?? Discharge Plan?? Discharge Agency Information?? Discharge Level of Care at Discharge: Homehealth/VNA Name of Agency #1: [facility] Discharge Rx Program: Discharge Prescription Program Service Categories #1: Occupational Therapy, Physical Therapy, Prison Discharge Transportation Arranged: Bri (Caregiver) Service Comments #1: [phone] will provide Skilled nurse, Physical Therapy and occupational therapy. Someone should be calling you in 1-2 days after discharge. Discharge VNA/Hospice/Home Care: [facility] Name of Person Notified of Transfer: Patient and Bri ?? Pulmonary Rehab Status?? Pulmonary Rehab Discharge Status?? Respiratory Rate: 20 br/min ? Common Emergency Awareness Tips IS [...] are strongly encouraged to quit. Please call [employer] [facility] at [phone] or [phone]) or log in to [email or web address] for referrals to smoking cessation programs. ?? 984 Suicide & Crisis Lifeline is available 24/04 if you or someone you know needs to find a reason to keep living. By calling 075 you'll be connected to a skilled, trained counselor at a crisis center in your area. INPATIENT DISCHARGE INSTRUCTIONS SIGNATURE PAGE LIZETH ROLLINS Location:[facility] Registration Date and Time:03/21/2024 23:44 EDT Primary Care Physician: Mitali Blanton MD, Attending Physician: Almita LUTZ, Shiraz Barkley, I ROLLINSLIZETH CHAVEZ, have received the above patient education materials/instructions and have verbalized understanding. If ambulance or transport services are being used I further acknowledge being given a choice of service. ?? If you need to contact me, please call me at this number: . Patient/Director Of Rotc Name: Patient/Director Of Rotc Signature: Relationship to Patient: Witness Name/Signature: Date: Patient Care team information Care Team Personnel Name: Magy Ricketts RN Position: [facility] RN Member Role: Primary Care Nurse Name: Shay Dumont RN Position: S RN Member Role: Primary Care Nurse Name: Felix Shrestha RN Position: S RN Member Role: Primary Care Nurse Name: Carolina Azul RN Position: S RN Member Role: Primary Care Nurse Name: Ioana Shaw Position: [facility] RN Member Role: Primary Care Nurse Name: Mitali Blanton MD Position: [facility] Physician - Primary Care Member Role: PCP Address: Address: [address] Name: Shilpa Serna RN Position: [facility] RN Member Role: Primary Care Nurse Name: Mehnaz De Jesus Position: [facility] RN Member Role: Primary Care Nurse Name: Dee Yi RN Position: [facility] RN Member Role: Primary Care Nurse Name: Parth Velazquez RN Position: [facility] RN Member Role: Primary Care Nurse Name: Jennifer Dale RN Position: [facility] RN Member Role: Primary Care Nurse Name: Selam Diallo RN Position: [facility] RN Member Role: Primary Care Nurse Name: Patricia Hood RN Position: S RN Member Role: Primary Care Nurse Name: Janette Albarran RN Position: [facility] RN Member Role: Primary Care Nurse Name: Luis Lea RN Position: [facility] RN Member Role: Primary Care Nurse Care Team Related Persons Name: RANDOLPH DOUGHERTYENTINA Address: [address] [place] [address] Name: TRICIA ARIAS Address: [address] [place] [address]
--- OUTSIDE RECORDS SUMMARY | 2024-04-25 13:50 | XMS_ITS | Continuity of Care Document ---
Author Organization [facility] Address [address] [place] [address]- Care Team Providers Care Machine Room Engineer Name Role Phone Mitali Blanton MD Primary Care Physician [phone] Encounter [facility] Date(s): 03/09/24 - 03/09/[address] [address]- Discharge Disposition: A-D/C Home Attending Physician: Reza Spicer MD Admitting Physician: Reza Spicer MD Referring Physician: Not on Staff, Referring MD Allergies, Adverse Reactions, Alerts No Known Allergies Medications cephalexin monohydrate 500 mg oral capsule 1 capsule = 500 mg, By Mouth, 3 times a day, for 7 days, # 21 capsule, 0 Refills, Acute 03/16/24 9:36:00 EDT, 03/09/24 9:36:00 EDT, Capsule, [id number], Partial fill upon patient request if the prescription is for a schedule II opioid... Start Date: 03/09/24 Stop Date: 03/16/24 Status: Ordered donepezil 5 mg oral tablet 5 mg, 1, tablet, By Mouth, Daily at bedtime, Refills 0, Maintenance, 03/09/24 7:59:00 EDT, Partial fill upon patient request if the prescription is for a schedule II opioid drug. Start Date: 03/09/24 Status: Ordered Gabapentin By Mouth, 0 Refills, Maintenance, 08/20/22 9:06:00 EST, Partial fill upon patient request if the prescription is for a schedule II opioid drug. Start Date: 08/20/22 Status: Ordered levothyroxine 0.1 mg oral tablet 1 tablet = 100 mcg, By Mouth, Daily, 0 Refills, Maintenance, 08/20/22 9:09:00 EST, Partial fill upon patient request if the prescription is for a schedule II opioid drug. Start Date: 08/20/22 Status: Ordered Namenda By Mouth, 2 times a day, 0 Refills, Maintenance, 08/20/22 9:08:00 EST, Partial fill upon patient request if the prescription is for a schedule II opioid drug. Start Date: 08/20/22 Status: Ordered Paroxetine By Mouth, 0 Refills, Maintenance, 08/20/22 9:11:00 EST, Partial fill upon patient request if the prescription is for a schedule II opioid drug. Start Date: 08/20/22 Status: Ordered Paxlovid 150 mg-100 mg oral tablet See Instructions, 300mg nirmatrelvir (two 150mg tablets) with 100mg ritonavir (one tablet). All 3 tablets taken together twice daily for 5 days, with or without food., # 30 tablet, 0 Refills, Maintenance, 08/20/22 11:27:00 EST, [facility] #... Start Date: 08/20/22 Status: Ordered Pravastatin By Mouth, Daily, 0 Refills, Maintenance, 08/20/22 9:06:00 EST, Partial fill upon patient request ifthe prescription is for a schedule II opioid drug. Start Date: 08/20/22 Status: Ordered Problem List Condition Confirmation Course Effective Dates Status [facility] Informant COVID-19 1 Confirmed 08/20/22 Active 1Problem added by Discern Expert Results Radiology Reports * Exam Date Time Procedure Performing Provider Status 03/09/24 8:[address] Head/Brain W/O Contrast Machelle Wan; Auth (Verified) Notes: (CT Head/Brain W/O Contrast) Reason For Exam: confusion;Other: RESULT: CT Head/Brain W/O Contrast CT Head/Brain W/O Contrast INDICATION: Hx of Present Illness: noticed to be hearing things that are not there yesterday, no fevers, no odor to urine. She is hearing voices conversations when there is no conversation, also decrease in appetite for a week; TECHNIQUE: Incremental CT without contrast through the head was formatted in axial and coronal plane. Weight-based protocol using automatic tube modulation was performed to optimize scan parameters. CTDIvol Head: 48.60 mGy, DLP Head: 793 mGy*cm. COMPARISON: None. FINDINGS: BRAIN and EXTRA-AXIAL SPACES: No parenchymal hemorrhage, midline shift or mass effect. Hearn-white matter differentiation is well preserved. No acute infarct. Ventricles, sulci and basilar cisterns are age appropriate. No white matter lesions. No subarachnoid hemorrhage, subdural or epidural collections. CALVARIUM, SKULL BASE AND SOFT TISSUES: No fractures or suspicious bony lesions. The paranasal sinuses and mastoid air cells are clear. Visualized orbits and globes are intact. The extracranial soft tissues are unremarkable. IMPRESSION: No acute process. WSN: [id number] Ordering Physician: Reza Spicer Dictated By: Kevin Mariee MD Dictated Date/Time: 03/09/24 9:13 am Reviewed By: Kevin Mariee MD Signed By: Kevin Mariee MD Signed Date/Time: 03/09/24 9:13 am Transcribed By: COURTNEY Transcribed Date/Time: 03/09/24 9:12 am Vital Signs Most recent to oldest [Reference Range]: 1 2 Height 158 cm (03/09/24 9:51 AM) 158 cm (03/09/24 7:55 AM) Weight 64.8 kg (03/09/24 9:51 AM) 64.8 kg (03/09/24 7:55 AM) Oxygen Saturation [94-100 %] 94 % (03/09/24 9:51 AM) 96 % (03/09/24 7:55 AM) Pulse Rate [55-90 bpm] 72 bpm (03/09/24 9:51 AM) 69 bpm (03/09/24 7:55 AM) Body Mass Index [18.5-24.99 kg/m2] 25.96 kg/m2 *H* (03/09/24 9:51 AM) Blood Pressure [90-138/55-84 mm Hg] 144/ 92mm Hg *H* (03/09/24 9:51 AM) 149/76mm Hg *H* (03/09/24 7:55 AM) Respiratory Rate [16-30 br/min] 18 br/mi n (03/09/24 7:55 AM) Temperature [96.8-100.4 DegF] 98.1 DegF (03/09/24 9:51 AM) 97.6 DegF (03/09/24 7:55 AM) Mode of Delivery (Oxygen) Room air (03/09/24 9:51 AM) Room air (03/09/24 7:55 AM) Blood pressure sites Arm, right (03/09/24 9:51 AM) Temperature Route Oral (03/09/24 9:51 AM) Dry Weight 64.8 kg (03/09/24 9:51 AM) 64.8 kg (03/09/24 7:55 AM) Dry Weight Obtained Via Standing scale (03/09/24 7:55 AM) Social History Social History Type Response Smoking Status Never (less than 100 in lifetime) entered on: 08/20/22 Sex Note * Reza Spicer MD: PERFORM, SIGN, VERIFY Event Display: Patient Education Handout Authored Date: [id number] * Reza Spicer MD: PERFORM Event Display: Patient Education Leaflets Authored Date: [id number] Bladder Infection,??Female (Adult) ?? [id number] Bladder Infection,??Female (Adult) Urine normally doesn't have any germs (bacteria) in it. But bacteria can get into the urinary tractfrom the skin around the rectum. Or they can travel in the blood from other parts of the body. Oncethey are in your urinary tract, they can cause infection in these areas: ??? The urethra (urethritis) ??? The bladder (cystitis) ??? The kidneys (pyelonephritis) The most common place for an infection is in the bladder. This is called a bladder infection. This is one of the most common infections in women because women have a shorter urethra than men. Bacteria have a shorter distance to travel to reach the bladder.. Women who have gone through menopause also lose the protection from estrogen that lowers the chance of getting a UTI. And some women are at higher risk because of their genes. Most bladder infections are easily treated. They are not serious unless the infection spreads to the kidney. The terms bladder infection, UTI, and cystitis are often used to describe the same thing. But they are not always the same. Cystitis is an inflammation of the bladder. The??most common cause of cystitis is an infection. Symptoms The infection causes inflammation in the urethra and bladder. This causes many of the symptoms. Themost common symptoms of a bladder infection are: ??? Pain or burning when urinating ??? Having to urinate more often than normal ??? Urgent need to urinate ??? Only a small amount of urine comes out ??? Blood in urine ??? Belly (abdominal) discomfort. This is often in the lower belly above the pubic bone. ??? Lower back pain ??? Cloudy urine ??? Strong- or bad-smelling urine ??? Unable to urinate(urinary retention) ??? Unable to hold urine in (urinary incontinence) ??? Fever ??? Loss of appetite ??? Confusion (in older adults) ?? Causes Bladder infections are not contagious. You can't get one from someone else, from a toilet seat, or from sharing a bath. The most common cause of bladder infections is bacteria from the bowels. The bacteria get onto the skin around the opening of the urethra. From there, they can get into the urine. Then they travel upto the bladder, causing inflammation and infection. This often happens because of: ??? Wiping incorrectly after urinating. Always wipe from front to back. ??? Bowel incontinence ??? . Duringpregnancy urinary tract changes raise the risk for infection. ??? Procedures such as having a catheter put in ??? Older age ??? Not emptying your bladder. This can give bacteria a chance to grow in your urine. ??? Fluid loss (dehydration) ??? Constipation ??? Having sex ??? Using a diaphragm for control? Treatment Bladder infections are diagnosed by a urine test and urine culture. They are treated with antibiotics. They often??clear up quickly without problems. Treatment helps prevent a more serious kidney infection. ?? Medicines Medicines can help in the treatment of a bladder infection: ??? Take antibiotics until they are used up, even if you feel better. It's important to finish them to make sure the infection has cleared.??? You can use acetaminophen or ibuprofen for pain, fever, or discomfort, unless another medicine was prescribed. If you have long-term (chronic) liver or kidney disease, talk with your healthcare??provider before using??these medicines. Also talk with your provider if you've ever had a stomach ulcer or GI (gastrointestinal) bleeding, or are taking blood-thinner medicines. ??? If you are given??phenazopydridine to reduce burning with urination, it will make your urine a bright orange color. This can stain clothing. ?? Care and prevention These self-care steps can help prevent future infections: ??? Drink plenty of fluids. This helps toprevent dehydration and flush out your bladder. Do this??unless you must restrict fluids for other health reasons, or your healthcare provider told you not to. ??? Clean yourself correctly after going to the bathroom. Wipe from front to back after using the toilet. This helps prevent the spread of bacteria. ??? Urinate more often. Don't try to hold urine in for a long time. ??? Wear loose-fittingclothes and cotton underwear. Don't wear tight- fitting pants. ??? Improve your diet and prevent constipation. Eat more fresh fruits and vegetables, and??fiber. Eat less junk foods and fatty foods. ??? Don't have sex until your symptoms are gone. ??? Don't have caffeine, alcohol, and spicy foods. These can irritate your bladder. ??? Urinate right after you have sex to flush out your bladder. ??? If you use control pills and have frequent bladder infections, discuss it with your healthcare provider. ?? Follow-up care Call your healthcare provider if all symptoms are not gone after 3 days of treatment. This is especially important if you have repeat infections. If a culture was done, you will be told if your treatment needs to be changed. If directed, you cancall??to find out the results. If X-rays were done, you will be told if the results will affect your??treatment. ?? Call 911 Call 911 if any of the following occur: ??? Trouble breathing ??? Hard to wake up or??confusion ???Fainting (loss of consciousness) ??? Fast heart rate ?? When to get medical advice Call your healthcare provider right away if any of these occur: ??? Fever of 100.4??F (38.0??C) or higher, or as directed by your healthcare provider ??? Symptoms are not better??after 3 days of treatment ??? Symptoms get worse or you have new symptoms ??? Back or belly pain that gets worse ??? Repeated vomiting, or unable to keep medicine down ??? Weakness or dizziness ??? Vaginal discharge ??? Pain, redness, or swelling in the outer vaginal area (labia) ?? Last Reviewed Date: 2021 ?? 8450-0620 The [employer]. All rights reserved. This information is not intended as a substitute for professional medical care. Always follow your healthcare professional's instructions. ?? Patient Care team information Care Team Personnel Name: Mitali Blanton MD Position: [facility] Physician - Primary Care Member Role: PCP Address: Address: [address] [place] [address]- Care Team Related Persons Name: TRICIA DOUGHERTY Address: home [address] [place] [address] Name: TRICIA ARIAS Address: [address] [place] [address]
--- OUTSIDE RECORDS SUMMARY | 2024-04-25 13:50 | XMS_ITS | Continuity of Care Document ---
Author Organization [facility] Address [address] [place] [id number] Care Team Providers Care Glass Calibrator Name Role Phone Mitali Blanton MD Primary Care Physician [phone] Encounter [facility] Date(s): 03/12/24 - 03/21/[address] [id number] Encounter Diagnosis Agitation(Final) - 03/12/24 Discharge Disposition: A-Transfer VNA/Home Health Attending Physician: Nicole Vargas MD Admitting Physician: Leslie Wolf MD Referring Physician: Not on Staff, Referring MD Allergies, Adverse Reactions, Alerts No Known Allergies Medications alendronate 70 mg oral tablet 1 tablet = 70 mg, By Mouth, Every week, # 4 tablet, 0 Refills, Maintenance, 03/10/24 19:26:00 EDT, Tablet, Partial fill upon patient request if the prescription is for a schedule II opioid drug. Start Date: 03/10/24 Status: Ordered donepezil 5 mg oral tablet [...] drug. Start Date: 08/20/22 Status: Ordered gabapentin 100 mg oral capsule See Instructions, Please take 200 mg By Mouth Daily in AM and 200 mg daily at 1 PM, # 120 capsule, Refills 0, Tot. Refills 0, Maintenance, 03/21/24 12:45:00 EDT, Instructions Replace Required Details, Route to Pharmacy Electronically, [facility]... Start Date: 03/21/24 Status: Ordered gabapentin 100 mg oral capsule 200 mg, Capsule, By Mouth, 03/21/24 9:00:00 EDT Start Date: 03/21/24 Stop Date: 03/21/24 Status: Completed gabapentin 100 mg oral capsule 200 mg, Capsule, By Mouth, 03/21/24 13:00:00 EDT Start Date: 03/21/24 Stop Date: 03/21/24 Status: Completed levothyroxine 25 mcg (0.025 mg) [...] drug. Start Date: 08/20/22 Status: Ordered SEROquel 25 mg oral tablet 25 mg, By Mouth, Daily at bedtime, # 5 tablet, Refills 0, Tot. Refills 0, Maintenance, 03/21/24 12:47:00 EDT, Route to Pharmacy Electronically, [email or web address][id number], Partial fill upon patient request if the prescription is for a schedule II opi... Start Date: 03/21/24 Stop Date: 03/26/24 Status: Ordered Vitamin D3 50 mcg (2000 [...] Exam Date Time Procedure Performing Provider Status 03/12/24 11:46 PM Chest Portable Mark Alvarado (Verified) Notes: (Chest Portable) Reason For Exam: Shortness of Breath RESULT: Chest Portable Examination: Portable chest performed on 03/12/2024. History: Shortness of breath. Findings: A frontal view of the chest is compared to a prior study dated 08/20/2022. The cardiac silhouette is within normal limits for size. New airspace disease within the left lung is present with a left pleural effusion. Pulmonary vascular congestion is identified. There is tapering of the distal right clavicle which may be secondary to prior trauma or resection. Impression: Consolidation within the left lung which may be secondary to pneumonia or focal edema. Left pleuraleffusion. Pulmonary vascular congestion. WSN: [id number] Ordering Physician: Latricia Schulz Dictated By: Melody Carrillo MD Dictated Date/Time: 03/13/24 7:49 am Reviewed By: Melody Carrillo MD Signed By: Melody Carrillo MD Signed Date/Time: 03/13/24 7:49 am Transcribed By: COURTNEY Transcribed Date/Time: 03/13/24 7:48 am Vital Signs Most recent to oldest [Reference Range]: 1 2 3 Height 158 cm (03/21/24 8:15 AM) 158 cm (03/20/24 7:31 AM) 158 cm (03/19/24 7:37 PM) Weight 65.9 kg (03/13/24 4:00 AM) 65.7 kg (03/13/24 3:13 AM) Oxygen Saturation [94-100 %] 100 % (03/21/24 8:15 AM) 96 % (03/20/24 7:31 AM) 98 % (03/19/24 7:37 PM) Pulse Rate [55-90 bpm] 63 bpm (03/21/24 8:15 AM) 68 bpm (03/20/24 7:31 AM) 84 bpm (03/19/24 7:37 PM) Body Mass Index [18.5-24.99 kg/m2] 26.32 kg/m2 *H* (03/13/24 3:13 AM) Blood Pressure [90-138/55-84 mm Hg] 132/64mm Hg (03/21/24 8:15 AM) 104/64mm Hg (03/20/24 7:31 AM) 116/63mm Hg (03/19/24 7:37 PM) Respiratory Rate [16-30 br/min] 0 br/min *L* (03/21/24 1:18 PM) 18 br/min (03/21/24 11:38 AM) 18 br/min (03/21/24 8:35 AM) Temperature [96.8-100.4 DegF] 97.3 DegF (03/21/24 8:15 AM) 97.4 DegF (03/20/24 7:31 AM) 97.6 DegF (03/19/24 7:37 PM) Liters per Minute 1 L/min (03/13/24 7:27 AM) 1 L/min (03/13/24 4:00 AM) 2 L/min (03/13/24 3:13 AM) Mode of Delivery (Oxygen) Room air (03/21/24 8:15 AM) Room air (03/20/24 7:31 AM) Room air (03/19/24 7:37 PM) Blood pressure sites Arm, right (03/21/24 8:15 AM) Arm, right (03/20/24 7:31 AM) Arm, right (03/19/24 7:37 PM) Temperature Route Oral (03/21/24 8:15 AM) Oral (03/20/24 7:31 AM) Oral (03/19/24 7:37 PM) Dry Weight 65.7 kg (03/13/24 3:13 AM) Weight Obtained Via Bed scale (03/13/24 4:00 AM) Social History Social History Type Response Smoking Status Never (less than 100 in lifetime) entered on: 08/20/22 Sex Consult note * Niall Boyd DO: PERFORM, MODIFY, SIGN, VERIFY Event Display: Consultation Note Authored Date: [id number] Patient: LIZETH ROLLINS Age: 79 years Sex: Female : 1945 Associated Diagnoses: None Author: Niall Boyd DO Visit Information Ordering Physician: Yanick Zelaya MD Reason for Consult: mild dementia, schizotypal disorder, agitated, increased confusion Consulting Psychiatrist: Niall Boyd DO Chief Complaint: It's 2013 History of Present Illness HISTORY OF THE PRESENT ILLNESS: The patient is a poor historian and on exam was just repeating she wanted to leave. Majority of history is from [facility] review including Geriatric Medicine Consultation Report. 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 Per [facility] review and Geriatric Medicine note, There was also reports of urinary symptoms. Work-up revealed UTI and she was given oral antibiotics (Keflex-7 days)in the ED and discharged. She returned back to the ED 03/10/24 with similar/worsening symptoms, this time patient had reported to be eloping from the home wondering the streets at night wrapped in a blanket, and again there was concern that she was not at her baseline with respect to mood. She was briefly admitted for IV antibiotics which she received through 03/12/24. She wasevaluated by Psychiatry at that time who recommended to continue her outpatient medication regimen and made recommendations for management of her agitation with prn regimen. She did require use of medications for behavior and had received both olanzapine and quetiapine to address behaviors. She wasonce again discharged home with plan to complete her oral antibiotic course on 03/12/24. She returned again later that day again on 03/12/24 after she had refused to take her medications at home and her caregiver felt she could not manage. Head CT was repeated. Geriatric Medicine spoke with her listed radio time salesperson TRICIA ARIAS (Ashley) who provided collateral history. Ashley reports she is the patient's caregiver and that Lizeth lives in her home [facility]) along with Ashley's family (multiple adult children and teenager). Lizeth previously livednext-door to the family but was evicted from her home many years ago and that Ashley inherited Lizeth and now cares for her and serves as her RECREATIONAL LEADER. Ashley reports that she has conservatorship for Lizeth'sfinances but that there is no legal guardianship in place. Lizeth has been living with her since 2013. There are no family members in her life and her mother reportedly when she was young. I confirmed home medications with Ashley-she states she assists Lizeth with her home meds. Lizeth ambulates independently at baseline with no device. She needs some assistance with ADLs for completeness and Ashley assists with this. She follows with Dr. Mitali Blanton and apparently only goes once per year. She is not following with any Psychiatric provider. She used to go to an Adult Day program but this closed during Cov. She does not have any other formal services in place per Ashley. In addition, per Geriatric Medicine, she was diagnosed with mild dementia in the office about two years ago based on PCP evaluation (patient had become mildly forgetful) but per Ashley had not undergone any extensive testing. Had been started on low dose donepezil and has remained on this dose. Management And Budget Analyst reviewed this case and in fact this patient had completed conservatorship through the courts in 2007 naming Ashley as conservator. It also appeared at that time there was some determination bythe administrative law judge about the patient's capacity however guardianship was not pursued for unclear reasons (see SW notes). PAST PSYCHIATRIC AND TREATMENT HISTORY: Past hospitalizations: denies Past suicidality/self-injurious behaviours: denies Past treatment trials: paroxetine, gabapentin Past Medical History Allergies: Allergies Allergic Reactions (Selected) NKA Problem list All Problems allergic rhinitis / Confirmed COVID-19 / ICD-10-CM U07.1 / Confirmed Problem added by Discern Expert Dementia / SNOMED CT 66824791 / Confirmed HLD (hyperlipidemia) / SNOMED CT 39662378 / Confirmed Hypothyroidism / SNOMED CT 33977777 / Confirmed Osteoporosis / SNOMED CT 877240926 / Confirmed Schizotypal disorder / SNOMED CT 63354403 / Confirmed Current medications (Selected) Inpatient Medications Ordered Acetaminophen Tablet: 650 mg, Tablet, By Mouth, Every 4 hours, PRN for Pain , Mild, Temperature Greater than 100.5, Routine, 03/13/24 0:06:00 EDT Docusate Sodium Capsule: 100 mg, Capsule, By Mouth, 2 times a day, PRN for Constipation, Routine, 03/13/24 0:06:00 EDT Heparin Inj: 5,000 units, Injection, Subcutaneous Injection, 3 times a day, (DVT Prophylaxis), Routine, 03/13/24 14:00:00 EDT Keflex Capsule: 500 mg, Capsule, By Mouth, Every 6 hours, Indicated for: UTI Community Acquired, Routine, 03/13/24 9:00:00 EDT MiraLax Powder: 17 Gm, Powder, By Mouth, Daily for 14 days, Dissolve in 8 ounces of water., PRN forConstipation, Routine, 03/13/24 0:06:00 EDT, Stop date 03/27/24 0:05:00 EDT NaCL 0.9% Flush: 3 mL, Injection, IV Push, Every 8 hours, PRN for Line/Tube Patency, Routine, 03/13/24 0:06:00 EDT NaCL 0.9% Flush: 3 mL, Injection, IV Push, Every 8 hours, Routine, 03/13/24 1:00:00 EDT PARoxetine 20 mg oral tablet: 30 mg, Tablet, By Mouth, Daily, Routine, 03/13/24 12:32:00 EDT QUEtiapine 25 mg oral tablet: 25 mg, Tablet, By Mouth, Daily, PRN for Agitation, Routine, 03/13/24 8:33:00 EDT Robitussin DM Liquid: 10 mL, Syrup, By Mouth, Every 4 hours, PRN for Cough, Routine, 03/13/24 0:06:00 EDT Senna Tablet: 1 tablet, Tablet, By Mouth, 2 times a day, PRN for Constipation, Routine, 03/13/24 0:06:00 EDT Simethicone Tablet: 80 mg, Chew Tablet, Chew, 3 times a day, PRN for Gas, Routine, 03/13/24 0:06:00EDT Vitamin D3 1000 intl units oral tablet: 2,000 International_Units, Tablet, By Mouth, Daily, Routine, 03/13/24 9:00:00 EDT donepezil 5 mg oral tablet: 5 mg, Tablet, By Mouth, Daily at bedtime, Routine, 03/13/24 21:00:00 EDT gabapentin 400 mg oral capsule: 400 mg, Capsule, By Mouth, Daily in AM, Routine, 03/15/24 9:00:00 EDT gabapentin 400 mg oral capsule: 400 mg, Capsule, By Mouth, Once, Routine, 03/14/24 14:00:00 EDT, Stop date 03/14/24 14:00:00 EDT levothyroxine 0.025 mg oral tablet: 25 mcg, Tablet, By Mouth, Daily, Routine, 03/14/24 7:00:00 EDT pravastatin 20 mg oral tablet: 20 mg, Tablet, By Mouth, Daily, Routine, 03/13/24 9:00:00 EDT Prescriptions Prescribed QUEtiapine 25 mg oral tablet: 25 mg, 1, tablet, By Mouth, Daily, PRN, # 30 tablet, Refills 0, Tot. Refills 0, Maintenance, Agitation, 03/12/24 15:27:00 EDT, Route to Pharmacy Electronically, [email or web address] #[id number], Partial fill upon patient request if the prescription is for... cephalexin monohydrate 500 mg oral capsule: 1 capsule = 500 mg, By Mouth, 3 times a day, for 7 days, # 21 capsule, 0 Refills, Acute 03/16/24 9:36:00 EDT, 03/09/24 9:36:00 EDT, Capsule, [facility] #[id number], Partial fill upon patient request if the prescription is for a schedule II opioid... Documented Medications Documented Gabapentin: = 400 mg, By Mouth, Daily at bedtime, 0 Refills, Maintenance, 08/20/22 9:06:00 EST, Partial fill upon patient request if the prescription is for a schedule II opioid drug. Paroxetine: = 30 mg, By Mouth, Daily, 0 Refills, Maintenance, 08/20/22 9:11:00 EST, Partial fill upon patient request if the prescription is for a schedule II opioid drug. Pravastatin: = 20 mg, By Mouth, Daily, 0 Refills, Maintenance, 08/20/22 9:06:00 EST, Partial fill upon patient request if the prescription is for a schedule II opioid drug. Vitamin D3 50 mcg (2000 intl units) oral tablet, chewable: 0.5 tablet = 25 mcg, By Mouth, Daily, # 30 each, 0 Refills, Maintenance, 03/10/24 19:30:00 EDT, Chew Tablet, Partial fill upon patient request if the prescription is for a schedule II opioid drug. alendronate 70 mg oral tablet: 1 tablet = 70 mg, By Mouth, Every week, # 4 tablet, 0 Refills, Maintenance, 03/10/24 19:26:00 EDT, Tablet, Partial fill upon patient request if the prescription is for a schedule II opioid drug. donepezil 5 mg oral tablet: 5 mg, 1, tablet, By Mouth, Daily at bedtime, Refills 0, Maintenance, 03/09/24 7:59:00 EDT, Partial fill upon patient request if the prescription is for a schedule II opioid drug. levothyroxine 25 mcg (0.025 mg) oral capsule: 1 capsule = 25 mcg, By Mouth, Daily, # 30 capsule, 0 Refills, Maintenance, 03/10/24 19:27:00 EDT, Capsule, Partial fill upon patient request if the prescription is for a schedule II opioid drug. Social History Social History Alcohol Details: Use: Current. Frequency: 1-2 times per week. Substance Abuse Details: Use: Never. Tobacco Details: Use: Never (less than 100 in lifetime). . Family History The patient denies any family psychiatric history. Review of Systems A full ROS was completed and was negative with the exception of the pertinent positives in the HPI. Physical Examination Vital Signs Vitals : VITALS 03/14/2024 7:49 EDT Height 158 cm Temperature 97.4 DegF Temperature Route Oral Pulse Rate 79 bpm Respiratory Rate 18 br/min Systolic Blood Pressure 154 mm Hg H Diastolic Blood Pressure 91 mm Hg H Blood pressure sites Arm, right Mean Arterial Pressure 112 mm Hg Pulse Pressure 63 mm Hg Oxygen Saturation 100 % Mode of Delivery (Oxygen) Room air . Mental Status Exam: Mental Status Exam: General appearance: wearing hospital garb. Eye contact: WNL. Musculoskeletal: restless. Manner/behavior: frustrated. Speech: repetitive. Mood: irritable. Affect: mood congruent. Thought process/associations: disorganized. Thought content: perseverative. Delusions: none. Hallucinations: none. Suicidality/self-destructive behavior: none. Homicidality/violence: none. Reliability: impaired. Judgment: impaired. Insight: impaired. MSK Exam:?No cogwheeling or rigidity noted. Results Review 7 day results Labs & Documents Laboratory : LABORATORY 03/14/2024 7:17 EDT WBC 5.8 k/mm3 RBC 4.54 m/mm3 Hgb 13.1 Gm/dL Hct 41.7 % MCV 91.9 femtoliters MCH 28.9 pg MCHC 31.4 g/dL L Platelet Count 240 k/mm3 RDW-SD 48.3 femtoliters H MPV 9.7 femtoliters Nucleated RBC (Automated) 0.0 #/100 WBC'S Abs. 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 There is concern for primary delirium due to UTI, superimposed on mild dementia, as evident by the acute onset if symptoms coinciding with the infection. In contrast, Schizotypal is a chronic type ofpersonality disorder that does not present with acute changes in mental status in this manner. DSM- 5 Diagnoses: Delirium, multifactorial Dementia, Mild per history Schizotypal personality disorder per history RECOMMENDATIONS: 1. Agree with Geriatric Medicine recommendations for management of delirium and for restarting homemedications to r/o potential withdrawal from paxil and/or gabapentin. 2. For agitation related to delirium: -Start Vistaril 50 mg PO Q6H PRN anxiety and Trazodone 50 mg PO daily at bedtime PRN insomnia. Can also utilize Seroquel 50 mg PO Q4H PRN agitation and/or Zyprexa 5 mg and Benadryl 50 mg PO/IM Q6H PRN agitation depending on severity of symptoms. 3. Sometimes [...] likely delirium, IPLOC is likely not warranted. Thank you for allowing us to participate in this patient's care. Psychiatry will sign off at this time. Please feel free to contact the Psychiatry consult service [phone] with any questions or concerns. * Leslie Camarena: PERFORM, MODIFY, MODIFY Event Display: Consult Authored Date: [id number] Patient: ??LIZETH ROLLINS ? Age:??79 Years?Sex:??Female?:??1945?? Subjective Reason for consult:?? Delirium ?? Referring physician:?? [place] ?? Source of Information/reliability:?? Chart, staff, Caregiver/RECREATIONAL LEADER ?? History of Present Illness:?? 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 There was also reports of urinary symptoms.?? Work-up revealed??UTI and she was given oral antibiotics (Keflex-7 days)in the ED and discharged.?? She returned back to the ED 03/10/24 with similar/worsening??symptoms, this time patient had reported to be eloping from the home wondering the streets at night wrapped in a blanket, and again there was concern that she was not at her baseline with respect to mood.?She was briefly admitted for IV antibiotics which she received through 03/12/24.?? She was evaluated by Psychiatry at that time who recommended to continue her outpatient medication regimen and maderecommendations for management of her agitation with prn regimen.?? She did require use of medicatio ns for behavior??and had received both olanzapine and quetiapine to address behaviors.?She??was once again discharged home with plan to complete??her oral antibiotic course on 03/12/24.?? She returned again later that day again on 03/12/24 after she had refused to take her medications at home and her caregiver felt she could not manage.?? Head CT was repeated.?? She was re-admitted and Geriatrics Consult requested.? Patient seen at the bedside.?? She was repeatedly asking to leave and was searching through her pocketbook during my visit looking for her wallet.?? She was a poor historian.?? She stated she lived alone in her??one home and states she does not need (or have) any help in the home.?? She could not name her PCP or any medications she was taking.? I spoke with her listed radio time salesperson??TRICIA ARIAS (Ashley) who provided collateral history.?Ashley reports she is the patient's caregiver and that Lizeth lives in her home ([place]) along with Ashley's family (multiple adult children and teenager).?? Lizeth previously lived next-door to the family but was evicted from her home many years ago and that Ashley inherited Lizeth and now cares for her and serves as her RECREATIONAL LEADER.?? Ashley reports that she has conservatorship for Lizeth's finances but that there is no legal guardianship in place.?Lizeth has been living with her?? since 2013.?? There are no family members??in her life and her mother reportedly when she was young.?? I confirmed home medications with Ashley-she states she assists Lizeth with her home meds.? Lizeth ambulates independently at baseline with no device.?? She needs some assistance with ADLs forcompleteness and Ashley assists with this.?She follows with Dr. Mitali Blanton and apparently onlygoes once per year.?? She is not following with any Psychiatric provider.?? She used to go to an Adult Day program but this closed during Cov.?? She does not have any other formal services in placeper Ashley.?? Apparently, she was diagnosed??with??mild dementia in the office about two years ago based on PCP evaluation??(patient had become mildly forgetful)??but per Ashley had not undergone any extensive testing.?? Had been started on low dose donepezil and has remained on this dose.? Management And Budget Analyst reviewed??this??case??and in fact this patient had completed conservatorship through the courts in 2007 naming Ashley as conservator.? It also appeared at that time there was some determination by the administrative law judge about the patient's capacity ??however guardianship was not pursued for unclear reasons (see SW notes).? Called PCP office for records.?? Awaiting call back, they confirmed they do not have HCP document. ? Review of Systems Very limited as the patient was not cooperative, stating there is nothing wrong with her, asking karolyn. Objective Vitals & Measurements T:??97.1?F?? TMIN:??97.1?F?? TMAX:??98.2?F?? HR:??71??(Peripheral)?? RR:??16?? BP:??117/59?? SpO2:??95%?? WT:??65.9??kg?? Physical Exam Poor eye contact Irritable?? don't call me Ma'am Clutching her purse Impulsive, attempting to climb out of bed over rails Impulsive with gait Declines much of exam ?? Lab Results 50,000-100,000 colony forming units per mL Cefazolin < EQ 4 ug/mL Cefazolin with an BENJAMÍN < EQ 16 predicts susceptibility to the oral agents cefaclor, cefdinir, cefpodoxime, cefprozil, cefuroxime, cephalexin, and loracarbef when used for therapy of uncomplicated urinary tract infections due to E. coli, Klebsiella pneumoniae, and Proteus mirabilis.CORRECTED ON 03/11 AT 1606: PREVIOUSLY REPORTED Gram negative rods ? Event Name?? Event Result?? Date/Time?? Abs. Baso 0 k/mm3 03/12/24 Abs. Eo 0 k/mm3 03/12/24 Abs. Imm Gran 0 k/mm3 03/12/24 Abs. Lymph 1.2 k/mm3 03/12/24 Abs. [place] 0.5 k/mm3 03/12/24 Abs. Neut 6.8 k/mm3 03/12/24 Abs. NRBC 0 k/mm3 03/12/24 AG Ratio 1.5 03/12/24 Albumin 3.6 Gm/dL 03/12/24 Albumin, Urine NEGATIVE 03/12/24 Alkaline Phosphatase 131 units/L??High 03/12/24 ALT (SGPT) 32 units/L 03/12/24 Anion Gap 14 03/12/24 Appear/Color, Urine COLORLESS 03/12/24 AST (SGOT) 24 units/L 03/12/24 Baso % 0.3 % 03/12/24 Bicarbonate Level 19 mmol/L??Low 03/12/24 Bilirubin, Total 0.4 mg/dL 03/12/24 Bilirubin, Urine NEGATIVE 03/12/24 BUN 12 mg/dL 03/12/24 Calcium 8.9 mg/dL 03/12/24 Chloride 109 mmol/L??High 03/12/24 Clarity CLEAR 03/10/24 Creatinine-Blood 0.8 mg/dL 03/12/24 Eos % 0.5 % 03/12/24 Est Creatinine Clearance 44.03 mL/min 03/13/24 Estimated GFR Creatinine 74 ML/MIN/1.73 M2 03/12/24 Glucose Level 97 mg/dL 03/12/24 Glucose, Urine NEGATIVE 03/12/24 Hct 45.4 % 03/12/24 Hemoglobin, Urine NEGATIVE 03/12/24 Hgb 14.8 Gm/dL 03/12/24 Hold Blue Top SPECIMEN DISCARDED AFTER 4 HOURS. 03/10/24 Hold Green Top SPECIMEN DISCARDED AFTER 1 WEEK 03/11/24 Hold Lavender Top SPECIMEN DISCARDED AFTER 24 HOURS. 03/11/24 Hold Urine Culture Testing available 48 hours from time of collection. 03/12/24 Imm Gran 0.3 % 03/12/24 Ketones, Urine NEGATIVE 03/12/24 Leukocyte, Urine NEGATIVE 03/12/24 Lipase 20 units/L 03/12/24 Lymph % 14.4 %??Low 03/12/24 MCH 28.8 pg 03/12/24 MCHC 32.6 g/dL??Low 03/12/24 MCV 88.3 femtoliters 03/12/24 [place] % 6.1 % 03/12/24 MPV 9.8 femtoliters 03/12/24 Mucus SLIGHT 03/12/24 Neut % 78.4 %??High 03/12/24 Nitrite, Urine NEGATIVE 03/12/24 Nucleated RBC (Automated) 0 #/100 WBC'S 03/12/24 pH, Urine 6.5 03/12/24 Platelet Count 290 k/mm3 03/12/24 Potassium 4.8 mmol/L 03/12/24 Protein, Total 6 Gm/dL??Low 03/12/24 RBC 5.14 m/mm3 03/12/24 RBC's, Urine <1 03/12/24 RDW-SD 45.4 femtoliters 03/12/24 Sodium 142 mmol/L 03/12/24 Specific [place], Urine 1.008 03/12/24 Squamous Epith 1 /HPF 03/12/24 TSH 3.33 uIU/mL 03/12/24 Urine Culture Isolate 1 Comment 03/10/24 Urine Culture Results Final report 03/10/24 Urine Culture Specimen Source URINE 03/10/24 Urobilinogen NORMAL 03/12/24 Vitamin B12 Level 451 pg/mL 03/11/24 WBC 8.6 k/mm3 03/12/24 WBC's, Urine <1 03/12/24 ? Diagnostic Results (03/09/2024 08:[address] Head/Brain W/O Contrast) COMPARISON: None. ?? FINDINGS:? BRAIN and EXTRA-AXIAL SPACES: No parenchymal hemorrhage, [...] [1] ?? * Final Report * ?? ECG 12-Lead Please click on pdf link to open report ?? 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 She has been seen by Psychiatry 03/12/24 who made recommendations including??continuation of her home Psychiatricregimen. ?? Recommendations: ?? Please resume home medications including gabapentin 400 mg in the am (takes in the morning per homeaide) and Paroxetine. Please confirm last BM and begin scheduled bowel regimen. Please see Psychiatry recommendations for??prn medication regimen. Recommend that she follow up with PCP to discuss/clarify whether or not she will need guardianship pursued??in the community-our SW confirmed that she does not have this and there??does not appear to??be any HCP.?? She would also benefit from re-engaging with Psychiatry in the community. CM is connecting her to [facility]??Program through [facility] with PT Awaiting PCP records follow intake ? MIND #Acute hyperactive Delirium - likely multifactorial [...] patient's or others' safety due to patient's delirium-see Psychiatry notes - most recent QTC?? 430 - Please avoid benzos, antihistamines, anticholinergics ? MATTER MOST #Advance Directives Health Care Proxy:?? NONE ? #Discharge Planning - Please f/u case management for placement and arranging services.? Anticipate home??however herbehavior must be under better control per ASHLEY. ?? Thank you for referral, please page Geriatrics Inpatient Consult Service if we can provide further assistance in patient care. ? PLEASE NOTE: This note was created in part, with voice recognition software.?? Every effort was made to check??this document for accuracy however, occasionally there are unintended errors that resultfrom the use of this technology including typographical errors and other formatting irregularities.?? For clarification about this note's content,??please contact me directly.? Medications Inpatient Acetaminophen Tablet, 650 mg, By Mouth, Every 4 hours, PRN Docusate Sodium Capsule, 100 mg= 1 capsule, By Mouth, 2 times a day, PRN donepezil 5 mg oral tablet, 5 mg, By Mouth, Daily at bedtime Heparin Inj, 5000 units= 1 mL, Subcutaneous Injection, 3 times a day Keflex Capsule, 500 mg, By Mouth, Every 6 hours levothyroxine 0.025 mg oral tablet, 25 mcg, By Mouth, Daily MiraLax Powder, 17 Gm= 1 pack/packet, By Mouth, Daily, PRN NaCL 0.9% Flush, 3 mL, IV Push, Every 8 hours NaCL 0.9% Flush, 3 mL, IV Push, Every 8 hours, PRN Neurontin 400 mg oral capsule, 400 mg, By Mouth, Daily at bedtime PARoxetine 20 mg oral tablet, 30 mg, By Mouth, Daily pravastatin 20 mg oral tablet, 20 mg, By Mouth, Daily QUEtiapine 25 mg oral tablet, 25 mg, By Mouth, Daily, PRN Robitussin DM Liquid, 10 mL, By Mouth, Every 4 hours, PRN Senna Tablet, 8.6 mg= 1 tablet, By Mouth, 2 times a day, PRN Simethicone Tablet, 80 mg, Chew, 3 times a day, PRN Vitamin D3 1000 intl units oral tablet, 2000 International_Units, By Mouth, Daily Home alendronate 70 mg oral tablet, 70 mg= 1 tablet, By Mouth, Every week cephalexin monohydrate 500 mg oral capsule, 500 mg= 1 capsule, By Mouth, 3 times a day donepezil 5 mg oral tablet, 5 mg= 1 tablet, By Mouth, Daily at bedtime Gabapentin, 400 mg, By Mouth, Daily at bedtime levothyroxine 25 mcg (0.025 mg) oral capsule, 25 mcg= 1 capsule, By Mouth, Daily Paroxetine, 30 mg, By Mouth, Daily Pravastatin, 20 mg, By Mouth, Daily QUEtiapine 25 mg oral tablet, 25 mg= 1 tablet, By Mouth, Daily, PRN Vitamin D3 50 mcg (2000 intl units) oral tablet, chewable, 25 mcg= 0.5 tablet, By Mouth, Daily Total Time Spent I personally spent a total of _142 minutes, including both jons-do-abhu and sxl-donk-vm-face time on the date of the encounter, addressing the above diagnoses.D/w CM, SW, RN, PT paged recs to MD. [1]??CT Head/Brain W/O Contrast; Kevin Mariee MD 03/09/2024 08:52 EDT [2]??12 Lead ECG; Rosemary Cohn DO 03/12/2024 21:40 EDT Admission evaluation note * Rosey Ag MD: PERFORM, MODIFY Event Display: Admission Note Authored Date: [id number] Patient: ??LIZETH ROLLINS ? Age:??79 Years?Sex:??Female?:??1945?? Chief Complaint/Reason for Consultation from home - dx UTI on abx. refusing meds - becoming increasingly altered a& verbally / physically agressive towards family. believes her daughter is a dirty rat. pt spitting & hitting at times, attempting to hug ems at times. hx of schizoeffective. early History of Present Illness 79F/hx dementia, seen at [facility] today for agitation but dc'd. +UTI. Given zyprexa, alana, and ativan.Update: SInce 2mg Ativan, patient has been hypotensive with systolics in 80s. MAPs > 60 and arousable to stimuli, will order tele for now ?? Patient was seen and examined in AM at bedside. 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 patient was admitted a few days ago at [facility] for altered mental status and found to have a UTI.?she was treated with IV antibiotics and then discharged home earlier??yesterday??with Keflex. ??On reviewing the documentation it appeared that she was still having intermittent agitation and received IM medication prior to being discharged home.Per EMS, the patient was agitated at her home, refusing to take her medication. ?? Patient got 2 mg of??IV Ativan and 5 mg IM Zyprexa overnight in the ER.?? Very sleepy at the time of my evaluation.?? Blood pressure dropped??overnight in the ER. ??However during my evaluation??blood pressure??improved to 147/82.?? Patient??woke up??after calling them??and able to??tell??her birthday and she is in the hospital??and falls back to sleep.?? Denies any complaints. Called patient's??noxious weeds and pest inspector Tricia I spoke to her over phone. As per Tricia??patient was very pleasant??before last??hospitalization at [facility].?? Since that admission she is agitated.?? She was discharged yesterday??from hospital and again became agitated at home.?? So??noxious weeds and pest inspector??called EMS to bring her to the hospital.?? Floor Care Technician denies any concern for anaspiration??or swallow issue. Review of Systems A full review of system completed and negative??except??above.?? However??due to patient's sleepiness, delirium??not reliable Objective Vital Signs?? Temperature: 97.7 DegF (03/13/24 07:27:00) Temperature Route: Oral (03/13/24 07:27:00) Pulse Rate:??53 bpm??Low (03/13/24 07:27:00) Respiratory Rate: 16 br/min (03/13/24 07:27:00) Systolic Blood Pressure:??147 mm Hg??High (03/13/24 07:27:00) Diastolic Blood Pressure: 82 mm Hg (03/13/24 07:27:00) Blood pressure sites: Arm, left (03/13/24 07:27:00) Mean Arterial Pressure: 104 mm Hg (03/13/24 07:27:00) Pulse Pressure: 65 mm Hg (03/13/24 07:27:00) Oxygen Saturation: 100 % (03/13/24 07:27:00) Liters per Minute: 1 L/min (03/13/24 07:27:00) Mode of Delivery (Oxygen): Nasal cannula (03/13/24 07:27:00) Early Warning Score: 2 (03/13/24 07:33:37) ? Physical Exam Constitutional: Sleepy, in no acute distress. Head: Normocephalic. ?? Eyes: Pupils are equal, round and reactive to light. ?? Ear, Nose and Throat: mucous membranes moist. Ears and nose - no obvious deformities. Trachea midline. ?? Neck: Supple, Full range of motion.No JVD or bruits. Respiratory:??Clear to auscultation. No wheezing or rhonchi.??No use of accessory muscles. No tactile fremitus.?? Cardiovascular:??PMI not visible. S1 S2 regular. No murmurs, rubs or gallops. Gastrointestinal:??Abdomen soft, non-tender, non-distended. Normal bowel sounds. No pulsatile mass.No hepatosplenomegaly. Genitourinary:??No costovertebral angle tenderness. Extremities: No lower extremity pitting edema. No cyanosis or clubbing. Neurologic:??Sleepy??x??able to tell??birthday??and??she is at hospital, Speech normal, no facial droop. No focal neurological deficits. Moves all extremities spontaneously. Sensation intact bilaterally.??Flexor plantar response Skin:??No rash.?? Musculoskeletal:??No gross deformities on inspection. Normal range of motion in hips, knees, ankles. Gait?? Heme/Lymphatics:??Palpation of neck reveals no swelling or tenderness of neck nodes.?? Psychiatric: Normal mood and affect. Assessment/Plan Diagnoses Agitation ??(R45.1) Dementia ??(F03.90) HLD (hyperlipidemia) ??(E78.5) Hypothyroidism ??(E03.9) Pneumonia ??(J18.9) Pulmonary vascular congestion ??(R09.89) Schizotypal disorder ??(F21) Urinary tract infection ??(N39.0) ? Agitation (R45.1) ?Grouped with??Urinary tract infection (N39.0),??Dementia (F03.90) ? Continue antibiotic treatment as previously prescribed??to complete course.?? Repeat urine clean Low-dose??quetiapine??25 mg??daily as needed for agitation.? Delirium precautions Patient was requiring??restraints.?? Patient just had a??CT head done??03/09,??no??focal??deficit??today on exam Geriatric consult??requested??for ?? Pulmonary vascular congestion (R09.89):??. ??Pneumonia (J18.9):??.?? To rule out Chest x-ray showed consolidation within the left lung which may be secondary to pneumonia or focal edema. Left pleural effusion. Pulmonary vascular congestion. No fever.?? Floor Care Technician??denied??any aspiration episode or coughing,??she eats regular food Ordered??echo Can consider swallow evaluation Monitor fever, WBC count??and will monitor off??antibiotics for now ?? Schizotypal disorder (F21):?? home meds which include gapapentin??and paroxetine ?? Hypothyroidism (E03.9):??Continue Synthroid ?? HLD (hyperlipidemia) (E78.5):??Continue pravastatin ?? VTE Prophylaxis:??.?? Heparin subcu ?? Discharge Planning:??.?? Pending??hospital course ?? Ongoing Medical Necessity:??.?? Delirium ?? Code Status:??.?? Full code ,??noxious weeds and pest inspector is not??sure about??her CODE STATUS.?Order Code Status:??Code Status Ordered ? Histories Allergies Allergies ?(Active and Proposed [...] than 100 in lifetime). ? Family History No Family History documented. [...] mg oral tablet)?25?Milligram?1?tablet?By Mouth?Daily?as needed?for 30?Days?Agitation ? Results Recent Labs BACTERIOLOGY Urine Culture Results Final report ()?? 03/10/2024 16:00 ?? BLOOD COUNT & DIFF WBC 8.6 k/mm3 ()?? 03/12/2024 21:57 RBC 5.14 m/mm3 ()?? 03/12/2024 21:57 Hgb 14.8 Gm/dL ()?? 03/12/2024 21:57 Hct 45.4 % ()?? 03/12/2024 21:57 MCV 88.3 femtoliters ()?? 03/12/2024 21:57 MCH 28.8 pg ()?? 03/12/2024 21:57 MCHC 32.6 g/dL (Low)?? 03/12/2024 21:57 Platelet Count 290 k/mm3 ()?? 03/12/2024 21:57 RDW-SD 45.4 femtoliters ()?? 03/12/2024 21:57 MPV 9.8 femtoliters ()?? 03/12/2024 21:57 Nucleated RBC (Automated) 0.0 #/100 WBC'S ()?? 03/12/2024 21:57 Abs. NRBC 0.0 k/mm3 ()?? 03/12/2024 21:57 Abs. Neut 6.8 k/mm3 ()?? 03/12/2024 21:57 Abs. Lymph 1.2 k/mm3 ()?? 03/12/2024 21:57 Abs. [place] 0.5 k/mm3 ()?? 03/12/2024 21:57 Abs. Eo 0.0 k/mm3 ()?? 03/12/2024 21:57 Abs. Baso 0.0 k/mm3 ()?? 03/12/2024 21:57 Neut % 78.4 % (High)?? 03/12/2024 21:57 Lymph % 14.4 % (Low)?? 03/12/2024 21:57 [place] % 6.1 % ()?? 03/12/2024 21:57 Eos % 0.5 % ()?? 03/12/2024 21:57 Baso % 0.3 % ()?? 03/12/2024 21:57 Imm Gran 0.3 % ()?? 03/12/2024 21:57 Abs. Imm Gran 0.0 k/mm3 ()?? 03/12/2024 21:57 ?? CHEM GENERAL Sodium 142 mmol/L ()?? 03/12/2024 21:57 Potassium 4.8 mmol/L ()?? 03/12/2024 21:57 Chloride 109 mmol/L (High)?? 03/12/2024 21:57 Bicarbonate Level 19 mmol/L (Low)?? 03/12/2024 21:57 Anion Gap 14 ()?? 03/12/2024 21:57 Glucose Level 97 mg/dL ()?? 03/12/2024 21:57 BUN 12 mg/dL ()?? 03/12/2024 21:57 Creatinine-Blood 0.80 mg/dL ()?? 03/12/2024 21:57 Estimated GFR Creatinine 74 ML/MIN/1.73 M2 ()?? 03/12/2024 21:57 Calcium 8.9 mg/dL ()?? 03/12/2024 21:57 Protein, Total 6.0 Gm/dL (Low)?? 03/12/2024 21:57 Albumin 3.6 Gm/dL ()?? 03/12/2024 21:57 AG Ratio 1.5 ()?? 03/12/2024 21:57 Alkaline Phosphatase 131 units/L (High)?? 03/12/2024 21:57 Lipase 20 units/L ()?? 03/12/2024 21:57 AST (SGOT) 24 units/L ()?? 03/12/2024 21:57 ALT (SGPT) 32 units/L ()?? 03/12/2024 21:57 Bilirubin, Total 0.4 mg/dL ()?? 03/12/2024 21:57 ?? ENDOCRINE/TUMOR MARKER TSH 3.33 uIU/mL ()?? 03/12/2024 21:57 ?? UA/URINALYSIS Appear/Color, Urine COLORLESS ()?? 03/12/2024 23:46 Specific [place], Urine 1.008 ()?? 03/12/2024 23:46 pH, Urine 6.5 ()?? 03/12/2024 23:46 Albumin, Urine NEGATIVE ()?? 03/12/2024 23:46 Glucose, Urine NEGATIVE ()?? 03/12/2024 23:46 Ketones, Urine NEGATIVE ()?? 03/12/2024 23:46 Bilirubin, Urine NEGATIVE ()?? 03/12/2024 23:46 Hemoglobin, Urine NEGATIVE ()?? 03/12/2024 23:46 Nitrite, Urine NEGATIVE ()?? 03/12/2024 23:46 Leukocyte, Urine NEGATIVE ()?? 03/12/2024 23:46 Urobilinogen NORMAL mg/dL ()?? 03/12/2024 23:46 WBC's, Urine <1 /HPF ()?? 03/12/2024 23:46 RBC's, Urine <1 /HPF ()?? 03/12/2024 23:46 Squamous Epith 1 /HPF ()?? 03/12/2024 23:46 Mucus SLIGHT /LPF ()?? 03/12/2024 23:46 ?? URINE OTHER Est Creatinine Clearance 44.03 mL/min ()?? 03/13/2024 04:13 Urine Culture Isolate 1 Comment ()?? 03/10/2024 16:00 ? EKG study * Event Display: ECG 12-Lead Authored Date: Please click on pdf link to open report * Event Display: ECG 12-Lead Authored Date: Ventricular Rate: 83 BPM Atrial Rate: 83 BPM P-R Interval: 164 ms QRS Duration: 72 ms Q-T Interval: 366 ms QTC Calculation(Bazett): 430 ms P [place]: 79 degrees R [place]: 14 degrees T [place]: 42 degrees Sinus rhythm with marked sinus arrhythmia Nonspecific ST abnormality Abnormal ECG No previous ECGs available Confirmed by ROSEMARY COHN MD ([id number]) on 03/13/2024 8:20:46 AM [place]: ROSEMARY COHN MD Heart * Event Display: Echocardiogram - Complete Authored Date: Transthoracic Echocardiography Report (TTE) Patient Demographics Patient Name LIZETH ROLLINS Date of Study 03/13/2024 Corporate Gender Female Facility Race Ethnicity Date of 1945 Height: 62.2 inches Age 79 year(s) Weight: 145.51 pounds Accession Number [id number] BSA: 1.67 m2 Room Number [id number] BMI: 26.44 kg/m2 Referring Physician Kimberli Currie MD Interpreting Physician Elena Hernandez MD Analytical Chemistry Teacher Bialas RDCS [place] Indications Heart failure. Clinical History Congestive heart failure. Study Data Type of Study TTE procedure:Echo Complete-Doppler, Colorflow, M-Mode. Study Date03/13/2024 Start Time: 02:30 PM Study Location: [facility] Adult Echo Study Status: Bedside Patient Status: Routine Technical Quality: Adequate Blood Pressure:117/59 mmHg EKG: Within normal limits 2D Measurements LV Diastolic Dimension: 3.4 cm LV Systolic Dimension: 2.6 cm LV Septum Diastolic: 0.8 cm LV PW Diastolic: 0.7 cm AO Root Dimension: 3.3 cm LA ESV (BP):35.2 ml LA ESV Index: 21 ml/m2 LVOT: 2 cm Ascending Aorta:3.1 cm Doppler Measurements MV Peak E-Wave: 57.6 cm/s MV Peak A-Wave: 64.6 cm/s MV E/A Ratio: 0.89 MV Deceleration Time: 306 msec E' Septal Velocity: 4.57 cm/s E' Lateral Velocity: 5.11 cm/s E/Med E':12.25647 E/Lat E':11.69938 Cardiac Anatomy Left Ventricle/Interventricular Septum The left ventricular size is normal. Left ventricular wall thickness is normal. The LV systolic function is mildly reduced . The left ventricular ejection fraction is probably in the 40-45 % range. There is dyskinesis of the inferolateral wall. Suboptimal endocardial definition, patient did not receive IV Definity. Grade I, mild diastolic dysfunction with impaired LV relaxation, which may be normal for the patient's age. Left Atrium/Interatrial Septum The left atrium is grossly normal in size. Aortic Valve The aortic valve is trileaflet . The aortic valve appears mildly thickened. There is mild aortic regurgitation. The aortic valve leaflet opening is normal . Mitral Valve The mitral valve appears mildly thickened. There is mild mitral regurgitation. Aorta The ascending aorta and aortic root are normal in size. Right Ventricle The right ventricular size and function appears grossly normal. Right Atrium The right atrium is normal in size. Pulmonic Valve The pulmonic valve is functionally normal. Tricuspid Valve The tricuspid valve is poorly visualized. The tricuspid valve is grossly normal. Pumonary Artery An accurate pulmonary artery pressure could not be obtained. Venous Structures The inferior vena cava is poorly visualized. Pericardium/Extracardiac There is no significant pericardial effusion. Summary Technically difficult study. Definity not used. The left ventricular size is normal. Left ventricular wall thickness is normal. The LV systolic function is mildly reduced . The left ventricular ejection fraction is probably in the 40-45 % range. There is dyskinesis of the inferolateral wall. Suboptimal endocardial definition, patient did not receive IV Definity. Grade I, mild diastolic dysfunction with impaired LV relaxation, which may be normal for the patient's age. There is mild aortic regurgitation. The right ventricular size and function appears grossly normal. Comparison No prior study available for comparison. Signature * Event Display: Echocardiogram - Complete Authored Date: Hospital Progress note * Elina Hernandez RN: PERFORM, SIGN, VERIFY Event Display: Progress Note Hospital Authored Date: Patient: LIZETH ROLLINS Age: 79 years Sex: Female : 1945 Associated Diagnoses: None Author: Elina Hernandez RN Findings Problem Related to Alteration in Neurological : Alteration in Neurological Function/new 03/21/2024 11:00 EDT Alteration in Neuro status Related to Alzheimer's/Dementia, Other: delirium Goals & Outcomes, Neurological Lab studies/diagnostic tests within pt specific limits, Pt is safe with transfers & activities, Pt will be discharged without infection, Pt will be hemodynamically stable, Pt will be Neurologically stable, Pt will become pain free with appropriate intervention, Pt will maintain intact skin integrity, Pt will remain free from injury, Pt will resume/maintain ad equate cardiac output, Pt will state importance of adhering to medication regime, Pt/caregiver willreceive psychosocial support as needed, Pt/caregiver will state understanding of rehab plan, Pt/caregiver will state understanding of plan/goals of care, Pt/caregiver will state understanding of the D/C plan Interventions, Neurological Assess/monitor neurologic status, Assess/monitor VS per unit standards & prn, Provide emotional support to Pt/caregiver, Teach pt/caregiver discharge plan & followup care Goals/Interventions, Neurological Yes Neurological, Problem Start 03/13/2024 4:35 Reviewed plan with, Neurological Patient, Other: caregiver Patient Progression, Neurological Pt progressing according to plan . Nursing Data Vital Signs : VITAL SIGNS SECTION 03/21/2024 8:15 EDT Temperature 97.3 DegF Temperature Route Oral Pulse Rate 63 bpm Respiratory Rate 18 br/min Systolic Blood Pressure 132 mm Hg Diastolic Blood Pressure 64 mm Hg Blood pressure sites Arm, right Mean Arterial Pressure 87 mm Hg Pulse Pressure 68 mm Hg Oxygen Saturation 100 % Mode of Delivery (Oxygen) Room air . Evaluation Pt [id number] from the [facility][1] at 1428 via wheelchair accompanied by her noxious weeds and pest inspector, Tricia, who verbalized understanding of discharge paperwork/instructions. Pt's personal belongings given to the noxious weeds and pest inspector. . * Janette Albarran RN: PERFORM, SIGN, VERIFY Event Display: Progress Note Hospital Authored Date: Patient: LIZETH ROLLINS Age: 79 years Sex: Female : 1945 Associated Diagnoses: None Author: Janette Albarran RN Findings Problem Related to Alteration in Genitourinary : Alteration in Genitourinary Function/new 03/21/2024 2:00 EDT Alteration in Status Related to UTI Goals & Outcomes, Genitourinary Pt will achieve normal/improved fluid balance, Pt will maintainadequate GI function appropriate for pt, Pt will maintain adequate function appropriate for pt, Pt will maintain normal fluid balance, Pt will resume normal pattern of elimination, Pt/caregiver will state understanding of self-care skills Interventions, Assess/monitor/maintain Genitourinary status, Assist & encourage pt with meticulous naheed care, Encourage PO fluid intake as allowed by diet, Assess/monitor effects of antibiotics, Assess/monitor s/s of urinary tract infection Goals/Interventions, Genitourinary Yes Genitourinary, Problem Start 03/21/2024 2:12 Reviewed Plan with, Genitourinary Patient Patient Progression, Genitourinary Plan Initiation Genitourinary, Problem Ongoing Yes . Narrative/Incidental Pt a/o x2. Pt refusing vital signs. Lungs clear on RA. No edema noted. Mixed continence. Incontinence care provided prn. Last bm 03/20. Skin intact. Pt ambulates independently within room. Pt slept well throughout shift. Bed in lowest, locked position with bed alarm engaged. Frequent rounding preformed. Call lopez within reach at all times. . * Kaylan Ramos: PERFORM Event Display: Progress Note Hospital Authored Date: [id number] Patient: ??LIZETH ROLLINS ? Age:??79 Years?Sex:??Female?:??1945?? Subjective 79 year old female seen and examined at bedside. Patient is agitated and anxious asking for her shirt to go home. She keeps repeating her name and showing her ID. Patient is asking if Ashley (caregiver) and if she can go home with her. Patient is able to identify herself and state she is at hospital in [place] but is unable to state date/time. Patient??keeps talking non-stop about different??topics in a disorganized manner,??unable to follow a story line.??Patient denies chest pain, shortness of breath or any discomfort/pain. ?? Review of Systems Negative except as state above Objective Vital Signs?? Temperature: 97.4 DegF (03/20/24 07:31:00) Temperature Route: Oral (03/20/24 07:31:00) Pulse Rate: 68 bpm (03/20/24 07:31:00) Respiratory Rate: 20 br/min (03/20/24 12:59:00) Systolic Blood Pressure: 104 mm Hg (03/20/24 07:31:00) Diastolic Blood Pressure: 64 mm Hg (03/20/24 07:31:00) Blood pressure sites: Arm, right (03/20/24 07:31:00) Mean Arterial Pressure: 77 mm Hg (03/20/24 07:31:00) Pulse Pressure: 40 mm Hg (03/20/24 07:31:00) Oxygen Saturation: 96 % (03/20/24 07:31:00) Mode of Delivery (Oxygen): Room air (03/20/24 07:31:00) Early Warning Score: 2 (03/20/24 12:59:51) ? Precautions Aspiration Precautions ? Physical Exam Constitutional:??alert and awake Mental Status: Confused Head: Normocephalic. Respiratory: Unable to auscultate lungs, patient agitated. Patient is able to speak in full sentences without use of accessory muscles. Cardiovascular: S1 S2 regular. No murmurs, rubs or gallops. Gastrointestinal: Abdomen soft, non-tender, non-distended. Normal bowel sounds. Neurologic: Confused,?? moving all extremities. no focal deficits Psychiatric: confused _ 72 Hour Antibiotic History Stopped Antibiotics Stop Date/Time Last Administered First Administered Cephalexin??500 mg, By Mouth, Every 6 hours 03/20/2024 13:56 03/20/2024 08:04 03/13/2024 09:33 ? Results Recent Labs No labs resulted between 03/19/2024 00:00 and 03/20/2024 16:28? Assessment/Plan Chief Complaint: from home - dx UTI on abx. refusing meds - becoming increasingly altered a& verbally / physically agressive towards family. believes her daughter is a dirty rat. pt spitting & hitting at times, attempting to hug ems at times. hx of schizoeffective. early ?? Diagnoses Agitation ??(R45.1) Schizotypal disorder ??(F21) Dementia ??(F03.90) On Keflex for possible UTI. Geriatric consulted. Continue??gabapentin. Patient takes gabapentin 400mg??AM. Patient is very confused agitated. Pych consulted??who recommended trazodone 50 mg??at bedtime as needed for insomnia,??Seroquel 50 mg every 4 hours as needed for agitation. ??EKG no QT prolongation. Geriatric is following??geriatric recommended on date 03/15/2024??gabapentin??200-200-400 mg??daily.?? Add Seroquel??12.5 mg twice daily scheduled. Delirium precaution ordered. Avoid restraint. Frequent reorientation. ?? 03/16: increased the dose of the seroquel to 25 mg bid, EKG no QT prolongation ?? 03/17: Doing better.?? Less agitated. ??Slept better.?? Off restraint. ?? 03/18: Very sleepy.?? Discussed with geriatric??and decided to decrease??as needed Seroquel??from??50 mg??every 4 hours to 25 mg every??6 hours. ??Stop the a.m. dose of the Seroquel.?? Change Seroquelto??25 mg at bedtime. ?? 03/19: Patient appears less sleepy today.?? See workup later this morning,??she appears doing better.?? More cooperative.?? Currently not on any restraint.?? Psych follow-up requested ?? 03/20: Patient alert. Not restrained. Appreciate geriatrics consult: continue Gabapentin 400 mg in the am, 200 mg in the afternoon, 200 mg in the pm, quetiapine 25 mg at hs.?? Psych recommendation appreciated: quetiepine 25mg hs. for 5-7 days. After 5-7 days, can consider transitioning to a PRN medication for anxiety/agitation. Cleared from psych perspective. ?? HLD (hyperlipidemia) ??(E78.5) Continue pravastatin 20mg, qd ?? Hypothyroidism ??(E03.9) Continue levothyroxine 25mcg qd ?? Pneumonia ??(J18.9) Pulmonary vascular congestion ??(R09.89) Chest x-ray showed consolidation within the left lung which may be secondary to pneumonia or focal edema. Left pleural effusion. Pulmonary vascular congestion. No fever.??Floor Care Technician??denied??any aspiration episode or coughing,??she eats regular food. No fever no leukocytosis will hold off antibiotics. Echocardiogram completed which revealed left ventricular ejection fraction 40 to 45%.?? Dyskinesia of the inferolateral wall. Patient denying any chest pain.?? No EKG change.?High-sensitivity troponin??not significantly elevated. -Follow-up outpatient as needed ?? Urinary tract infection ??(N39.0) -Discontinue??cephalexin,??urine culture negative ?? VTE Prophylaxis:??.?? Heparin subcu ?? Code Status:??.?? Full code ,??noxious weeds and pest inspector is not??sure about??her CODE STATUS.?Order Code Status:??Code Status Ordered ?? Discharge Planning:??Patient cleared??for discharge, caregiver asking for one more day to prepare house. ? * Arlene Streeter: PERFORM Event Display: Progress Note Hospital Authored Date: [id number] Attestation:??Patient seen and examined at bedside today by myself, history, plan of care, and??physical exam??discussed with PA student. This note was completed with the aid of a student/resident, Ipersonally performed all components of the visit including the history of present illness, examination and medical decision making. The note has been verified for accuracy and re- documented as needed. ?? Discussed case with??shoe parts caser, social services aide, and geriatrics. ??This is likely the patient's baseline and??have discussed with her caregiver Ashley??who will be able to take the patient home tomorrow??afternoon.?? She will need outpatient follow-up??with referral to [facility], will message her PCP??forthey are aware she will need??further mental health management as an outpatient ?? Arlene Hinojosa PA-C 03/20/2024 Note * Elina Hernandez RN: PERFORM Event Display: Discharge/Transfer Note Hospital Authored Date: [id number] Nursing Discharge Note Entered On: 03/21/2024 16:30 EDT Performed On: 03/21/2024 16:29 EDT by Elina Hernandez RN Nursing Discharge Note 2 Discharge Time : 03/21/2024 14:28 EDT Discharge Level of Care at Discharge : Homehealth/VNA Discharge VNA/Hospice/Home Care(v001) : [facility] Patient Left Unit Via : Wheelchair Patient Accompanied Off Unit with : Responsible adult DC Instructions Provided & Signed by Pt : Unable Patient Understands D/C Instructions : Unable Verbalized Understanding of D/C Plan By : Responsible adult Patient Instructions Discharge Signed : Yes Did Pt have Specialty Bed or Wound Vac : No David WELLER, Elina - 03/21/2024 16:29 EDT * Ashish THOMPSON, Arlene Bullock: PERFORM Event Display: Discharge/Transfer Note Hospital Authored Date: [id number] Patient: ??LIZETH ROLLINS ? Age:??79 Years?Sex:??Female?:??1945?? Patient Information Discharge Location: [facility] Primary Care Physician: Mitali Blanton MD Admit Date/Time: 03/12/24 23:36 Discharge Disposition Discharge Disposition: Home with Home Health Discharge Diagnosis Agitation (R45.1) Dementia (F03.90) HLD (hyperlipidemia) (E78.5) Hypothyroidism (E03.9) Schizotypal disorder (F21) Urinary tract infection (N39.0) Pneumonia (J18.9) Pulmonary vascular congestion (R09.89) _ Discharge Medications Alendronate (alendronate 70 mg [...] 25 mg oral tablet)?25?Milligram?By Mouth?Daily at bedtime ?? 72 Hour Antibiotic History Stopped Antibiotics Stop Date/Time Last Administered First Administered Cephalexin??500 mg, By Mouth, Every 6 hours 03/20/2024 13:56 03/20/2024 08:04 03/13/2024 09:33 Medications Started Gabapentin (gabapentin 100 mg oral capsule)?See Instructions?Please take 200 mg By Mouth Daily in AM and 200 mg daily at 1 PM Quetiapine (SEROquel 25 mg oral tablet)?25?Milligram?By Mouth?Daily at bedtime Medications Discontinued Seroquel 25 mg as needed Doses Changed None Allergies Allergies ?(Active and Proposed Allergies Only) NKA? (Severity: Unknown severity, Onset: Unknown) ? Stroke Onset Details Service Categories #1: Physical Therapy, Custodial Service Categories #2: Other: hospice social worker ?? PCP Follow-Up/Heads-Up Patient will need follow-up in the community for question of??pursuing guardianship??in the community, also needs??referrals to??[facility] Hospital Course Per admitting provider 79F/hx dementia, seen at [facility] today for agitation but dc'd. +UTI. Given zyprexa, alana, and ativan. Update: SInce 2mg Ativan, patient has been hypotensive with systolics in 80s. MAPs > 60 and arousable to stimuli, will order tele for now ?? Patient was seen and examined in AM at bedside. 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 patient was admitted a few days ago at [facility] for altered mental status and found to have a UTI.?she was treated with IV antibiotics and then discharged home earlier??yesterday??with Keflex. ??On reviewing the documentation it appeared that she was still having intermittent agitation and received IM medication prior to being discharged home.Per EMS, the patient was agitated at her home, refusing to take her medication. ?? Patient got 2 mg of??IV Ativan and 5 mg IM Zyprexa overnight in the ER.?? Very sleepy at the time of my evaluation.?? Blood pressure dropped??overnight in the ER. ??However during my evaluation??blood pressure??improved to 147/82.?? Patient??woke up??after calling them??and able to??tell??her birthday and she is in the hospital??and falls back to sleep.?? Denies any complaints. Called patient's??noxious weeds and pest inspector Tricia I spoke to her over phone. As per Tricia??patient was very pleasant??before last??hospitalization at [facility].?? Since that admission she is agitated.?? She was discharged yesterday??from hospital and again became agitated at home.?? So??noxious weeds and pest inspector??called EMS to bring her to the hospital.?? Floor Care Technician denies any concern for anaspiration??or swallow issue. 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 patient was admitted a few days ago at [facility] for altered mental status and found to have a UTI.?she was treated with IV antibiotics and then discharged home earlier?with Keflex. ?? Agitation ??(R45.1); Improved/resolved Schizotypal disorder ??(F21) Dementia ??(F03.90) On Keflex for possible UTI. Geriatric consulted. Continue??gabapentin. Patient takes gabapentin 400mg??AM.?She was initially??very confused??and agitated. Pych consulted??who recommended trazodone 50 mg??at bedtime as needed for insomnia,??Seroquel 50 mg every 4 hours as needed for agitation. ??EKG no QT prolongation. Geriatric is following??geriatric recommended on date 03/15/2024??gabapentin??200-200-400 mg??daily.?? Add Seroquel??12.5 mg twice daily scheduled.?? With improvement of the patient's symptoms. ??Also started on delirium precautions, there were times where she required restraints however 4 days prior to discharge she was much improved and cooperative.?? She will be discharged on??gabapentin 200 mg in the morning??and afternoon??followed by gabapentin 400 mg at bedtime??aswell as Seroquel 25 mg at night??for 5 days. ??She will need extensive follow-up in the community??with??her??PCP??for question of??guardianship. ??She will need referrals to [facility]??for ongoing??care for her history of schizotypical disorder. ??Patient and noxious weeds and pest inspector are agreeable to discharge??home with services at this time. Delirium precaution ordered. Avoid restraint. Frequent reorientation ?? HLD (hyperlipidemia) ??(E78.5) Continue pravastatin 20mg, qd ?? Hypothyroidism ??(E03.9) Continue levothyroxine 25mcg qd ?? Pneumonia ??(J18.9) Pulmonary vascular congestion ??(R09.89) Chest x-ray showed consolidation within the left lung which may be secondary to pneumonia or focal edema. Left pleural effusion. Pulmonary vascular congestion. No fever.??Floor Care Technician??denied??any aspiration episode or coughing,??she eats regular food. No fever no leukocytosis will hold off antibiotics. Echocardiogram completed which revealed left ventricular ejection fraction 40 to 45%.?? Dyskinesia of the inferolateral wall. Patient denying any chest pain.?? No EKG change.?High-sensitivity troponin??not significantly elevated. Follow-up outpatient as needed ?? Urinary tract infection ??(N39.0) -Discontinue??cephalexin,??urine culture negative ?? Discharge Planning:??Home with services ?? . Physical Exam Vital signs reviewed?? Constitutional:??Older female resting comfortably in bed, alert/awake, cooperative, no apparent??CVor respiratory distress Cardiovascular:??S1 S2, RRR, no murmur Pulm:??Clear to auscultation bilaterally with good air entry throughout, no wheezes, rhonchi, rales. No use of accessory muscles Abdominal:??Bowel sounds x4 quadrants, soft, NT, ND, no guarding Extremities:??No edema??or tenderness b/l lower extremities Neuro:??Alert and oriented, moves all extremities spontaneously and independently, cranial nerves II through XII grossly intact Skin: Warm/dry, intact Psych:??Pleasant mood, normal affect, not anxious appearing Consultants Psychiatry Geriatrics Pending Results Add On Lab Order ordered on 03/14/2024 Patient Education Titles WebMD Ignite Patient Education - The Difference Between Delirium and Dementia?? WebMD Ignite Patient Education - Schizophrenia, General Type?? Follow-Up Appointments Added Follow Up ?Time Frame ?Comments Mitali Blanton MD?1 to 2 weeks Post Discharge Care Diet: ??Regular Diet Activity: ??As tolerated Code Status: ??Full Resuscitation Prognosis: ??Fair ?? Discharge ?03/21/24 12:49:00 EDT Home Health Face to Face *Denotes mandatory ricketts ?? *I certify that this patient is under my care and that I or an allowed non- physician working with me had a face to face encounter with the patient on this date:??03/21/2024 13:01 ?? *The encounter with the patient was in whole, or in part, for the following medical condition, which is the primary diagnosis(es) for home health care:??Agitation (R45.1) Dementia (F03.90) HLD (hyperlipidemia) (E78.5) Hypothyroidism (E03.9) Schizotypal disorder (F21) Urinary tract infection (N39.0) Pneumonia (J18.9) Pulmonary vascular congestion (R09.89) ?? *Select the indications for the discipline/s that are being arranged for this patient. Nursing (select all that apply): [_] None [x] Medication management (reconciliation, teaching)?? [x] Chronic disease management?? [_] Wound care and treatment?? [_] Home safety evaluation [_] Administer SQ/IM/IV medications?? [_] Cath care?? [_] Drain care?? [_] Trach or GT care?? Other _ Occupation Therapy (select all that apply): [x] None [_] ADL Management [_] Fall prevention training [_] Energy conservation [_] Cognitive training Other _ Physical Therapy (select all that apply): [_] None [_] Functional mobility training [x] Home exercise program to strengthen [x] Increase ROM?? [x] Falls prevention training [_] Home maintenance program for chronic disease Other _ Speech Therapy (select all that apply): [x] None [_] Swallow evaluation and training [_] Speech and language training [_] Cognitive training to process, organize, and/or recall information Other _ ? *Homebound due to (select all that apply): [x] Inability to leave home without assistance/supervision [_] Inability to ambulate without assistance [_] Pain [x] Decreased strength and endurance [_] Unsteady gait [_] Severe SOB and fatigue [_] Impaired transfers [_] Inability to negotiate stairs [_] Limited weight bearing [_] Mental status change? *Physician Signature: _Arlene Hinojosa PA-C ?? *By signing this, I certify that I have personally evaluated the patient and agree with the findings and recommendations as documented above. ? Results Discharge Labs BLOOD COUNT & DIFF WBC 5.5 k/mm3 ()?? 03/16/2024 06:46 RBC 4.64 m/mm3 ()?? 03/16/2024 06:46 Hgb 13.6 Gm/dL ()?? 03/16/2024 06:46 Hct 42.3 % ()?? 03/16/2024 06:46 MCV 91.2 femtoliters ()?? 03/16/2024 06:46 MCH 29.3 pg ()?? 03/16/2024 06:46 MCHC 32.2 g/dL (Low)?? 03/16/2024 06:46 Platelet Count 304 k/mm3 ()?? 03/16/2024 06:46 RDW-SD 48.3 femtoliters (High)?? 03/16/2024 06:46 MPV 10.9 femtoliters ()?? 03/16/2024 06:46 Nucleated RBC (Automated) 0.0 #/100 WBC'S ()?? 03/16/2024 06:46 Abs. NRBC 0.0 k/mm3 ()?? 03/16/2024 06:46 Abs. Neut 4.1 k/mm3 ()?? 03/16/2024 06:46 Abs. Lymph 0.9 k/mm3 ()?? 03/16/2024 06:46 Abs. [place] 0.3 k/mm3 (Low)?? 03/16/2024 06:46 Abs. Eo 0.1 k/mm3 ()?? 03/16/2024 06:46 Abs. Baso 0.0 k/mm3 ()?? 03/16/2024 06:46 Neut % 75.2 % ()?? 03/16/2024 06:46 Lymph % 16.8 % ()?? 03/16/2024 06:46 [place] % 5.9 % ()?? 03/16/2024 06:46 Eos % 1.1 % ()?? 03/16/2024 06:46 Baso % 0.5 % ()?? 03/16/2024 06:46 Imm Gran 0.5 % ()?? 03/16/2024 06:46 Abs. Imm Gran 0.0 k/mm3 ()?? 03/16/2024 06:46 ?? CARDIAC High Sensitivity Troponin (HSTnT) 26 ng/L (High)?? 03/14/2024 13:22 ? CHEM GENERAL Sodium 142 mmol/L ()?? 03/16/2024 06:46 Potassium 4.7 mmol/L ()?? 03/16/2024 06:46 Chloride 108 mmol/L (High)?? 03/16/2024 06:46 Bicarbonate Level 20 mmol/L (Low)?? 03/16/2024 06:46 Anion Gap 14 ()?? 03/16/2024 06:46 Glucose Level 76 mg/dL ()?? 03/16/2024 06:46 BUN 13 mg/dL ()?? 03/16/2024 06:46 Creatinine-Blood 0.78 mg/dL ()?? 03/16/2024 06:46 Estimated GFR Creatinine 76 ML/MIN/1.73 M2 ()?? 03/16/2024 06:46 Calcium 8.9 mg/dL ()?? 03/16/2024 06:46 Phosphorus 2.5 mg/dL ()?? 03/16/2024 06:46 Protein, Total 6.0 Gm/dL (Low)?? 03/12/2024 21:57 Albumin 3.6 Gm/dL ()?? 03/12/2024 21:57 AG Ratio 1.5 ()?? 03/12/2024 21:57 Alkaline Phosphatase 131 units/L (High)?? 03/12/2024 21:57 Lipase 20 units/L ()?? 03/12/2024 21:57 AST (SGOT) 24 units/L ()?? 03/12/2024 21:57 ALT (SGPT) 32 units/L ()?? 03/12/2024 21:57 Bilirubin, Total 0.4 mg/dL ()?? 03/12/2024 21:57 ? ENDOCRINE/TUMOR MARKER TSH 3.33 uIU/mL ()?? 03/12/2024 21:57 ? UA/URINALYSIS Appear/Color, Urine COLORLESS ()?? 03/12/2024 23:46 Specific [place], Urine 1.008 ()?? 03/12/2024 23:46 pH, Urine 6.5 ()?? 03/12/2024 23:46 Albumin, Urine NEGATIVE ()?? 03/12/2024 23:46 Glucose, Urine NEGATIVE ()?? 03/12/2024 23:46 Ketones, Urine NEGATIVE ()?? 03/12/2024 23:46 Bilirubin, Urine NEGATIVE ()?? 03/12/2024 23:46 Hemoglobin, Urine NEGATIVE ()?? 03/12/2024 23:46 Nitrite, Urine NEGATIVE ()?? 03/12/2024 23:46 Leukocyte, Urine NEGATIVE ()?? 03/12/2024 23:46 Urobilinogen NORMAL mg/dL ()?? 03/12/2024 23:46 WBC's, Urine <1 /HPF ()?? 03/12/2024 23:46 RBC's, Urine <1 /HPF ()?? 03/12/2024 23:46 Squamous Epith 1 /HPF ()?? 03/12/2024 23:46 Mucus SLIGHT /LPF ()?? 03/12/2024 23:46 Hold Urine Culture Testing available 48 hours from time of collection. ()?? 03/12/2024 23:46 ?? URINE OTHER Est Creatinine Clearance 45.16 mL/min ()?? 03/16/2024 08:46 ? Image ?XR Chest Portable??03/12/2024 23:46 by Bunny Alvarado ?Impression: Consolidation within the left lung which may be secondary to pneumonia orfocal edema. Left pleural effusion. Pulmonary vascular congestion. ?Echo Complete-Doppler, Colorflow, M-Mode??03/13/2024 14:30 by Elena Hernandez MD ?Summary Technically difficult study. Definity not used. The left ventricular size is normal. Left ventricular wall thickness is normal. The LV systolic function is mildly reduced . The left ventricular ejection fraction is probably in the 40-45 % range. There is dyskinesis of the inferolateral wall. Suboptimal endocardial definition, patient did not receive IV Definity. Grade I, mild diastolic dysfunction with impaired LV relaxation, which may be normal for the patient's age. There is mild aortic regurgitation. The right ventricular size and function appears grossly normal. ?? Consult ?Geriatrics Consult Note??03/13/2024 14:47 by Leslie Camarena ?Recommendations: ?? Would continue current gabapentin dose upon discharge. See Psychiatry notes for recommendations re: quetiapine. Recommend establishing care with Psychiatric provider upon discharge, Caregiver would like referralto [facility]. Recommend that she follow up with PCP to discuss/clarify whether or not she will need guardianship pursued??in the community-our SW confirmed that she does not have this and there??does not appear to??be any HCP.?? CM is connecting her to [facility]??Program through [facility] as well as Community Navigator.?BH Initial Psychiatric Consultation Note??03/14/2024 14:23 by Niall Boyd DO ?Recommendations: - Can continue Seroquel 25mg daily at bedtime for 5-7 days - After 5-7 days, can consider transitioning to a PRN medication for anxiety/agitation - Does not meet criteria for IPLOC - Cleared from a psychiatric perspective ?? 35_ minutes spent on discharge * Kristin Weaver RN: PERFORM Event Display: Patient Education/Instruction Authored Date: [id number] Inpatient Adult Discharge Instructions. [address] [address] Name: LIZETH ROLLINS : 1945?? Visit: 03/12/2024 23:36?? Current Date: 03/21/2024 14:54 ?? Account: [id number]?? Inpatient Adult Discharge Instructions We would like [...] and their families. Surveys are administered by [employer] ?? If further treatment with your primary care physician or another doctor is recommended, it is important for you to keep the appointment. Call your primary care physician or return to the Emergency Department immediately if your condition worsens, fails to improve, or new symptoms develop. If you need to find a doctor, you can call [facility] [employer] for a referral at [phone] or toll free at [phone]) or log in to [email or web address].. ?? [facility], in keeping with [facility] guidance, no longer requires face masks for [...] a health care jaleel of your choosing. [employer] is a website that allows you to securely view your medical information including your hospital discharge summary, office visit summaries, medications and follow-up visits. You can also request appointments, renew medications, and request access to your medical information using a health care jaleel of your choosing, or just ask a question. You can enroll at [email or web address] or register during your next office visit. You have been discharged from [facility], Patient Care Unit: D6A??. If you have any questions regarding these instructions, including results of studies pending, afteryou leave, please call us and we will be happy to assist you 24/04. [facility] Your Care Team Attending Physician Nicole Vargas MD?? Consulting Providers Nicole Vargas MD?? Discharging Providers Arlene Streeter Reason for Your Visit from home - dx UTI on abx. refusing meds - becoming increasingly altered a& verbally / physically agressive towards family. believes her daughter is a dirty rat. pt spitting & hitting at times, attempting to hug ems at times. hx of schizoeffective. early?? Your Diagnosis Altered mental status Dementia General medical HLD (hyperlipidemia) Hypothyroidism Pneumonia Pulmonary vascular congestion Schizotypal disorder Urinary tract infection Tests Performed Below is a partial list of the tests performed during your hospitalization. You may have had other tests and procedures not included in this list. Please discuss all test results with your provider. BUN Calcium Level CBC CBC w/ Differential Comprehensive Metabolic Panel Creatinine Electrolytes Glucose Level Lipase Lytes Phosphorus Level Troponin T, High Sensitivity TSH with T4 Reflex (Adults Only) Urinalysis w/hold for Urine Culture XR Chest Portable Add On Lab Order?? Primary Care Provider Mitali Blanton MD? Advance Directive Health Care Proxy on File No Patient refuses to discuss Caregiver Relationship: Friend Name of Caregiver: Ashley Patient has a Designated Caregiver: Yes Discharge Vitals Temperature: 97.3 DegF Height: 158 cm Pulse Rate: 63 bpm Weight: 65.9 kg Respiratory Rate:??0 br/min??Low Body Mass Index:??26.32 kg/m2??High Systolic Blood Pressure: 132 mm Hg Body surface area: 1.7 Diastolic Blood Pressure: 64 mm Hg ?? Oxygen Saturation: 100 % ?? Studies Pending All studies ordered during this hospital stay have been completed unless listed below. Please discuss all pending results with your provider listed above in these instructions. ?? Add On Lab Order?? What to do next Instructions From Your Doctor ?? Orders??:Regular Diet :As tolerated Status: ??Full Resuscitation :Fair? 03/21/24 12:49:00 EDT?? You Need to Schedule the Following Appointments Follow Up with??Mitali Blanton MD When:??Within 1 to 2 weeks Where: [address] [place] [address]- Discharge Medications ROLLINSLIZETH :1945 Visit Date:03/12/2024 Medications: Please continue your medications until treatment is completed or stopped by your provider. Medications not listed below should be discontinued. Discuss any questions related to medications with your provider. What How Much When Instructions Next Dose Changed Gabapentin 400 Milligram Oral Daily at Bedtime 03/21 PM Changed Gabapentin (gabapentin 100 mg oral capsule) See instructions Please take 200 mg By Mouth Daily in AM and 200 mg daily at 1 PM ?? Pickup at [facility] #[id number] 03/22 9 AM Changed Quetiapine (SEROquel 25 mg oral tablet) 25 Milligram Oral Daily at Bedtime Pickup at [facility] #[id number] 03/21 9 PM Unchanged Alendronate (alendronate 70 mg oral tablet) 1 tab(s) Oral Every week Resume Schedule Unchanged Cholecalciferol (Vitamin D3 50 mcg (2000 intl units) oral tablet, chewable) 0.5 tab(s) Oral Daily 03/22 9 AM Unchanged Donepezil (donepezil 5 mg oral tablet) 1 tab(s) Oral Daily at Bedtime 03/21 PM Unchanged Levothyroxine (levothyroxine 25 mcg (0.025 mg) oral capsule) 1 capsule Oral Daily 03/22 AM Unchanged Paroxetine 30 Milligram Oral Daily 03/22 AM Unchanged Pravastatin 20 Milligram Oral Daily 03/22 9 AM Pharmacy Information [facility] #[id number]: [address], [place] [phone] Prescription Given During Visit Gabapentin (gabapentin 100 mg oral capsule) - , # 120 capsule, 0 Refills, Please take 200 mg By Mouth Daily in AM and 200 mg daily at 1 PM, [facility] #[id number], [address] [place] [phone]?? Quetiapine (SEROquel 25 mg oral tablet) - 25 mg, By Mouth, Daily at bedtime, # 5 tablet, 0 Refills,[facility] #[id number], [address] [place] [phone]?? Laboratory Results Below is a partial list of the most recent Laboratory test results done prior to this discharge. You may have had other tests and procedures not included in this list. Please discuss all test resultswith your provider. Est Creatinine Clearance - 45.16 mL/min (03/16/2024) BUN (03/16/2024) ???BUN - 13 mg/dL Calcium Level (03/16/2024) ???Calcium - 8.9 mg/dL CBC (03/14/2024) ???WBC - 5.8 k/mm3???RBC - 4.54 m/mm3???Hgb - 13.1 Gm/dL???Hct - 41.7 %???MCV - 91.9 femtoliters???MCH - 28.9 pg???MCHC - 31.4 g/dL???Platelet Count - 240 k/mm3???RDW-SD - 48.3 femtoliters???MPV - 9.7 femtoliters???Nucleated RBC (Automated) - 0.0 #/100 WBC'S???Abs. NRBC - 0.0 k/mm3 CBC w/ Differential (03/16/2024) ???WBC - 5.5 k/mm3???RBC - 4.64 m/mm3???Hgb - 13.6 Gm/dL???Hct - 42.3 %???MCV - 91.2 femtoliters???MCH - 29.3 pg???MCHC - 32.2 g/dL???Platelet Count - 304 k/mm3???RDW-SD - 48.3 femtoliters???MPV - 10.9 femtoliters???Nucleated RBC (Automated) - 0.0 #/100 WBC'S???Abs. NRBC - 0.0 k/mm3???Abs. Neut - 4.1 k/mm3???Abs. Lymph - 0.9 k/mm3???Abs. [place] - 0.3 k/mm3???Abs. Eo - 0.1 k/mm3???Abs. Baso - 0.0 k/mm3???Neut % - 75.2 %???Lymph % - 16.8 %???[place] % - 5.9 %???Eos % - 1.1 %???Baso % - 0.5 %???Imm Gran - 0.5 %???Abs. Imm Gran - 0.0 k/mm3 Comprehensive Metabolic Panel (03/12/2024) ???Sodium - 142 mmol/L???Potassium - 4.8 mmol/L???Chloride - 109 mmol/L???Bicarbonate Level - 19 mmol/L???Anion Gap - 14???Glucose Level - 97 mg/dL???BUN - 12 mg/dL???Creatinine-Blood - 0.80 mg/dL???Estimated GFR Creatinine - 74 ML/MIN/1.73 M2???Calcium - 8.9 mg/dL???Protein, Total - 6.0 Gm/dL???Albumin - 3.6 Gm/dL???AG Ratio - 1.5???Alkaline Phosphatase - 131 units/L???AST (SGOT) - 24 units/L???ALT (SGPT) - 32 units/L???Bilirubin, Total - 0.4 mg/dL Creatinine (03/16/2024) ???Creatinine-Blood - 0.78 mg/dL???Estimated GFR Creatinine - 76 ML/MIN/1.73 M2 Electrolytes (03/16/2024) ???Sodium - 142 mmol/L???Potassium - 4.7 mmol/L???Chloride - 108 mmol/L???Bicarbonate Level - 20 mmol/L???Anion Gap - 14 Glucose Level (03/16/2024) ???Glucose Level - 76 mg/dL Lipase (03/12/2024) ???Lipase - 20 units/L Lytes (03/14/2024) ???Sodium - 146 mmol/L???Potassium - 4.3 mmol/L???Chloride - 112 mmol/L???Bicarbonate Level - 23 mmol/L???Anion Gap - 11 Phosphorus Level (03/16/2024) ???Phosphorus - 2.5 mg/dL Troponin T, High Sensitivity (03/14/2024) ???High Sensitivity Troponin (HSTnT) - 26 ng/L TSH with T4 Reflex (Adults Only) (03/12/2024) ???TSH - 3.33 uIU/mL Urinalysis w/hold for Urine Culture (03/12/2024) ???Appear/Color, Urine - COLORLESS???Specific [place], Urine - 1.008???pH, Urine - 6.5???Albumin, Urine - NEGATIVE???Glucose, Urine - NEGATIVE???Ketones, Urine - NEGATIVE???Bilirubin, Urine - NEGATIVE???Hemoglobin, Urine - NEGATIVE???Nitrite, Urine - NEGATIVE???Leukocyte, Urine - NEGATIVE???Urobilin ogen - NORMAL? ?WBC's, Urine - <1 /HPF? ?RBC's, Urine - <1 /HPF? ?Squamous Epith - 1 /HPF? ?Mucus - SLIGHT???Hold Urine Culture - Testing available 48 hours from time of collection. Allergies (NKA means No Known Allergies) NKA Problems Active Problems??(7) allergic rhinitis?? COVID-19?? Dementia?? HLD (hyperlipidemia)?? Hypothyroidism?? Osteoporosis?? Schizotypal disorder?? Education Materials Below is the list of Educational Leaflet Providered with your Discharge Instructions. Web[employer] Ignite Patient Education - The Difference Between Delirium and Dementia?? Web[employer] Ignite Patient Education - Schizophrenia, General Type?? Valuables and Belongings I fully understand and agree that [facility] accepts no responsibility for all my personal [...] Review of Valuable and Belonging List: With witness Possessions released to: no ??medical ??advices Date for Pt to Sign Valuables/Belongings: 03/13/24 04:13:00 ?? Other Discharge Information ? Case Management Discharge Plan?? Discharge Plan?? Discharge Agency Information?? Discharge Level of Care at Discharge: Homehealth/VNA Name of Agency #1: [facility] Discharge VNA/Hospice/Home Care: [facility] Name of Agency #1: [facility] Discharge Elder Services: [facility] [address] [place] [phone] Name of Agency #1: [facility] Discharge Early Intervention Programs: [facility] Agency [employer]i Press Operator #1: intake ?? Service Categories #1: Physical Therapy, Custodial ?? Service Comments #1: You will be discharged with [facility] for services in your home. If you do not recieve a phone call from them within 48 hours of discharge please call the agency directly. ?? Agency [employer] [facility] #2: Raul Byrne ?? Service Categories #2: Other: hospice social worker ?? Service Comments #2: Your [facility] case monitor is raul byrne [phone] ext. [phone], her lump room supervisor is Ana Méndez ext. [phone] they will be following up with you in the community. ?? Agency [employer] [employer] [facility] #3: Laquita Evans ?? Service Categories #3: Management And Budget Analyst ?? Service Comments #3: [facility] social services aide will be following up with you in the community. ?? Pulmonary Rehab Status?? Pulmonary Rehab Discharge Status?? Respiratory Rate:??0 br/min??Low ? Common Emergency Awareness Tips IS IT [...] are strongly encouraged to quit. Please call [facility] [employer] Link at [phone] or [phone] ([phone]) or log in to [email or web address] for referrals to smoking cessation programs. ?? 105 Suicide & Crisis Lifeline is available 24/04 if you or someone you know needs to find a reason to keep living. By calling 485 you'll be connected to a skilled, trained counselor at a crisis center in your area. INPATIENT DISCHARGE INSTRUCTIONS SIGNATURE PAGE LIZETH ROLLINS Location:[facility] Registration Date and Time:03/12/2024 23:36 EDT Primary Care Physician: Mitali Blanton MD, Attending Physician: Alicia LUTZ, Nicole, I LIZETH ROLLINS, have received the above patient education materials/instructions and have verbalized understanding. If ambulance or transport services are being used I further acknowledge being given a choice of service. ?? If you need to contact me, please call me at this number: . Patient/Pipelines Laborer Name: Patient/Pipelines Laborer Signature: Relationship to Patient: Witness Name/Signature: Date: * Kristin Weaver RN: PERFORM Event Display: Patient Education Leaflets Authored Date: [id number] Psychosis ?? [id number] Psychosis Psychosis is a serious symptom of certain mental health problems. It also can be caused by some physical disease, traumatic experiences, or drugs and toxins. Psychosis involves perceiving reality differently from those around you. The difference between reality and what you think is reality becomesblurred in your mind. There are different kinds of psychosis, depending on the cause: ??? Health problems such as infections, thyroid disorders, some cancers, sleep deprivation, low or high blood sugar levels, or dementia ??? Drug-induced from drugs such as marijuana, alcohol, methamphetamine, cocaine, LSD, or PCP ??? Bipolar disorder ??? Depression ??? Schizophrenia Symptoms The symptoms of psychosis may not all be the same for each person. But they usually involve: ??? Hallucinations. Seeing, hearing, feeling, or even tasting or smelling things that are not there. ??? Delusions.??Believing something that's not true, or false beliefs that are not part of a person's gnosticism or cultural background. There may also be disturbances in thinking, speech, and behavior. These can include: ??? Hearing voices that others don't hear ??? Seeing things that others don't see ??? Racing thoughts ??? Lack of energy ??? Feeling very fearful ??? Disorganized speech ??? Intentional or unintentional bodily harm to others ??? An unfounded sense of not trusting people around you (paranoia) ??? Trouble thinking or concentrating clearly ??? Depression, feeling suicidal ??? Insomnia ??? Withdrawalfrom those around you Treatment for psychosis depends on the cause. Medicine is often used, with or without psychotherapy. You may need to stay in the hospital. This is to protect you and to carefully monitor medicines. ?? Home care ??? Find a healthcare provider and therapist who meet your needs. Seek help when you feellike your symptoms are returning. ??? Make sure to take your medicine as directed even if you thinkyou don't need it. ??? Never stop your medicine or change the dose without talking with your provider. Never use another person's medicine. ??? If you have trouble paying for your prescription, let your providers know so they can help you find resources. ??? Talk with your family and friends about your feelings and thoughts. Ask them to help you recognize any behavior changes so you can get help right away., Medicines can be adjusted if needed. ??? Contact your provider if you feel like your medicine is not working or you are having bad side effects. Medicine changes may need to be made. ?? Follow-up care is critical It's important to manage your condition by staying in close and regular contact with your healthcare team. Always follow up with your counselor, therapist, or psychiatrist as advised. Don't skip taking your medicine or change it without talking with your healthcare team. Take it as advised even if you think you don't need it. Also: ??? Tell each of your healthcare providers about all of the prescription medicines, ktiu-cst-nzevgxa medicines, illegal drugs, vitamins, and supplements you take.??Certain supplements interact with medicines. This can result in dangerous side effects.??Ask your pharmacist when you have questions about drug interactions. Tell your provider if you drink alcohol. If you do, tell them how oftenand how much you drink. ??? Tell your healthcare provider about all your medical conditions and anyrecent illnesses, such as infections. ??? Follow-up with lab tests as advised by your healthcare provider. Lab work is very important and can tell your provider the blood level of certain medicines. They can see if your dose needs to be increased or decreased. ??? Keep all follow-up appointments with healthcare providers who are treating other medical conditions. Long-term conditions like diabetes or thyroid problems can affect your emotional well-being if they are not controlled. ?? Crisis care If you or the person is at immediate risk, call or text the National Suicide Lifeline at 988. Or call emergency services at 911. You will be connected to trained crisis counselors. An online chat option is also available. Lifeline is free and available 24/04. The Lifeline will work together with [employer] to make sure you get the care you need. Call 988 if you: ??? Have suicidal thoughts, a suicide plan, and the means to carry out the plan ??? Hear voices that are telling you to harm yourself or others ??? Have trouble breathing ??? Are very confused ??? Are very drowsy or have trouble awakening ??? Faint or lose??consciousness ??? Have arapid heart rate, very low heart rate, or a new irregular heart rate ??? Have a seizure ?? When to seek medical advice Call your healthcare provider right away if any of these occur: ??? Gradual or rapid return of psychotic symptoms ??? Feeling like you want to harm yourself or another ??? Feeling extremely depressed??? Feeling very anxious, agitated, or angry ??? Feeling out of control or being controlled by others ??? Feeling unable to take care of yourself ??? Seeing things or hearing voices that you know aren't real ??? Family members or friends are worried about your emotional or physical health and ask you to call your provider ??? Symptoms from other health conditions that get worse. Or new symptoms develop. ?? Last Reviewed Date: 2023 ?? [id number] [employer]. All rights reserved. This information is not intended as a substitute for professional medical care. Always follow your healthcare professional's instructions. ?? * Kristin Weaver RN: PERFORM Event Display: Patient Education Leaflets Authored Date: [id number] Discharge Instructions for Hypothyroidism and Myxedema ?? [id number] Discharge Instructions for Hypothyroidism and Myxedema You have hypothyroidism. Your thyroid gland is not making enough thyroid hormone to meet your body's needs.??Hypothyroidism slows your body???s normal rate of functioning. This causes mental and physical sluggishness.??Symptoms may??range from mild to severe. The most severe form is called myxedemacoma. This is a medical emergency. Medicine Take your thyroid hormone medicine exactly as directed. You will take this medicine for the rest ofyour life. ??? Take your medicine at the same time each day. ??? Keep your pills in a container that is labeled with the days of the week. This will help you know if you???ve taken your medicine eachday. ??? Take your medicine with a full glass of water on an empty stomach. Take it at least 30 minutes to 1 hour before you eat breakfast. Or at bedtime, take it at least 3 hours after eating. ??? Don't take calcium or iron within 4 hours of taking your thyroid medicine. And ask your healthcare provider about taking other medicines, vitamins, and herbal supplements with your thyroid pill. ??? Keep taking your medicine if you get . Many women need more thyroid medicine during .Your provider may raise your dose. ??? Your provider will regularly check your thyroid hormone levels with blood tests. If your dose is changed, you will often have lab work in 4 to 6 weeks. This is to be sure the new dose is right for you. ??? Always tell your providers of any changes in your other medicines. This includes estrogens, testosterone, opioids, heart medicines, and anti-seizure medicines. These changes may affect your thyroid hormone levels. ??? Never stop treatment on your own. Ifyou do, your symptoms will come back. ?? Other home care ??? During your routine visits, tell your healthcare provider about any signs of too much thyroid hormone (hyperthyroidism), such as: o Restlessness o Rapid weight loss o Sweating o Fast heartbeat (palpitations) ??? Eat a high-fiber, low-calorie diet. This can help ease constipation. It can also help you stay at a healthy weight. ??? Exercise. Start slow, by walking 5 to 15 minutes each day. The U.S. Department of Health and Human Services advises that adults with chronic conditions or disabilities, who are able, should do: o At least 150 minutes (2 hours and 30 minutes) to 300 minutes (5 hours) a week of moderate-intensity aerobic activity o Or 75 minutes (1 hour and 15 minutes) to 150 minutes (2 hours and 30 minutes) a week of vigorous-intensity aerobic activity o Or an equal mix of moderate- and vigorous-intensity aerobic activity. This can be done in 10-minute periods during the day. ??? Hypothyroidism is linked to higher cholesterol and a higher risk of heart disease. Correcting this problem generally improves cholesterol levels. Talk with your healthcare provider about a healthy lifestyle. ?? To learn more The resources below can help you learn more: ??? [place] Thy[employer] Association at www.thyroid.org cg479-135-9939 ??? Hormone [facility] at www.hormone.org or 618-443-5363 ?? Follow-up care Follow-up with your healthcare provider, or as advised. ?? When to call your healthcare provider Call your healthcare provider right away if any of the following occur: ??? Extreme tiredness (fatigue) ??? Puffy hands, face, or feet ??? Irregular heartbeat ??? Confusion ??? Rapid weight loss or weight gain ?? Last Reviewed Date: 2021 ?? [id number] [employer]. All rights reserved. This information is not intended as a substitute for professional medical care. Always follow your healthcare professional's instructions. ?? * Arlene Streeter: PERFORM Event Display: Patient Education Leaflets Authored Date: [id number] Multiple Documents ?? [id number] The Difference Between Delirium and Dementia Dementia and delirium are 2 health problems that change a person???s mental state. They both affectthe ability to think clearly. They share other similar symptoms. But they have different causes. And they have different treatment and outcomes. Delirium is a medical emergency. It needs to be treated right away. But it can often be mistaken for dementia. In some cases, they can occur at the same time. Learn what you can do to help a person who has signs of 1 or both of these conditions. What is delirium? Delirium is a sudden change in a person???s mental state. It changes over short periods of time. ??? They will have trouble paying attention. They may have trouble following a conversation. Their thinking and speech may be confused and unclear. ??? They may vary from agitated to sleepy. ??? Delirium is a medical emergency. Usually, there is a cause. ??? Delirium is treated by finding the cause. Once the cause is treated, the delirium can go away. ?? What is dementia? Dementia is a long-term disease. It has a range of symptoms that mean a person???s brain is losing function. A person???s ability to think, remember, and communicate gets worse over time. These changes are permanent. This process occurs over years. It can happen quickly or slowly. This depends on the cause. At first, a person may sometimes be forgetful or confused. Symptoms may be mild. As the condition gets worse, the person will repeat questions. They may forget basic information. Over time, they'll have trouble following directions and doing daily tasks. They'll have trouble talking with and understanding people. They may forget who people are. They may not know where they are. They may also be gonzales or restless. In some cases, dementia can occur suddenly. For example, a stroke or head injury can cause permanent trouble with thinking and communication. In these cases, dementia may not get worse with time. People with dementia are at risk of also having delirium. This means a person with dementia may have worse symptoms due to another health problem. When the health problem is treated, the symptoms mayimprove. But the person will still have dementia. ?? Knowing the difference ?? Dementia Delirium Common signs Signs include forgetfulness and confusion. The person will have trouble speaking with and understanding others. This occurs over long periods of time. Signs include sudden changes in mental state. Changes may range from agitation to tiredness. When signs appear There is a slow change in mental state and behavior over months or years. There is a sudden change in mental state and behavior over hours or days. Thinking and attention The person may often seem confused. Over time, their thinking won't make sense. They won't be able to focus well. They often won't be able to talk with or understand people well. In some cases, they may see or hear things that others can???t (hallucinations). They won't be able to remember events that just happened. They'll lose memories of events in the past. They may not remember who people are. They may not know where they are. They may not recognize common objects. The person may be confused. They may have trouble focusing and talking with people. It's likely they won't be able to tell a healthcare provider about their symptoms. They may see or hear things thatothers can???t (hallucinations). They may not be able to remember something that just happened. ?? Getting a diagnosis A person with signs of dementia or delirium will need to be diagnosed correctly. In some cases, youcan help. You can tell the healthcare provider how the person's mental state is different from their normal state. This can help the provider diagnose the problem. Healthcare providers will look at different parts of a person's health. They'll look at what medicine a person is taking. They'll see if the person has an infection. They'll find out if they have an illness that's gotten worse. They may talk with the person to learn more about their mental state. And they may do tests to see if there may be a cause for delirium. Tests for dementia and delirium include blood and urine tests, and an MRI or CT scan of the brain. Delirium is an emergency. The person may need to be in the hospital until the cause is found. ?? When to get medical help Someone with dementia may also have signs of delirium. This may mean that there is another health problem. If someone has sudden changes in mental state, call their healthcare provider right away. Or call 911. Tell the provider about the changes in mental state that you have seen. ?? To learn more Contact these groups: ??? Alzheimer's Association at www.alz.org or 266-186-4437 ??? National [place] on Aging at www.kade.nih.gov/contact or 487-101-7520 ??? Alzheimer's Foundation of [place] at www.alzfdn.org or 610-952-6430 ?? Last Reviewed Date: 2021 ?? [employer]. All rights reserved. This information is not intended as a substitute for professional medical care. Always follow your healthcare professional's instructions. ?? Patient Care team information Care Team Personnel Name: Carolina Azul RN Position: S RN Member Role: Primary Care Nurse Name: Mitali Blanton MD Position: [facility] Physician - Primary Care Member Role: PCP Address: Address: [address] [place], [place] [address] Name: Shilpa Serna RN Position: [facility] RN Member Role: Primary Care Nurse Name: Mehnaz De Jesus Position: S RN Member Role: Primary Care Nurse Name: Jennifer Dale RN Position: S RN Member Role: Primary Care Nurse Name: Selam Diallo RN Position: S RN Member Role: Primary Care Nurse Name: Patricia Hood RN Position: S RN Member Role: Primary Care Nurse Name: Janette Albarran RN Position: S RN Member Role: Primary Care Nurse Care Team Related Persons Name: TRICIA DOUGHERTY Address: home [address] [place] [address] Name: TRICIA ARIAS Address: home [address] [place] [address]
[2024-04-25 14:41] VITALS: BP 136/84; PULSE 84; O2SAT 96; BMI 26.0
--- NOTE | 2024-04-25 14:41 | MHC.PC.OV ---
Vital Signs 04/25/24 14:41 Height 5 ft 2 in Weight 142 lb BMI 26.0 BP 136/84 Blood Pressure Location Rt brachial Position Sitting Pulse 84 Pulse Source Pulse Oximeter Pulse Oximetry (%) 96 Oxygen Delivery Method Room Air Intake Visit Reasons: Hospital follow up Intake Note: Pt is here today for Hospital follow up visit. Allergies No Known Allergies Allergy (Verified 04/25/24 14:41) Medication List - Last Reconciled 04/25/24 by Mitali Blanton MD alendronate (Fosamax) 70 mg PO QWEEK cholecalciferol (vitamin D3) 25 mcg PO DAILY diaper,brief,adult,disposable (Briefs Medium) As directed disposable gloves (Biobrane Gloves Large) As directed [disposable wipes As directed] donepezil 5 mg PO BEDTIME gabapentin 100 mg PO DAILY gabapentin 100 mg PO BID levothyroxine 25 mcg PO DAILY paroxetine HCl 30 mg PO DAILY pravastatin 20 mg PO DAILY Tobacco use date assessed: 04/25/24 Fall risk assessment: No Falls in past year Last assessed Fall Risk: 04/25/24 Dental Screening Dental Screen Date: 11/15/23 HPI Hospital follow up HPI Details Pt presents for f/u hospitalization for acute psychosis related to UTI. Patient has been getting home physical therapy but needs a portable wheelchair and shower chair due to impaired mobility. She had psychiatric evaluation and was started on Depakote 250 twice a day for mood stabilizer but patient's caregiver noticed patient's appetite significantly decreased. She denies depression and has been taking paroxetine. [facility] Medical History Hyperlipidemia Anxiety and depression Annual physical exam Vitamin D deficiency Dementia Hypothyroid Surgical History No pertinent past surgical history Family History Father No problems noted. Mother Mental health disorder Social History Housing: Other Patient Tobacco Use Status: Never used Tobacco e-Cigarette/Vaping Use: Never Used Second Hand Smoke Exposure: No service: No Current occupational status: other Current occupational exposures/hazards: No Cognitive needs: No Hearing needs: No Vision needs: No Questionnaire Thrive Questionnaire Date Thrive assessed: 04/18/24 I am a: Parent/Caregiver What is your living situation today?: I have a steady place to live Within the past 12 months, did the food you bought not last and you didn't have the money to get more?: Never true Within the past 12 months, did you worry whether your food would run out before you got money to buy more?: Never true Do you have trouble paying for medicines?: No Do you have trouble getting transportation to medical appointments?: No Do you have trouble paying your heating and electricity bill?: No Do you have trouble taking care of your child, family member or friend?: No Do you have trouble with day-to-day activities such as bathing, preparing meals, shopping, managing finances, etc.?: No Are you currently unemployed and looking for a job?: No Are you interested in more education?: No Currently or been in a relationship where the following occur: No concerns reported THRIVE Score: 0 AUDIT C Alcohol Use Questionnaire (AUDIT-C) 1. How often do you have a drink containing alcohol?: Monthly or less 2. How many drinks containing alcohol do you have on a typical day when you are drinking?: 1 or 2 3. How often do you have six or more drinks on one occasion?: Monthly Total Score: 3 CINDY-7 AMB Questionnaire CINDY-7 Date CINDY - 7 assessed: 11/15/23 Feeling nervous, anxious, or on edge: 0 = Not at all Not being able to stop or control worryin = Not at all Worrying too much about different things: 0 = Not at all Trouble relaxin = Several days Being so restless that it is hard to sit still: 1 = Several days Becoming easily annoyed or irritable: 1 = Several days Feeling afraid as if something awful might happen: 0 = Not at all Total CINDY-7 score (0-4 normal; 5-9 mild; 10-14 moderate; 15-21 severe): 3 Source: Developed by Drs. Reza Chin, Nabila Malin, Skinny Vásquez and colleagues, with an educational severiano from [employer] Review of Systems Const All systems reviewed & are unremarkable except as noted in HPI and below ENT Reports no additional complaints Card Reports no additional complaints Resp Reports no additional complaints GI Reports no additional complaints Reports no additional complaints Physical exam (Primary Care) Vital Signs: Last Vital Signs Pulse 84 04/25/24 14:41 BP 136/84 04/25/24 14:41 Pulse Ox 96 04/25/24 14:41 Oxygen Delivery Method Room Air 04/25/24 14:41 BMI result Body Mass Index 26.0 Tobacco/Smoking Status: Tobacco use Status Tobacco use date assessed 04/25/24 04/25/24 15:26 Patient Tobacco Use Status Never used Tobacco 04/25/24 15:26 e-Cigarette/Vaping Use Never Used 04/25/24 14:41 Thrive Assessment: Date of Thrive Assessment Date Thrive assessed 04/18/24 04/25/24 14:41 Currently or been in a relationship where the following occur: No concerns reported Const General: no acute distress HENMT Mouth: Normal oral and palatal mucosa present Resp Effort & Inspection: normal respiratory effort Auscultation: clear to auscultation bilaterally Cardio Rhythm: regular rhythm Heart sounds: S1 normal heart sound present and S2 normal heart sound present GI Inspection: Yes normal to inspection Palpation (GI): Soft to palpation Percussion: Yes normal to percussion Auscultation: normal bowel sounds Assessment and Plan Assessment & Plan (1) Hyperlipidemia: Code(s): E78.5 - Hyperlipidemia, unspecified Plan: Continue statin (2) Anxiety and depression: Code(s): F41.9 - Anxiety disorder, unspecified; F32.9 - Major depressive disorder, single episode, unspecified Plan: Continue paroxetine and decrease Depakote to 125 twice a day for 1 month and then just once a day. (3) Dementia: Code(s): F03.90 - Unspecified dementia, unspecified severity, without behavioral disturbance, psychotic disturbance, mood disturbance, and anxiety Plan: Continue donepezil (4) Hypothyroid: Code(s): E03.9 - Hypothyroidism, unspecified Plan: Continue levothyroxine Medications: New gabapentin 100 mg PO BID 180 caps 1RF divalproex (Depakote) 125 mg PO BID 180 tabs 0RF Refilled levothyroxine 25 mcg PO DAILY 90 tabs 3RF E03.9 - Hypothyroidism, unspecified donepezil 5 mg PO BEDTIME 90 tabs 3RF alendronate (Fosamax) 70 mg PO QWEEK 14 tabs 3RF pravastatin 20 mg PO DAILY 90 tabs 3RF Coding Level of Care Code Est Pt Level 4 (98949) Diagnoses Hyperlipidemia E78.5 Anxiety and depression F41.9; F32.9 Dementia F03.90 Hypothyroid E03.9
== END 2024-04-25 15:49 | disposition home or self-care (01) ==
LOC: HO.HMGC 13:49
PROVIDERS: PCP Internal Medicine; Visit Provider Internal Medicine
DX: E78.5 Hyperlipidemia, unspecified (principal); F41.9 Anxiety disorder, unspecified; F03.90 Unspecified dementia, unspecified severity, without behavioral disturbance, psychotic disturbance, mood disturbance, and anxiety; E03.9 Hypothyroidism, unspecified; F32.9 Major depressive disorder, single episode, unspecified
CPT/HCPCS: 99214

== ENCOUNTER 2024-05-22 08:33 | Outpatient (REF) | payer MEDICARE, SELFPAY ==
[2024-05-25 00:33] LABS: TS Negative Control Passed; TS Panel A 0; TS Panel B 0; TS Positive Control Passed; TSpotTB Negative (Negative)
== END 2024-05-22 08:34 | disposition home or self-care (01) ==
LOC: HO.HMGCLDS 08:33
PROVIDERS: PCP Internal Medicine; Visit Provider Internal Medicine
DX: Z11.1 Encounter for screening for respiratory tuberculosis (principal)
CPT/HCPCS: 36415; 86481

== ENCOUNTER 2024-07-17 13:26 | Outpatient (AMB) | payer MEDICARE, SELFPAY ==
[2024-07-17 13:48] VITALS: BP 138/86; PULSE 89; O2SAT 98; BMI 25.2
--- NOTE | 2024-07-17 13:48 | MHC.PC.OV ---
Vital Signs 07/17/24 13:48 Height 5 ft 2 in Weight 138 lb BMI 25.2 BP 138/86 Blood Pressure Location Lt brachial Position Sitting Pulse 89 Pulse Source Pulse Oximeter Pulse Oximetry (%) 98 Oxygen Delivery Method Room Air Intake Visit Reasons: follow up medication Intake Note: Pt is here today for a follow up visit. Pt's hearing care professional states that pt has hard time hearing. Allergies No Known Allergies Allergy (Verified 04/25/24 14:41) Medication List - Last Reconciled 07/17/24 by Mitali Blanton MD alendronate (Fosamax) 70 mg PO QWEEK cholecalciferol (vitamin D3) 25 mcg PO DAILY diaper,brief,adult,disposable (Briefs Medium) As directed disposable gloves (Biobrane Gloves Large) As directed [disposable wipes As directed] divalproex (Depakote) 125 mg PO BID donepezil 5 mg PO BEDTIME gabapentin 100 mg PO BID levothyroxine 25 mcg PO DAILY paroxetine HCl 30 mg PO DAILY pravastatin 20 mg PO DAILY Shower Chair Shower chair with backrest [Transfer wheelchair with footrests As directed] Tobacco use date assessed: 07/17/24 Dental Screening Dental Screen Date: 11/15/23 HPI follow up medication HPI Details Patient presents for the follow-up of hyperlipidemia hypothyroidism dementia chronic anxiety and depression controlled on current medications. [facility] Medical History Hyperlipidemia Anxiety and depression Annual physical exam Vitamin D deficiency Dementia Hypothyroid Surgical History No pertinent past surgical history Family History Father No problems noted. Mother Mental health disorder Social History Housing: Other Patient Tobacco Use Status: Never used Tobacco e-Cigarette/Vaping Use: Never Used Second Hand Smoke Exposure: No service: No Current occupational status: other Current occupational exposures/hazards: No Cognitive needs: No Hearing needs: No Vision needs: No Questionnaire PHQ-9 Over the last 2 weeks, how often have you been bothered by any of the following problems? 1. Little interest or pleasure in doing things: not at all 2. Feeling down, depressed, or hopeless: several days 3. Trouble falling or staying asleep, or sleeping too much: not at all 4. Feeling tired or having little energy: not at all 5. Poor appetite or overeating: not at all 6. Feeling bad about yourself - or that you are a failure or have let yourself or your family down: not at all 7. Trouble concentrating on things, such as reading the newspaper or watching television: not at all 8. Moving or speaking so slowly that other people could have noticed. Or the opposite - being so fidgety or restless that you have been moving around a lot more than usual: not at all 9. Thoughts that you would be better off or of hurting yourself in some way: not at all Total score: 1 Depression Screening Interpretation: Negative Depression Screening Done: Yes 66055 - PHQ-9 Billing: Yes Source: Developed by Drs. Reza Chin, Nabila Malin, Skinny Vásquez and colleagues, with an educational severiano from [employer]. Thrive Questionnaire Date Thrive assessed: 04/18/24 I am a: Parent/Caregiver What is your living situation today?: I have a steady place to live Within the past 12 months, did the food you bought not last and you didn't have the money to get more?: Never true Within the past 12 months, did you worry whether your food would run out before you got money to buy more?: Never true Do you have trouble paying for medicines?: No Do you have trouble getting transportation to medical appointments?: No Do you have trouble paying your heating and electricity bill?: No Do you have trouble taking care of your child, family member or friend?: No Do you have trouble with day-to-day activities such as bathing, preparing meals, shopping, managing finances, etc.?: No Are you currently unemployed and looking for a job?: No Are you interested in more education?: No Please select the resources that you would like help with: None Currently or been in a relationship where the following occur: No concerns reported THRIVE Score: 0 CINDY-7 AMB Questionnaire CINDY-7 Date CINDY - 7 assessed: 11/15/23 Source: Developed by Drs. Reza Chin, Nabila Malin, Skinny Vásquez and colleagues, with an educational severiano from [employer]. Review of Systems Const All systems reviewed & are unremarkable except as noted in HPI and below ENT Reports no additional complaints Card Reports no additional complaints Resp Reports no additional complaints GI Reports no additional complaints Reports no additional complaints Physical exam (Primary Care) Vital Signs: Last Vital Signs Pulse 89 07/17/24 13:48 BP 138/86 07/17/24 13:48 Pulse Ox 98 07/17/24 13:48 Oxygen Delivery Method Room Air 07/17/24 13:48 BMI result Body Mass Index 25.2 Tobacco/Smoking Status: Tobacco use Status Tobacco use date assessed 07/17/24 07/17/24 14:02 Patient Tobacco Use Status Never used Tobacco 07/17/24 13:48 e-Cigarette/Vaping Use Never Used 07/17/24 13:48 PHQ-9: PHQ-9 Score PHQ-9: Total score 1 07/17/24 13:48 Depression Screening Interpretation: Negative Thrive Assessment: Date of Thrive Assessment Date Thrive assessed 04/18/24 07/17/24 13:48 Currently or been in a relationship where the following occur: No concerns reported Const General: no acute distress Neck Neck: Yes supple Resp Effort & Inspection: normal respiratory effort Auscultation: clear to auscultation bilaterally Cardio Rhythm: regular rhythm Heart sounds: S1 normal heart sound present and S2 normal heart sound present GI Inspection: Yes normal to inspection Coding Level of Care Code Est Pt Level 4 (08818) Diagnoses Hyperlipidemia E78.5 Anxiety and depression F41.9; F32.9 Dementia F03.90 Hypothyroid E03.9 Urinary frequency R35.0 Assessment & Plan Assessment & Plan (1) Hyperlipidemia: Code(s): E78.5 - Hyperlipidemia, unspecified Category: Medical Plan: Continue statin (2) Anxiety and depression: Code(s): F41.9 - Anxiety disorder, unspecified; F32.9 - Major depressive disorder, single episode, unspecified Category: Medical Plan: Continue current medications. Patient will taper down Depakote to 125 mg daily for the 2 weeks then 125 mg every other day for 2 weeks then discontinue it (3) Dementia: Code(s): F03.90 - Unspecified dementia, unspecified severity, without behavioral disturbance, psychotic disturbance, mood disturbance, and anxiety Category: Medical Plan: Continue donepezil (4) Hypothyroid: Code(s): E03.9 - Hypothyroidism, unspecified Category: Medical Plan: Continue levothyroxine (5) Urinary frequency: Code(s): R35.0 - Frequency of micturition Category: Medical Plan: For urinary incontinence patient will try estradiol vaginal cream Orders: Orders TSH reflex Free T4 4 Months E03.9 - Hypothyroidism, unspecified, E78.5 - Hyperlipidemia, unspecified, F03.90 - Unspecified dementia, unspecified severity, without behavioral disturbance, psychotic disturbance, mood disturbance, and anxiety, F32.9 - Major depressive disorder, single episode, unspecified, F41.9 - Anxiety disorder, unspecified Comprehensive [place]. Panel Fast 4 Months E03.9 - Hypothyroidism, unspecified, E78.5 - Hyperlipidemia, unspecified, F03.90 - Unspecified dementia, unspecified severity, without behavioral disturbance, psychotic disturbance, mood disturbance, and anxiety, F32.9 - Major depressive disorder, single episode, unspecified, F41.9 - Anxiety disorder, unspecified Complete Blood Count Auto Diff 4 Months E03.9 - Hypothyroidism, unspecified, E78.5 - Hyperlipidemia, unspecified, F03.90 - Unspecified dementia, unspecified severity, without behavioral disturbance, psychotic disturbance, mood disturbance, and anxiety, F32.9 - Major depressive disorder, single episode, unspecified, F41.9 - Anxiety disorder, unspecified Lipid Panel 4 Months E03.9 - Hypothyroidism, unspecified, E78.5 - Hyperlipidemia, unspecified, F03.90 - Unspecified dementia, unspecified severity, without behavioral disturbance, psychotic disturbance, mood disturbance, and anxiety, F32.9 - Major depressive disorder, single episode, unspecified, F41.9 - Anxiety disorder, unspecified Vitamin D 25-OH Total 4 Months E03.9 - Hypothyroidism, unspecified, E78.5 - Hyperlipidemia, unspecified, F03.90 - Unspecified dementia, unspecified severity, without behavioral disturbance, psychotic disturbance, mood disturbance, and anxiety, F32.9 - Major depressive disorder, single episode, unspecified, F41.9 - Anxiety disorder, unspecified Medications: New estradiol 0.01%(0.1mg/gram) Apply pea size to urethra opening vaginally QD; 42.5 grams 0RF
== END 2024-07-17 14:35 | disposition home or self-care (01) ==
PROVIDERS: PCP Internal Medicine; Visit Provider Internal Medicine
DX: E78.5 Hyperlipidemia, unspecified (principal); F41.9 Anxiety disorder, unspecified; F32.9 Major depressive disorder, single episode, unspecified; F03.90 Unspecified dementia, unspecified severity, without behavioral disturbance, psychotic disturbance, mood disturbance, and anxiety; E03.9 Hypothyroidism, unspecified; R35.0 Frequency of micturition

== ENCOUNTER → 2024-07-17 13:26 | Outpatient (BNVA) | payer MEDICARE, SELFPAY | PROVIDERS: PCP Internal Medicine; Visit Provider Internal Medicine | DX: E78.5 Hyperlipidemia, unspecified (principal); F41.9 Anxiety disorder, unspecified; F32.9 Major depressive disorder, single episode, unspecified; F03.90 Unspecified dementia, unspecified severity, without behavioral disturbance, psychotic disturbance, mood disturbance, and anxiety; E03.9 Hypothyroidism, unspecified; R35.0 Frequency of micturition | CPT/HCPCS: 96127; 99212 ==

== ENCOUNTER 2024-11-22 07:58 | Outpatient (REF) | payer MEDICARE, SELFPAY ==
--- OUTSIDE RECORDS SUMMARY | 2024-11-22 08:45 | XMS_ITS ---
Author Name NEIL NAIDU, RN, RD, RUTH Address [address] [place] [address] Phone [phone] [facility] Care Team Providers Care Pelts Skinner Name Role Phone NEIL RUTH Unavailable [phone] Reason for Referral Not Available Allergies, adverse reactions, alerts No known allergies Problem List No known problems Social History Sex Female Functional Status No Information Mental Status No Information Assessments Not Available Plan of Care Not Available
--- OUTSIDE RECORDS SUMMARY | 2024-11-22 08:45 | XMS_ITS | Clinical Summary ---
[facility] Address [address] [place] [address] Care Team Providers Care Air Valve Mechanic Name Role Phone Mitali Blanton MD Primary Care Provider [phone] Social History Tobacco Use Types Packs/Day Years [...] Documents on File Type Date Recorded Patient Health Insurance Agent Expl anation Health Care Decision (hx) 04/02/2024 [facility] Care Teams Air Valve Mechanic Relationship Specialty Start Date End Date Mitali Blanton MD [address] [place] [phone] PCP - General 01/26/15
[2024-11-22 10:06] LABS: MANUAL DIFF FLAG NO
[2024-11-22 10:10] LABS: Basophils Percent Auto 0.5 % (0-2); Eosinophils Percent Auto 0.4 % (0-4); Hematocrit 45.9 % (37.0-47.0); Hemoglobin 15.1 g/dl (12.0-16.0); Imm Gran Abs Auto 0.03 X10*3/uL (0.00-0.03); Imm Gran Pct Auto 0.4 % (0.0-0.4); Lymphocytes Absolute Auto 0.9 X10*3/uL (1.2-4.9); Lymphocytes Percent Auto 11.4 % (20-40); Mean Corpuscular HGB Conc 32.9 g/dl (31.0-35.0); Mean Corpuscular Volume 91.1 fL (80.0-98.0); Mean Platelet Volume 10.1 fL (9.4-12.3); Monocytes Absolute Auto 0.5 X10*3/uL (0.1-1.2); Monocytes Percent Auto 5.6 % (2-11); Neutrophils Absolute Auto 6.8 x10*3/uL (2.0-8.3); Neutrophils Percent Auto 81.7 % (45-73); Platelet Count 240 X10*3/uL (160-400); Red Blood Count 5.04 X10*6/uL (4.20-5.50); Red Cell Distribution Width 13.2 % (11.0-16.0); White Blood Count 8.3 X10*3/uL (4.8-10.8)
[2024-11-22 10:32] LABS: Alanine Aminotransferase 12 U/L (0-31); Albumin Level 3.6 g/dL (3.5-5.0); Alkaline Phosphatase 109 U/L (39-117); Anion Gap 12 (12-20); Aspartate Amino Transferase 20 U/L (5-31); Bilirubin Total 0.6 mg/dL (0.0-1.0); Blood Urea Nitrogen 13 mg/dL (9-16); Calcium 9.1 mg/dL (8.4-10.2); Carbon Dioxide 26 mmol/L (22-29); Chloride 109 mmol/L (96-108); Cholesterol 197 mg/dL (<200); Estimated Glomerular Filt Rate > 60; Glucose Fasting 83 mg/dL (60-99); HDL Cholesterol 53 mg/dL (>40); LDL Cholesterol Calculated 107 mg/dL (<100); Potassium 4.5 mmol/L (3.3-5.1); Sodium 142 mmol/L (135-145); Total Protein 6.9 g/dL (6.5-8.0); Triglycerides 186 mg/dL (<150)
[2024-11-22 10:56] LABS: TSH reflex Free T4 2.63 uIU/mL (0.32-4.0); Vitamin D 25-OH Total 47.5 ng/mL (>30)
== END 2024-11-22 07:59 | disposition home or self-care (01) ==
LOC: HO.HMGCLDS 07:58
PROVIDERS: PCP Internal Medicine; Visit Provider Internal Medicine
DX: Z00.00 Encounter for general adult medical examination without abnormal findings (principal); E78.5 Hyperlipidemia, unspecified; M81.0 Age-related osteoporosis without current pathological fracture; F03.90 Unspecified dementia, unspecified severity, without behavioral disturbance, psychotic disturbance, mood disturbance, and anxiety; Z79.899 Other long term (current) drug therapy; F41.9 Anxiety disorder, unspecified; F32.9 Major depressive disorder, single episode, unspecified; E03.9 Hypothyroidism, unspecified
CPT/HCPCS: 36415; 80053; 80061; 82306; 84443; 85025; 96127; 99397

== ENCOUNTER 2024-11-22 07:58 | Outpatient (AMB) | payer MEDICARE, SELFPAY ==
[2024-11-22 08:00] VITALS: BP 132/70; PULSE 87; TEMP 36.6; O2SAT 97; BMI 26.3
--- NOTE | 2024-11-22 08:00 | A.OFFPC_ITS ---
Vital Signs 11/22/24 08:00 Height 5 ft 2 in Weight 144 lb BMI 26.3 BP 132/70 Blood Pressure Location Lt brachial Position Sitting Pulse 87 Pulse Source Pulse Oximeter Temp 97.8 F Temp Source Oral Pulse Oximetry (%) 97 Intake Visit Reasons: Annual PE Allergies No Known Allergies Allergy (Verified 11/22/24 08:00) Medication List - Last Reconciled 11/22/24 by Mitali Blanton MD alendronate (Fosamax) 70 mg PO QWEEK cholecalciferol (vitamin D3) 25 mcg PO DAILY diaper,brief,adult,disposable (Briefs Medium) As directed disposable gloves (Biobrane Gloves Large) As directed [disposable wipes As directed] donepezil 5 mg PO BEDTIME gabapentin 100 mg PO BID levothyroxine 25 mcg PO DAILY paroxetine HCl 30 mg PO DAILY pravastatin 20 mg PO DAILY Shower Chair Shower chair with backrest [Transfer wheelchair with footrests As directed] Tobacco use date assessed: 11/22/24 Fall risk assessment: No Falls in past year Last assessed Fall Risk: 11/22/24 Dental Screening Dental Screen Date: 11/22/24 Did you have a dental visit in the last 12 months?: Yes Did you have a dental problem in the last 6 months where you did not have access to dental care?: No Was dental information given to patient?: Patient has dentist HPI Annual PE HPI Details Pt presents for PE PFSH Medical History (Updated 11/22/24 @ 08:28 by Mitali Blanton MD) Hyperlipidemia Anxiety and depression Annual physical exam Vitamin D deficiency Dementia Hypothyroid Surgical History No pertinent past surgical history Family History Father No problems noted. Mother Mental health disorder Social History Housing: Other Patient Tobacco Use Status: Never used Tobacco e-Cigarette/Vaping Use: Never Used Second Hand Smoke Exposure: No service: No Current occupational status: other Current occupational exposures/hazards: No Cognitive needs: No Hearing needs: No Vision needs: No Questionnaire PHQ-9 Over the last 2 weeks, how often have you been bothered by any of the following problems? 1. Little interest or pleasure in doing things: not at all 2. Feeling down, depressed, or hopeless: several days 3. Trouble falling or staying asleep, or sleeping too much: several days 4. Feeling tired or having little energy: several days 5. Poor appetite or overeating: not at all 6. Feeling bad about yourself - or that you are a failure or have let yourself or your family down: not at all 7. Trouble concentrating on things, such as reading the newspaper or watching television: several days 8. Moving or speaking so slowly that other people could have noticed. Or the opposite - being so fidgety or restless that you have been moving around a lot more than usual: several days 9. Thoughts that you would be better off or of hurting yourself in some way: not at all Total score: 5 Depression Screening Interpretation: Negative Depression Screening Done: Yes 45700 - PHQ-9 Billing: Yes Source: Developed by Drs. Reza Chin, Nabila Malin, Skinny Vásquez and colleagues, with an educational severiano from [employer]. Thrive Questionnaire Date Thrive assessed: 11/22/24 I am a: Parent/Caregiver What is your living situation today?: I have a steady place to live Within the past 12 months, did the food you bought not last and you didn't have the money to get more?: Never true Within the past 12 months, did you worry whether your food would run out before you got money to buy more?: Never true Do you have trouble paying for medicines?: No Do you have trouble getting transportation to medical appointments?: No Do you have trouble paying your heating and electricity bill?: No Do you have trouble taking care of your child, family member or friend?: No Do you have trouble with day-to-day activities such as bathing, preparing meals, shopping, managing finances, etc.?: Yes Are you currently unemployed and looking for a job?: No Are you interested in more education?: No Please select the resources that you would like help with: Daily support Currently or been in a relationship where the following occur: No concerns reported THRIVE Score: 0 AUDIT C Alcohol Use Questionnaire (AUDIT-C) 1. How often do you have a drink containing alcohol?: Never Total Score: 0 CINDY-7 AMB Questionnaire CINDY-7 Date CINDY - 7 assessed: 11/22/24 Feeling nervous, anxious, or on edge: 0 = Not at all Not being able to stop or control worryin = Not at all Worrying too much about different things: 0 = Not at all Trouble relaxin = Not at all Being so restless that it is hard to sit still: 0 = Not at all Becoming easily annoyed or irritable: 0 = Not at all Feeling afraid as if something awful might happen: 0 = Not at all Total CINDY-7 score (0-4 normal; 5-9 mild; 10-14 moderate; 15-21 severe): 0 Source: Developed by Drs. Reza Chin, Nabila Malin, Skinny Vásquez and colleagues, with an educational severiano from [employer]. CINDY-7 Assessment Billing CINDY-7 Assessment Tool: CINDY-7 Assessment 16173 Review of Systems Const All systems reviewed & are unremarkable except as noted in HPI and below Eyes Reports no additional complaints ENT Reports no additional complaints Card Reports no additional complaints Resp Reports no additional complaints GI Reports no additional complaints Reports no additional complaints Physical exam (Primary Care) Vital Signs: Last Vital Signs Temp 97.8 F 11/22/24 08:00 Pulse 87 11/22/24 08:00 BP 132/70 11/22/24 08:00 Pulse Ox 97 11/22/24 08:00 BMI result Body Mass Index 26.3 Tobacco/Smoking Status: Tobacco use Status Tobacco use date assessed 11/22/24 11/22/24 08:02 Patient Tobacco Use Status Never used Tobacco 11/22/24 08:02 e-Cigarette/Vaping Use Never Used 11/22/24 08:02 PHQ-9: PHQ-9 Score PHQ-9: Total score 5 11/22/24 08:02 Depression Screening Interpretation: Negative Thrive Assessment: Date of Thrive Assessment Date Thrive assessed 11/22/24 11/22/24 08:02 Currently or been in a relationship where the following occur: No concerns reported Const General: no acute distress HENMT Head: Yes normal to inspection Face and sinus: Yes normal facial exam Mouth: Normal oral and palatal mucosa present Eyes General: appearance normal, both eyes and all related structures Neck Neck: Yes supple Resp Effort & Inspection: normal respiratory effort Auscultation: clear to auscultation bilaterally Cardio Rhythm: regular rhythm Heart sounds: S1 normal heart sound present and S2 normal heart sound present GI Inspection: Yes normal to inspection Palpation (GI): Soft to palpation Percussion: Yes normal to percussion Auscultation: normal bowel sounds Coding Level of Care Code Est Pt Prev Care >65y(92668) Diagnoses Hyperlipidemia E78.5 Age related osteoporosis M81.0 Annual physical exam Z00.00 Dementia F03.90 Additional Codes CINDY-7 Assessment Billing - CINDY-7 Assessment Tool: CINDY-7 Assessment 86937 ([id number]) PHQ-9 - 10788 - PHQ-9 Billing: Yes ([id number]) Assessment & Plan Assessment & Plan (1) Hyperlipidemia: Code(s): E78.5 - Hyperlipidemia, unspecified Category: Medical Plan: cont statin (2) Age related osteoporosis: Comment: DEXA 12/2023 T score -2.5, started Fosamax, recheck DEXA 11/2025 Code(s): M81.0 - Age-related osteoporosis without current pathological fracture Category: Medical Plan: cont Alendronate and vit D, recheck DEXA IN 1 YR (3) Annual physical exam: Code(s): Z00.00 - Encounter for general adult medical examination without abnormal findings Category: Medical Plan: Well-balanced diet regular physical activity discussed with the patient (4) Dementia: Code(s): F03.90 - Unspecified dementia, unspecified severity, without behavioral disturbance, psychotic disturbance, mood disturbance, and anxiety Category: Medical Plan: Continue donepezil Medications: Discontinued estradiol 0.01%(0.1mg/gram) Discontinued Reason: Doctor's Order 0.5 grams vaginal DAILY 42.5 grams 1RF
--- OUTSIDE RECORDS SUMMARY | 2024-11-22 08:02 | XMS_ITS | Clinical Summary ---
Author Organization [facility] Address [address] [place] [address] Care Team Providers Care Skilled Nursing Case Manager Name Role Phone Mitali Blanton MD Primary Care Provider [phone] Social History Tobacco Use Types Packs/Day Years Used Date Smoking Tobacco: Never Assessed Comments Unknown Sex and Gender Information Value Date Recorded Sex Assigned at Not on file Legal Sex Female 3:42 PM EDT Gender Identity Not on file Sexual Orientation Not on file Plan of Treatment Health Maintenance Due Date Last Done Comments DTaP,Tdap,and Td Vaccines (1 - Tdap) 1962 Pneumococcal Vaccine: 50+ Ye ars (1 of 1 - PCV) 1993 Zoster Vaccines (1 of 2) 1993 RSV Immunization Patients 60 + Years Old (1 - 1-dose 75+ series) 2018 COVID-19 Vaccine ( - 2023-2 5 season) 2024 Influenza Vaccine (#1) 2024 Depression Screening 07/10/2024 Falls Risk Assessment 07/10/2024 Osteoporosis Screening (Bone Density Screening) 07/10/2024 Social Influencers of Health Screening 07/10/2024 HIB Vaccines Aged Out No longer eligi ble based on patient's age to complete this topic HPV Vaccines Aged Out No longer eligi ble based on patient's age to complete this topic Hepatitis A Vaccines Aged Out No long er eligible based on patient's age to complete this topic Hepatitis B Vaccines Aged Out No long er eligible based on patient's age to complete this topic IPV Vaccines Aged Out No longer eligi ble based on patient's age to complete this topic MMR Vaccines Aged Out No longer eligi ble based on patient's age to complete this topic Meningococcal ACWY Vaccine Aged Out N o longer eligible based on patient's age to complete this topic Meningococcal B Vacine Aged Out No lo nger eligible based on patient's age to complete this topic RSV Immunization Patients Un dylan 20 months Aged Out No longer eligible b ased on patient's age to complete this topic Varicella Vaccines Aged Out No longer eligible based on patient's age to complete this topic Advance Directives Documents on File Type Date Recorded Patient Person Investigator Expl anation Health Care Decision (hx) 04/02/2024 [facility] Care Teams Skilled Nursing Case Manager Relationship Specialty Start Date End Date Mitali Blanton MD [address] [place] [phone] PCP - General 01/26/15
--- OUTSIDE RECORDS SUMMARY | 2024-11-22 08:02 | XMS_ITS ---
Author Name NEIL NAIDU, RN, RD, RUTH Address [address] [place] [address] Phone [phone] [facility] Care Team Providers Care Bioinformatics Technician Name Role Phone NEIL RUTH Unavailable [phone] Reason for Referral Not Available Allergies, adverse reactions, alerts No known allergies Problem List No known problems Social History Sex Female Functional Status No Information Mental Status No Information Assessments Not Available Plan of Care Not Available
== END 2024-11-22 08:26 | disposition home or self-care (01) ==
PROVIDERS: PCP Internal Medicine; Visit Provider Internal Medicine
DX: E78.5 Hyperlipidemia, unspecified (principal); M81.0 Age-related osteoporosis without current pathological fracture; Z00.00 Encounter for general adult medical examination without abnormal findings; F03.90 Unspecified dementia, unspecified severity, without behavioral disturbance, psychotic disturbance, mood disturbance, and anxiety

== ENCOUNTER 2025-02-21 12:02 | Outpatient (AMB) | payer MEDICARE, SELFPAY ==
--- OUTSIDE RECORDS SUMMARY | 2025-02-21 12:04 | XMS_ITS ---
Author Name Aden NAIDU, RN, RD, Erendira Address [address] [place] [address] Phone [phone] [facility] Care Team Providers Care Jukebox Checker Name Role Phone Aden Erendira Unavailable [phone] Unavailable Unavailable [phone] Reason for Referral Not Available Allergies, adverse reactions, alerts No known allergies Problem List No known problems Social History Sex Female Functional Status No Information Mental Status No Information Assessments Not Available Plan of Care Not Available
[2025-02-21 12:30] VITALS: BP 130/70; PULSE 86; O2SAT 97; BMI 27.2
--- NOTE | 2025-02-21 12:30 | MHC.PC.OV ---
Vital Signs 02/21/25 12:30 Height 5 ft 2 in Weight 149 lb BMI 27.2 BP 130/70 Blood Pressure Location Rt brachial Position Sitting Pulse 86 Pulse Source Pulse Oximeter Pulse Oximetry (%) 97 Oxygen Delivery Method Room Air Intake Visit Reasons: Hospital follow up Hotel Director Required: No Accompanied by: Self / Same As Patient Allergies No Known Allergies Allergy (Verified 02/21/25 12:31) Medication List - Last Reconciled 02/21/25 by Mitali Blanton MD alendronate (Fosamax) 70 mg PO QWEEK cholecalciferol (vitamin D3) 25 mcg PO DAILY diaper,brief,adult,disposable (Briefs Medium) As directed disposable gloves (Biobrane Gloves Large) As directed [disposable wipes As directed] donepezil 5 mg PO BEDTIME gabapentin 200 mg PO BID levothyroxine 25 mcg PO DAILY olanzapine 5 mg PO BEDTIME olanzapine 2.5 mg PO .in AM olanzapine mg PO olanzapine 5 mg PO BEDTIME paroxetine HCl 45 mg (1.5 x 30 mg) PO DAILY pravastatin 20 mg PO DAILY Shower Chair Shower chair with backrest [Transfer wheelchair with footrests As directed] Tobacco use date assessed: 11/22/24 Fall risk assessment: No Falls in past year Last assessed Fall Risk: 02/21/25 Dental Screening Dental Screen Date: 11/22/24 [facility] Hospital follow up HPI Details Patient presents for the follow-up. She is fasting labs at [facility] for pneumonia and psychotic episode. She was discharged home yesterday but according to patient's caregiver she has episodes of sundowning agitation and confusion in the late afternoon. Patient reports insomnia. She has been taking paroxetine and olanzapine was added to take PRN. [facility] Medical History (Updated 02/21/25 @ 19:28 by Mitali Blanton MD) Sundowning Age related osteoporosis Hyperlipidemia Anxiety and depression Annual physical exam Vitamin D deficiency Dementia Hypothyroid Surgical History No pertinent past surgical history Family History Father No problems noted. Mother Mental health disorder Social History Housing: Other Patient Tobacco Use Status: Never used Tobacco e-Cigarette/Vaping Use: Never Used Second Hand Smoke Exposure: No service: No Current occupational status: other Current occupational exposures/hazards: No Cognitive needs: No Hearing needs: No Vision needs: No Questionnaire Thrive Questionnaire Date Thrive assessed: 02/21/25 I am a: Parent/Caregiver What is your living situation today?: I have a steady place to live Within the past 12 months, did the food you bought not last and you didn't have the money to get more?: Never true Within the past 12 months, did you worry whether your food would run out before you got money to buy more?: Never true Do you have trouble paying for medicines?: No Do you have trouble getting transportation to medical appointments?: No Do you have trouble paying your heating and electricity bill?: No Do you have trouble taking care of your child, family member or friend?: No Do you have trouble with day-to-day activities such as bathing, preparing meals, shopping, managing finances, etc.?: Yes Are you currently unemployed and looking for a job?: No Are you interested in more education?: No Please select the resources that you would like help with: Daily support Currently or been in a relationship where the following occur: No concerns reported THRIVE Score: 0 CINDY-7 AMB Questionnaire CINDY-7 Date CINDY - 7 assessed: 11/22/24 Source: Developed by Drs. Reza Chin, Nabila Malin, Skinny Vásquez and colleagues, with an educational severiano from [employer]. Review of Systems Const All systems reviewed & are unremarkable except as noted in HPI and below Eyes Reports no additional complaints ENT Reports no additional complaints Card Reports no additional complaints Resp Reports no additional complaints GI Reports no additional complaints Reports no additional complaints Physical exam (Primary Care) Vital Signs: Last Vital Signs Pulse 86 02/21/25 12:30 BP 130/70 02/21/25 12:30 Pulse Ox 97 02/21/25 12:30 Oxygen Delivery Method Room Air 02/21/25 12:30 BMI result Body Mass Index 27.2 Tobacco/Smoking Status: Tobacco use Status Tobacco use date assessed 11/22/24 02/21/25 12:30 Patient Tobacco Use Status Never used Tobacco 02/21/25 12:30 e-Cigarette/Vaping Use Never Used 02/21/25 12:30 Thrive Assessment: Date of Thrive Assessment Date Thrive assessed 02/21/25 02/21/25 12:32 Currently or been in a relationship where the following occur: No concerns reported Const General: no acute distress HENMT Head: Yes normal to inspection Face and sinus: Yes normal facial exam Throat: Yes posterior oropharynx normal Resp Effort & Inspection: normal respiratory effort Auscultation: clear to auscultation bilaterally Cardio Rhythm: regular rhythm Heart sounds: S1 normal heart sound present and S2 normal heart sound present GI Inspection: Yes normal to inspection Palpation (GI): Soft to palpation Percussion: Yes normal to percussion Auscultation: normal bowel sounds Coding Level of Care Code Est Pt Level 4 (59565) Complex EM visit Add On G2211 Diagnoses Anxiety and depression F41.9; F32.9 Dementia F03.90 Age related osteoporosis M81.0 Assessment & Plan Assessment & Plan (1) Anxiety and depression: Code(s): F41.9 - Anxiety disorder, unspecified; F32.9 - Major depressive disorder, single episode, unspecified Category: Medical Plan: Continue paroxetine and gabapentin, olanzapine 2.5 mg in the morning and 5 mg q.h.s. will be started follow-up in 1 month (2) Dementia: Code(s): F03.90 - Unspecified dementia, unspecified severity, without behavioral disturbance, psychotic disturbance, mood disturbance, and anxiety Category: Medical Plan: Patient will hold donepezil for 1 month because of agitation (3) Age related osteoporosis: Comment: DEXA 12/2023 T score -2.5, started Fosamax, recheck DEXA 11/2025 Code(s): M81.0 - Age-related osteoporosis without current pathological fracture Category: Medical Plan: Continue Fosamax Medications: New olanzapine 2.5 mg PO .in AM 30 tabs 0RF gabapentin 200 mg (2 x 100 mg) PO BID 120 caps 1RF olanzapine 5 mg PO BEDTIME 30 tabs 0RF
== END 2025-02-21 13:19 | disposition home or self-care (01) ==
LOC: HO.HMCC 12:03
PROVIDERS: PCP Internal Medicine; Visit Provider Internal Medicine
DX: F41.9 Anxiety disorder, unspecified (principal); F32.9 Major depressive disorder, single episode, unspecified; F03.90 Unspecified dementia, unspecified severity, without behavioral disturbance, psychotic disturbance, mood disturbance, and anxiety; M81.0 Age-related osteoporosis without current pathological fracture

== ENCOUNTER → 2025-02-21 12:02 | Outpatient (BNVA) | payer MEDICARE, SELFPAY | PROVIDERS: PCP Internal Medicine; Visit Provider Internal Medicine | DX: F41.9 Anxiety disorder, unspecified (principal); F32.9 Major depressive disorder, single episode, unspecified; F03.90 Unspecified dementia, unspecified severity, without behavioral disturbance, psychotic disturbance, mood disturbance, and anxiety; M81.0 Age-related osteoporosis without current pathological fracture | CPT/HCPCS: 99212 ==

== ENCOUNTER 2025-03-15 09:08 | Outpatient (REF) | payer MEDICARE, SELFPAY ==
--- NOTE | ~2025-03-15 | XR_ITS ---
CLINICAL HISTORY: R05.9 - Cough, unspecified 2 view chest x-ray Comparison: None Findings: There is consolidation in the left lower lobe, possible scarring or subsegmental atelectasis. There is elevated left hemidiaphragm. Heart size is normal. No acute fracture. IMPRESSION: 1. Elevated left hemidiaphragm with left lower lobe consolidation, acuity indeterminate. Comparison with prior exams, if available, would be of value. Otherwise no acute findings This document has been electronically signed by: Miguel Ángel Lemon MD on 03/17/2025 09:01:01
--- OUTSIDE RECORDS SUMMARY | 2025-03-15 09:10 | XMS_ITS ---
Author Name London Coleman APRN Address [address] [place] [address] Phone [phone] Organization [facility] Care Team Providers Care Principal Clerk Typist Name Role Phone Cheli Coleman Unavailable [phone] Unavailable Unavailable [phone] Reason for Referral Not Available Allergies, adverse reactions, alerts No known allergies Problem List No known problems Social History Sex Female Functional Status No Information Mental Status No Information Assessments Not Available Plan of Care Not Available
== END 2025-03-15 09:09 | disposition home or self-care (01) ==
LOC: HO.HMGCX 09:08
PROVIDERS: PCP Internal Medicine; Visit Provider Internal Medicine
DX: R05.9 Cough, unspecified (principal)
CPT/HCPCS: 71046

== ENCOUNTER → 2025-03-15 09:11 | Outpatient (BNV) | payer MEDICARE, SELFPAY | PROVIDERS: PCP Internal Medicine; Visit Provider Specialist | DX: R05.9 Cough, unspecified (principal) | CPT/HCPCS: 71046 ==

== ENCOUNTER 2025-03-21 09:11 | Outpatient (AMB) | payer MEDICARE, SELFPAY ==
[2025-03-21 09:13] VITALS: BP 124/78; PULSE 87; RESP 21; TEMP 36.9; O2SAT 95; BMI 27.8
--- NOTE | 2025-03-21 09:13 | A.OFFPC_ITS ---
Vital Signs 03/21/25 09:13 Height 5 ft 2 in Weight 152 lb BMI 27.8 BP 124/78 Blood Pressure Location Rt brachial Position Sitting Respiration 21 H Pulse 87 Pulse Source Pulse Oximeter Temp 98.4 F Temp Source Oral Pulse Oximetry (%) 95 Oxygen Delivery Method Room Air Intake Visit Reasons: 1 month f/up Intake Note: Pt is here today for 1 month follow up visit. Allergies No Known Allergies Allergy (Verified 03/21/25 09:16) Medication List - Last Reconciled 03/21/25 by Mitali Blanton MD alendronate (Fosamax) 70 mg PO QWEEK cholecalciferol (vitamin D3) 25 mcg PO DAILY diaper,brief,adult,disposable (Briefs Medium) As directed disposable gloves (Biobrane Gloves Large) As directed [disposable wipes As directed] donepezil 5 mg PO BEDTIME gabapentin 200 mg (2 x 100 mg) PO BID levothyroxine 25 mcg PO DAILY olanzapine 2.5 mg PO .in AM olanzapine 5 mg PO BEDTIME paroxetine HCl 45 mg (1.5 x 30 mg) PO DAILY pravastatin 20 mg PO DAILY Shower Chair Shower chair with backrest [Transfer wheelchair with footrests As directed] Tobacco use date assessed: 03/21/25 Fall risk assessment: No Falls in past year Last assessed Fall Risk: 03/21/25 Dental Screening Dental Screen Date: 11/22/24 HPI 1 month f/up HPI Details Pt presents for f/u depression, psychosis memory impairment better on current medications. patient's caregiver noticed that she has been getting tachypneic and wheezing when walking up the stairs. Patient denies shortness or breath pleurisy cough fever chills or night sweats. [facility] Medical History (Updated 03/21/25 @ 12:34 by Mitali Blanton MD) Sundowning Age related osteoporosis Hyperlipidemia Anxiety and depression Annual physical exam Vitamin D deficiency Dementia Hypothyroid Surgical History No pertinent past surgical history Family History Father No problems noted. Mother Mental health disorder Social History (Reviewed 03/21/25 @ 09:19 by EFREN SchmidtLena Housing: Other Patient Tobacco Use Status: Never used Tobacco e-Cigarette/Vaping Use: Never Used Second Hand Smoke Exposure: No service: No Current occupational status: other Current occupational exposures/hazards: No Cognitive needs: No Hearing needs: No Vision needs: No Questionnaire Thrive Questionnaire Date Thrive assessed: 11/22/24 I am a: Parent/Caregiver What is your living situation today?: I have a steady place to live Within the past 12 months, did the food you bought not last and you didn't have the money to get more?: Never true Within the past 12 months, did you worry whether your food would run out before you got money to buy more?: Never true Do you have trouble paying for medicines?: No Do you have trouble getting transportation to medical appointments?: No Do you have trouble paying your heating and electricity bill?: No Do you have trouble taking care of your child, family member or friend?: No Do you have trouble with day-to-day activities such as bathing, preparing meals, shopping, managing finances, etc.?: Yes Are you currently unemployed and looking for a job?: No Are you interested in more education?: No Please select the resources that you would like help with: Daily support Currently or been in a relationship where the following occur: No concerns reported THRIVE Score: 0 CINDY-7 AMB Questionnaire CINDY-7 Date CINDY - 7 assessed: 11/22/24 Source: Developed by Drs. Reza Chin, Nabila Malin, Skinny Vásquez and colleagues, with an educational severiano from [employer]. Review of Systems Const All systems reviewed & are unremarkable except as noted in HPI and below Eyes Reports no additional complaints ENT Reports no additional complaints Card Reports no additional complaints Resp Reports no additional complaints GI Reports no additional complaints Reports no additional complaints Physical exam (Primary Care) Vital Signs: Last Vital Signs Temp 98.4 F 03/21/25 09:13 Pulse 87 03/21/25 09:13 Resp 21 H 03/21/25 09:13 BP 124/78 03/21/25 09:13 Pulse Ox 95 03/21/25 09:13 Oxygen Delivery Method Room Air 03/21/25 09:13 BMI result Body Mass Index 27.8 Tobacco/Smoking Status: Tobacco use Status Tobacco use date assessed 03/21/25 03/21/25 09:21 Patient Tobacco Use Status Never used Tobacco 03/21/25 09:21 e-Cigarette/Vaping Use Never Used 03/21/25 09:14 Thrive Assessment: Date of Thrive Assessment Date Thrive assessed 11/22/24 03/21/25 09:14 Currently or been in a relationship where the following occur: No concerns reported Const General: no acute distress HENMT Head: Yes normal to inspection Throat: Yes posterior oropharynx normal Neck Neck: Yes supple Resp Effort & Inspection: normal respiratory effort Auscultation: diminished lung sounds on the left in the lower lung ricketts Cardio Rhythm: regular rhythm Heart sounds: S1 normal heart sound present and S2 normal heart sound present GI Inspection: Yes normal to inspection Palpation (GI): Soft to palpation Percussion: Yes normal to percussion Auscultation: normal bowel sounds Office Procedures Nebulizer Treatment Nebulizer Treatment [id number]/[id number] RX initial, or Nebulizer Subsequent Treatment Office Meds ipratropium 0.5 mg-albuterol 3 mg (2.5 mg base)/3 mL nebulization soln Performing Provider: Mitali Blanton MD Performing Location: [facility] Administered by: Laura Snyder RN on 03/21/25 09:49 Dose Route Admin Location Dispensed Lot Number Expiration Date [facility] Templer Head 3 mL inhalation 3 mL [id number] 11/29/25 37318-092-60 [facility] Coding Level of Care Code Est Pt Level 4 (15196) Diagnoses LLL pneumonia J18.9 Anxiety and depression F41.9; F32.9 CPT Codes Nebulizer Treatment - Nebulizer Treatment, initial or subsequent: [id number]/MDI RX initial, or Nebulizer Subsequent Treatment ([id number]) Assessment & Plan Assessment & Plan (1) LLL pneumonia: Comment: CXR 03/15/2025 left lower lobe consolidation scarring versus atelectasis indeterminate acuity Code(s): J18.9 - Pneumonia, unspecified organism Category: Medical Plan: Obtain CT of the chest to evaluate. Start DuoNeb twice a day for wheezing and mucus plugging. Patient will follow-up in 2 weeks (2) Anxiety and depression: Comment: Episodes of psychosis Code(s): F41.9 - Anxiety disorder, unspecified; F32.9 - Major depressive disorder, single episode, unspecified Category: Medical Plan: Continue current medications Orders: Orders CT chest wo con - High Res Today J18.9 - Pneumonia, unspecified organism AMB Nebulizer Treatment Today R05.9 - Cough, unspecified Medications: New ipratropium-albuterol 0.5 mg-3 mg(2.5 mg base)/3 mL 3 mL inhalation BID 180 mL 0RF nebulizers Nebulizer with supplies and face mask 1 ea 0RF F03.90 - Unspecified dementia, unspecified severity, without behavioral disturbance, psychotic disturbance, mood disturbance, and anxiety, J18.9 - Pneumonia, unspecified organism nebulizers With face mask 1 ea 0RF J18.9 - Pneumonia, unspecified organism, R05.9 - Cough, unspecified, R06.2 - Wheezing Discontinued donepezil Discontinued Reason: Doctor's Order 5 mg PO BEDTIME 90 tabs 3RF olanzapine Discontinued Reason: Doctor's Order 5 mg PO BEDTIME 30 tabs 0RF
--- OUTSIDE RECORDS SUMMARY | 2025-03-21 09:29 | XMS_ITS ---
Author Name London Coleman APRN Address [address] [place] [address] Phone [phone] Organization [facility] Care Team Providers Care Flame Cutter Name Role Phone Cheli Coleman Unavailable [phone] Unavailable Unavailable [phone] Reason for Referral Not Available Allergies, adverse reactions, alerts No known allergies Problem List No known problems Social History Sex Female Functional Status No Information Mental Status No Information Assessments Not Available Plan of Care Not Available
== END 2025-03-21 12:35 | disposition home or self-care (01) ==
LOC: HO.HMCC 09:12
PROVIDERS: PCP Internal Medicine; Visit Provider Internal Medicine
DX: J18.9 Pneumonia, unspecified organism (principal); F41.9 Anxiety disorder, unspecified; F32.9 Major depressive disorder, single episode, unspecified; R05.9 Cough, unspecified

== ENCOUNTER → 2025-03-21 09:11 | Outpatient (BNVA) | payer MEDICARE, SELFPAY | PROVIDERS: PCP Internal Medicine; Visit Provider Internal Medicine | DX: J18.9 Pneumonia, unspecified organism (principal); F41.9 Anxiety disorder, unspecified; F32.9 Major depressive disorder, single episode, unspecified | CPT/HCPCS: 94640; 99212 ==

== ENCOUNTER 2025-09-09 12:07 | Outpatient (AMB) | payer MEDICARE, SELFPAY ==
--- NOTE | 2025-09-09 12:32 | MHC.PC.OV ---
Vital Signs 09/09/25 12:33 Height 5 ft 2 in Weight 160 lb BMI 29.3 BP 118/82 Blood Pressure Location Rt brachial Position Sitting Respiration 20 Pulse 83 Pulse Source Pulse Oximeter Temp 98.3 F Temp Source Oral Pulse Oximetry (%) 94 Oxygen Delivery Method Room Air Intake Visit Reasons: breathing problems per caregiver Intake Note: Pt is here today for a sick visit. Pt's caregiver states that pt has been having breathing issues since yesterday. Allergies No Known Allergies Allergy (Verified 09/09/25 12:46) Medication List - Last Reconciled 09/09/25 by Mitali Blanton MD alendronate (Fosamax) 70 mg PO QWEEK cholecalciferol (vitamin D3) 25 mcg PO DAILY diaper,brief,adult,disposable (Briefs Medium) As directed disposable gloves (Biobrane Gloves Large) As directed [disposable wipes As directed] gabapentin 200 mg (2 x 100 mg) PO BID ipratropium-albuterol 0.5 mg-3 mg(2.5 mg base)/3 mL 3 mL inhalation BID levothyroxine 25 mcg PO DAILY nebulizers Nebulizer with supplies and face mask nebulizers With face mask olanzapine 2.5 mg PO .in AM paroxetine HCl 45 mg (1.5 x 30 mg) PO DAILY pravastatin 20 mg PO DAILY Shower Chair Shower chair with backrest [Transfer wheelchair with footrests As directed] Tobacco use date assessed: 09/09/25 Fall risk assessment: No Falls in past year Last assessed Fall Risk: 09/09/25 Dental Screening Dental Screen Date: 11/22/24 HPI breathing problems per caregiver HPI Details Patient presents for the follow-up with her caregiver her keep giving reports nurses from daycare concern about patient's episodes of tachypnea and intermittent wheezing on and off. Patient was noted to have dyspnea on exertion with minimal activity. Patient denies cough fever chills pleurisy. She was evaluated by a bariatric surgeon at [facility] for large hiatal hernia and a surgery is being considered. [facility] Medical History (Updated 09/09/25 @ 13:19 by Mitali Blanton MD) LLL pneumonia Large hiatal hernia Sundowning Age related osteoporosis Hyperlipidemia Anxiety and depression Annual physical exam Vitamin D deficiency Dementia Hypothyroid Surgical History No pertinent past surgical history Family History Father No problems noted. Mother Mental health disorder Social History Housing: Other Patient Tobacco Use Status: Never used Tobacco e-Cigarette/Vaping Use: Never Used Second Hand Smoke Exposure: No service: No Current occupational status: other Current occupational exposures/hazards: No Cognitive needs: No Hearing needs: No Vision needs: No Questionnaire Thrive Questionnaire Date Thrive assessed: 11/22/24 I am a: Parent/Caregiver What is your living situation today?: I have a steady place to live Within the past 12 months, did the food you bought not last and you didn't have the money to get more?: Never true Within the past 12 months, did you worry whether your food would run out before you got money to buy more?: Never true Do you have trouble paying for medicines?: No Do you have trouble getting transportation to medical appointments?: No Do you have trouble paying your heating and electricity bill?: No Do you have trouble taking care of your child, family member or friend?: No Do you have trouble with day-to-day activities such as bathing, preparing meals, shopping, managing finances, etc.?: Yes Are you currently unemployed and looking for a job?: No Are you interested in more education?: No Please select the resources that you would like help with: Daily support Currently or been in a relationship where the following occur: No concerns reported THRIVE Score: 0 CINDY-7 AMB Questionnaire CINDY-7 Date CINDY - 7 assessed: 11/22/24 Source: Developed by Drs. Reza Chin, Nabila Malin, Skinny Vásquez and colleagues, with an educational severiano from [employer]. Review of Systems Const All systems reviewed & are unremarkable except as noted in HPI and below Eyes Reports no additional complaints ENT Reports no additional complaints Card Reports no additional complaints Resp Reports no additional complaints GI Reports no additional complaints Reports no additional complaints Physical exam (Primary Care) Vital Signs: Last Vital Signs Temp 98.3 F 09/09/25 12:33 Pulse 83 09/09/25 12:33 Resp 20 12/09/25 12:33 BP 118/82 09/09/25 12:33 Pulse Ox 94 09/09/25 12:33 Oxygen Delivery Method Room Air 09/09/25 12:33 BMI result Body Mass Index 29.3 Tobacco/Smoking Status: Tobacco use Status Tobacco use date assessed 09/09/25 09/09/25 12:47 Patient Tobacco Use Status Never used Tobacco 09/09/25 12:33 e-Cigarette/Vaping Use Never Used 09/09/25 12:33 Thrive Assessment: Date of Thrive Assessment Date Thrive assessed 11/22/24 09/09/25 12:33 Currently or been in a relationship where the following occur: No concerns reported Const General: no acute distress HENMT Head: Yes normal to inspection Face and sinus: Yes normal facial exam Neck Neck: Yes no lymphadenopathy and Yes supple Resp Effort & Inspection: normal respiratory effort Auscultation: diminished lung sounds (at bases b/l) Cardio Rhythm: regular rhythm Heart sounds: S1 normal heart sound present, S2 normal heart sound present and Murmur heart sound present systolic II/ and at the left sternal border GI Inspection: Yes normal to inspection Palpation (GI): Soft to palpation Percussion: Yes normal to percussion Coding Level of Care Code Est Pt Level 4 (96125) Diagnoses Heart murmur R01.1 Large hiatal hernia K44.9 Assessment & Plan Assessment & Plan (1) Heart murmur: Code(s): R01.1 - Cardiac murmur, unspecified Category: Medical Plan: EKG showed sinus rhythm with sinus arrhythmia no significant ST-T changes, Obtain echocardiogram to evaluate for ejection fraction and heart murmur (2) Large hiatal hernia: Comment: on chest CT [facility] 04/2025, f/u with bariatric surgeon [place] Code(s): K44.9 - Diaphragmatic hernia without obstruction or gangrene Category: Medical Plan: Patient will follow-up with bariatric surgeon at [place] Orders: Orders CA echo transthoracic complete Today R01.1 - Cardiac murmur, unspecified
[2025-09-09 12:33] VITALS: BP 118/82; PULSE 83; RESP 20; TEMP 36.8; O2SAT 94; BMI 29.3
== END 2025-09-09 13:40 | disposition home or self-care (01) ==
LOC: HO.HMCC 12:08
PROVIDERS: PCP Internal Medicine; Visit Provider Internal Medicine
DX: R01.1 Cardiac murmur, unspecified (principal); K44.9 Diaphragmatic hernia without obstruction or gangrene

== ENCOUNTER → 2025-09-09 12:07 | Outpatient (BNVA) | payer MEDICARE, SELFPAY | PROVIDERS: PCP Internal Medicine; Visit Provider Internal Medicine | DX: R01.1 Cardiac murmur, unspecified (principal); K44.9 Diaphragmatic hernia without obstruction or gangrene | CPT/HCPCS: 99212 ==

== ENCOUNTER 2025-10-01 10:50 | Outpatient (AMB) | payer MEDICARE, SELFPAY ==
[2025-10-01 10:58] VITALS: BP 104/66; PULSE 89; RESP 18; TEMP 36.7; O2SAT 94; BMI 28.7
--- NOTE | 2025-10-01 10:58 | MHC.PC.OV ---
Vital Signs 10/01/25 10:58 Height 5 ft 2 in Weight 157 lb BMI 28.7 BP 104/66 Blood Pressure Location Rt brachial Position Sitting Respiration 18 Pulse 89 Pulse Source Pulse Oximeter Temp 98.1 F Temp Source Oral Pulse Oximetry (%) 94 Oxygen Delivery Method Room Air Intake Visit Reasons: HDF Intake Note: Pt is here today for HDF. Allergies No Known Allergies Allergy (Verified 10/01/25 11:03) Tobacco use date assessed: 09/09/25 Fall risk assessment: No Falls in past year Last assessed Fall Risk: 10/01/25 Dental Screening Dental Screen Date: 11/22/24 HPI HDF HPI Details Patient presents for the hospital discharge follow-up. She was hospitalized at [facility] from 07/11 to 09/12 for hypoxia and aspiration pneumonia. Patient was treated with antibiotics recovered well. She has supplemental O2 to use as needed for O2 saturation less than 88 which she has not been needing. She denies shortness or breath cough chest pain. [facility] Medical History LLL pneumonia Large hiatal hernia [employer]owning Age related osteoporosis Hyperlipidemia Anxiety and depression Annual physical exam Vitamin D deficiency Dementia Hypothyroid Surgical History No pertinent past surgical history Family History Father No problems noted. Mother Mental health disorder Social History Housing: Other Patient Tobacco Use Status: Never used Tobacco e-Cigarette/Vaping Use: Never Used Second Hand Smoke Exposure: No service: No Current occupational status: other Current occupational exposures/hazards: No Cognitive needs: No Hearing needs: No Vision needs: No Questionnaire Thrive Questionnaire Date Thrive assessed: 11/22/24 I am a: Parent/Caregiver What is your living situation today?: I have a steady place to live Within the past 12 months, did the food you bought not last and you didn't have the money to get more?: Never true Within the past 12 months, did you worry whether your food would run out before you got money to buy more?: Never true Do you have trouble paying for medicines?: No Do you have trouble getting transportation to medical appointments?: No Do you have trouble paying your heating and electricity bill?: No Do you have trouble taking care of your child, family member or friend?: No Do you have trouble with day-to-day activities such as bathing, preparing meals, shopping, managing finances, etc.?: Yes Are you currently unemployed and looking for a job?: No Are you interested in more education?: No Currently or been in a relationship where the following occur: No concerns reported THRIVE Score: 0 CINDY-7 AMB Questionnaire CINDY-7 Date CINDY - 7 assessed: 11/22/24 Source: Developed by Drs. Reza Chin, Nabila Malin, Skinny Vásquez and colleagues, with an educational severiano from [employer]. Review of Systems Const All systems reviewed & are unremarkable except as noted in HPI and below ENT Reports no additional complaints Card Reports no additional complaints Resp Reports no additional complaints GI Reports no additional complaints Reports no additional complaints Musc Reports no additional complaints Physical exam (Primary Care) Vital Signs: Last Vital Signs Temp 98.1 F 10/01/25 10:58 Pulse 89 10/01/25 10:58 Resp 18 10/01/25 10:58 BP 104/66 10/01/25 10:58 Pulse Ox 94 10/01/25 10:58 Oxygen Delivery Method Room Air 10/01/25 10:58 BMI result Body Mass Index 28.7 Tobacco/Smoking Status: Tobacco use Status Tobacco use date assessed 09/09/25 10/01/25 10:58 Patient Tobacco Use Status Never used Tobacco 10/01/25 10:58 e-Cigarette/Vaping Use Never Used 10/01/25 10:58 Thrive Assessment: Date of Thrive Assessment Date Thrive assessed 11/22/24 10/01/25 10:58 Currently or been in a relationship where the following occur: No concerns reported Const General: no acute distress HENMT Mouth: Normal oral and palatal mucosa present Neck Neck: Yes supple Resp Effort & Inspection: normal respiratory effort Auscultation: diminished lung sounds Cardio Rhythm: regular rhythm Heart sounds: S1 normal heart sound present and S2 normal heart sound present Coding Level of Care Code Est Pt Level 4 (68357) Diagnoses Anxiety and depression F41.9; F32.9 Hyperlipidemia E78.5 Large hiatal hernia K44.9 Assessment & Plan Assessment & Plan (1) Anxiety and depression: Comment: Episodes of psychosis Code(s): F41.9 - Anxiety disorder, unspecified; F32.9 - Major depressive disorder, single episode, unspecified Category: Medical Plan: Continue current medications (2) Hyperlipidemia: Code(s): E78.5 - Hyperlipidemia, unspecified Category: Medical Plan: Continue statin (3) Large hiatal hernia: Comment: on chest [facility] 04/2025, f/u with bariatric surgeon [place] Code(s): K44.9 - Diaphragmatic hernia without obstruction or gangrene Category: Medical Plan: Patient follows up with thoracic surgeon, aspiration precautions discussed with the patient's caregiver
--- OUTSIDE RECORDS SUMMARY | 2025-10-01 12:19 | XMS_ITS ---
Author Name London Coleman APRN Address [address] [place] [address] Phone [phone] Organization [facility] Care Team Providers Care Distance Learning Program Coordinator Name Role Phone Cheli Coleman Unavailable [phone] Unavailable Unavailable [phone] Unavailable Unavailable [phone] Reason for Referral Not Available Allergies, adverse reactions, alerts No known allergies Problem List No known problems Social History Sex Female Functional Status No Information Mental Status No Information Assessments Not Available Plan of Care Not Available
--- OUTSIDE RECORDS SUMMARY | 2025-10-01 12:20 | XMS_ITS | Encounter Summary ---
Author Organization [facility] Address [address] [place] [address] Care Team Providers Care Mattress Filler Name Role Phone Mitali Blanton MD Primary Care Provider [phone] Reason for Visit * Reason Onset Date Comments QUESTIONS/FORMS 09/11/2025 Encounter Details Date Type Department Care Team ([facility] st Contact Info) Description 09/11/2025 Telephone General Surgery - [place] [address] [phone] Kenyon Salcedo MD [address] [address] Social History Tobacco Use Types Packs/Day Years Used Date Smoking Tobacco: Never Smokeless Tobacco: Never Interpersonal Safety Answer Date Record ed Physical Abuse Unrecognized value 09/11/2025 Verbal Abuse Unrecognized value 09/11/2025 Comments Unknown Sex and Gender Information Value Date Recorded Sex Assigned at Not on file Legal Sex Female 3:42 PM EDT Gender Identity Not on file Sexual Orientation Not on file documented as of this encounter Progress Notes * Nellie Mccloud - 09/11/2025 10:04 AM EST [facility] LINOTYPE MACHINIST APPRENTICE CALLED. SHE'S INFORMED THAT THE PT WAS ADMITTED TO THE ER TODAY 09/11/2025. FOR DIFFICULTY BREATHING, RESPIRATION WAS REALLY HIGH. PT IS IN VERY HIGH DISCOMFORT. CAN SHEBE SEEN AT THE HOSPITAL? [place] [phone] documented in this encounter Plan of Treatment Upcoming Encounters Date Type Department Care Team (Late st Contact Info) Description 11/21/2025 8:30 AM EST Office Visit General Surgery - [place] [address] [place] [phone] Kenyon Salcedo MD 175 [facility] [place] [address] [place] [phone] documented as of this encounter Visit Diagnoses Not on filedocumented in this encounter Care Teams Mattress Filler Relationship Specialty Start Date End Date Mitali Blanton MD [address] [place] [phone] PCP - General 01/26/15 documented as of this encounter
--- OUTSIDE RECORDS SUMMARY | 2025-10-01 12:20 | XMS_ITS | Clinical Summary ---
Author Organization [facility] Address [address] [place] [address] Phone Care Team Providers Care Tourist Agent Name Role Phone Mitali Blanton MD Primary Care Provider [phone] Allergies No known active allergies Medications alendronate (FOSAMAX) 70 mg tablet Take 1 tablet (70 mg total) by mouth every 7 (seven) days. 4 Active donepeziL (ARICEPT) 5 mg tablet Take 1 tablet (5 mg total) by mouth at bedtime. 4 Active gabapentin (NEURONTIN) 100 mg capsule Take 2 capsules (200 mg total) by mouth 2 (two) times a day. 4 Active levothyroxine sodium (TIROSINT) 25 mcg capsule Take 1 capsule (25 mcg total) by mouth 1 (one) time each day. 4 Active PARoxetine (PAXIL) 30 mg tablet Take 45 mg by mouth 1 (one) time each day in the morning. Active pravastatin (PRAVACHOL) 20 mg tablet Take 1 tablet (20 mg total) by mouth at bedtime. Active ipratropium-al buteroL (DUONEB) 0.5-2.5 mg/3 mL nebulizer solution Take 3 mL by nebulization 4 (four) times a day if needed for wheezing or shortness of breath. Active OLANZapine (ZyPREXA) 2.5 mg tablet Take 1 tablet (2.5 mg total) by mouth 1 (one) time each day in the morning. Active cholecalcifero l (VITAMIN D-3) 25 mcg (1,000 unit) capsule Take 1 capsule (1,000 Units total) by mouth 1 (one) time each day. Active cefpodoxime (VANTIN) 200 mg tablet Take 1 tablet (200 mg total) by mouth 2 (two) times a day for 5 days. 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 Delirium 02/02/2025 Encounters Date Type Department Care Team Description 09/11/[address] [phone] Kenyon Salcedo MD 09/10/2025 4:26 PM EST - 09/12/2025 1:39 PM EST Hospital Encounter [facility] [address] [place] [address] Akhil Hernandez MD Kokkinos, Erika, MD Jones, Christopher, MD Japaridze, Anna, MD Martin, Ana Ortiz MD Acute hypoxic respiratory failure (CMS/HCC V24, CMS/HCC V28) (Primary Dx); Shortness of breath; Elevated troponin Discharge Disposition: Home or Self Care 08/21/2025 4:00 PM EST Consult [address] [address] Kenyon Salcedo MD Paraesophageal hernia (Primary Dx) from Last 3 Months Social History Tobacco Use Types Packs/Day Years Used Date Smoking Tobacco: Never Smokeless Tobacco: Never Tobacco Cessation:Counseling Given: Not Answered Interpersonal Safety Answer Date Record ed Physical Abuse Unrecognized value 09/11/2025 Verbal Abuse Unrecognized value 09/11/2025 Comments Unknown Sex and Gender Information Value Date Recorded Sex Assigned at Not on file Legal Sex Female 3:42 PM EDT Gender Identity Not on file Sexual Orientation Not on file Last Filed Vital Signs Vital Sign Reading Time Taken Comments Blood Pressure 140/85 09/12/2025 11:38 AM EST Pulse 86 09/12/2025 11:38 AM EST Temperature 36.7 C (98.1 F) 09/12/2025 11:38 AM EST Respiratory Rate 18 09/12/2025 11:38 AM EST Oxygen Saturation 97% 09/12/2025 11:38 AM EST Inhaled Oxygen Concentration - - Weight 68 kg (150 lb) 09/12/2025 7:15 AM EST Height 154.9 cm (5' 0.98 ) 09/12/2025 7:15 AM ES T Body Mass Index 28.36 09/12/2025 7:15 AM EST Plan of Treatment Upcoming Encounters Date Type Department Care Team ([facility] st Contact Info) Description 11/21/2025 8:30 AM EST Office Visit General Surgery - [place] [address] [facility] [address] [place] [phone] Kenyon Salcedo MD [address] [facility] [address] [place] [id number] Health Maintenance Due Date Last Done Comments DTaP,Tdap,and Td Vaccines (1 - Tdap) 1962 Zoster Vaccines (1 of 2) 1993 RSV Immunization Adult Patients (1 - 1-dose 75+ series) 2018 Pneumococcal Vaccine: 50+ Years (2 of 2 - PCV) 08/08/2018 08/08/2017 Cholesterol Screening (Lipid Panel) 07/10/2024 Medicare Annual Wellness Visit 07/10/2024 Osteoporosis Screening (Bone Density Screening) 07/10/2024 Social Influencers of Health Screening 07/10/2024 Depression Screening 10/02/2024 COVID-19 Vaccine (3 - season) 2025 11/25/2021, 10/21/2021 Influenza Vaccine (#1) 2025 2, 08/08/2017, 09/24/2015, Additional history exists Falls Risk Assessment 09/12/2026 09/12/2025 HIB Vaccines Aged Out No longer eligi [...] age to complete this topic Meningococcal B Vaccine Aged Out No l onger eligible based on patient's age to complete this topic RSV Immunization Patients Under 20 months Aged Out No longer eligible based on patient's age to complete this topic Varicella Vaccines Aged Out No longer eligible based on patient's age to complete this topic Procedures Procedure Name Priority Date/Time Associated Diagnosis Comments ECG ANNOTATED 09/15/2025 HOME O2 EVAL (DESATURATION SCREEN) Routine 09/12/2025 8:26 AM EST TRANSTHORACIC ECHOCARDIOGRAM (TTE) COMPLETE W/ CONTRAST Routine 09/12/2025 7:45 AM EST Elevated troponin TROPONIN I HIGH SENSITIVITY Routine 09/11/2025 5:56 AM EST CBC WITH AUTO DIFFERENTIAL Routine 09/11/2025 5:56 AM EST CBC AND DIFFERENTIAL Routine 09/11/2025 5:56 AM EST BASIC METABOLIC PANEL Routine 09/11/2025 5:[address] ANGIO CHEST WO AND/OR W CONTRAST STAT 09/10/2025 9:40 PM EST Shortness of breath D-DIMER STAT 09/10/2025 8:[address] HEAD WO CONTRAST STAT 09/10/2025 7 :48 PM EST ECG 12-LEAD STAT 09/10/2025 7:40 PM EST B-TYPE NATRIURETIC PEPTIDE STAT 09/10/2025 6:28 PM EST TROPONIN I HIGH SENSITIVITY Timed 09/10/2025 6:28 PM EST CULTURE BLOOD STAT 09/10/2025 6:28 PM EST HEARN URINE CULTURE TUBE STAT 09/10/20 25 5:44 PM EST URINALYSIS WITH REFLEX MICROSCOPIC AND CULTURE STAT 09/10/2025 5:44 PM EST URINALYSIS WITH REFLEX MICROSCOPIC AND CULTURE STAT 09/10/2025 5:44 PM EST CULTURE URINE STAT 09/10/2025 5:44 PM EST XR CHEST 1 VIEW STAT 09/10/2025 5:04 PM EST RESPIRATORY VIRUS PANEL MOLECULAR STUDY STAT 09/10/2025 5:02 PM EST VENOUS BLOOD GAS STAT 09/10/2025 4:59 PM EST AMMONIA STAT 09/10/2025 4:59 PM EST CBC WITH AUTO DIFFERENTIAL STAT 09/10/2025 4:59 PM EST LACTATE STAT 09/10/2025 4:59 PM EST TROPONIN I HIGH SENSITIVITY Timed 09/10/2025 4:59 PM EST MAGNESIUM STAT 09/10/2025 4:59 PM EST BASIC METABOLIC PANEL STAT 09/10/2025 4:59 PM EST CBC AND DIFFERENTIAL STAT 09/10/2025 4:59 PM EST CULTURE BLOOD STAT 09/10/2025 4:59 PM EST from Last 3 Months Results * ECG-Annotated (09/15/2025) us Provider Onbase MD ECG ORDERABLES Final Result * TRANSTHORACIC ECHOCARDIOGRAM (TTE) COMPLETE W/ CONTRAST (09/12/2025 7:45 AM EST) BSA 1.71 m2 CV PACS Left Atrium Minor [place] 5.7 cm CV PACS Left Atrium Major [place] 6.4 cm CV PACS LA Area Sys (A2C) 16 cm2 CV PACS LA Area Sys (A4C) 21 cm2 CV PACS LA Volume (BP) 49 mL CV PACS RA Area 11.9 cm2 CV PACS RA 2D Volume 24 mL CV PACS AV Regurgitation PHT 525 ms CV PACS AR Max Velocity 4.7 m/s CV PACS AV Regurgitant Volume 88 mmHg CV PACS Aortic Sinus Valsalva 3.8 cm CV PACS Ascending Aorta 3.4 cm CV PACS IVSD 0.8 0.6 - 0.9 cm CV PACS LVIDD 4.1 3.8 - 5.2 cm CV PACS LVIDS 2.7 2.2 - 3.5 cm CV PACS LVOT Diameter 2.0 cm CV PACS LVPWD 0.7 0.6 - 0.9 cm CV PACS MV E' Tissue Velocity Lateral 6 cm/s CV PACS MV E' Tissue Velocity Septal 5 cm/s CV PACS LVOT Area 3.1 cm2 CV PACS MV Deceleration [place] 5.0 m/s2 CV PACS E Wave Deceleration Time 194 119 - 242 ms CV PACS MV PHT 57 ms CV PACS MV Peak A Chai 0.66 m/s CV PACS MV Peak E Chai 0.96 m/s CV PACS MV Area PHT 3.9 cm2 CV PACS RV Diastolic Basal Dimension 3.1 2.5 - 4.1 cm CV PACS RV S' 11 cm/s CV PACS TAPSE 20 mm CV PACS TR Peak Velocity 2.21 m/s CV PACS TR Peak Gradient 20 mmHg CV PACS E/E' Ratio Septal 19 CV PACS E/E' Ratio Averaged 18 CV PACS Relative Wall Thickness ratio 0.34 CV PACS FS 34 % CV PACS LV Mass 2D 89 g CV PACS Ascending Aorta Index 2.04 cm/m2 CV PACS RA 2D Volume Index 14 mL/m2 CV PACS LVIDD Index 2.46 cm/m2 CV PACS LVIDS Index 1.62 cm/m2 CV PACS E/A Ratio 1.5 CV PACS E/E' Ratio Lateral 16 CV PACS LA Volume Index (BP) 29 mL/m2 CV PACS LV Mass Index 2D 54 g/m2 CV PACS Anatomical Region Laterality Modality Ultrasound Narrative 09/12/2025 8:41 AM EST Left ventricle cavity size is normal. Wall thickness is normal. Systolic function is normal with an ejection fraction of 55-60%. There are no regional LV wall motion abnormalities. There is Grade II (moderate) diastolic dysfunction. Right ventricle cavity is normal. Right ventricular systolic function is normal. Mild aortic valve regurgitation. Mild mitral valve regurgitation. The right ventricular systolic pressure is normal and estimated to be 20 mmHg plus right atrial pressure. There are no significant changes compared to previous study from 04/03/2024. Left Ventricle Left ventricle cavity size is normal. Wall thickness is normal. Systolic function is normal with an ejection fraction of 55-60%. There are no regional LV wall motion abnormalities. There is Grade II (moderate) diastolic dysfunction. Right Ventricle Right ventricle cavity appears normal. Systolic function is normal. Left Atrium Left atrium cavity size is normal. Right Atrium Right atrium cavity is normal. IVC/SVC Inferior vena cava was not well visualized. Mitral Valve The leaflets are mildly thickened. There is mild regurgitation. There is no evidence of mitral valve stenosis. Tricuspid Valve The leaflets exhibit normal excursion. There is mild regurgitation. There is no evidence of tricuspid valve stenosis. The right ventricular systolic pressure is normal and estimated to be 20 mmHg plus right atrial pressure. Aortic Valve The aortic valve is trileaflet. There is mild regurgitation. There is no evidence of aortic valve stenosis. Pulmonic Valve Pulmonic valve structure is normal. There is trace pulmonic valve regurgitation. There is no evidence of pulmonic valve stenosis. Ascending Aorta The Sinus of Valsalva is 3.8 cm. The ascending aorta is normal. Pericardium There is no pericardial effusion. Study Details Overall the study quality was adequate. us Sarika Knott MD CV ECHO PROCEDURES Final Resul t * (ABNORMAL) Troponin I high sensitivity (09/11/2025 5:56 AM EST) Only the most recent of3 resultswithin the time period is included. [facility] High Sensitivity Troponin I 55(H) <=34 ng/L 09/11/2025 6:[address] [facility] Blood Venous blood specimen / Unknown Venipuncture / Unknown 09/11/2025 5:56 AM EST 09/11/2025 6:13 AM EST us Jaylyn THOMPSON LAB BLOOD ORDERABLES Final Re sult [facility] [address] [place] [address], * (ABNORMAL) CBC auto differential (09/11/2025 5:56 AM EST) Only the most recent of2 resultswithin the time period is included. [facility] WBC 8.1 4.8 - 10.8 K/mcL LAB HEMETOLOGY METHOD 09/11/2025 6:[address] [facility] RBC 4.20 3.80 - 4.80 M/mcL LAB HEMETOLOGY METHOD 09/11/2025 6:[address] [facility] Hemoglobin 12.2 11.5 - 16.0 g/dL LAB HEMETOLOGY METHOD 09/11/2025 6:[address] [facility] Hematocrit 39.2 35.0 - 47.0 % LAB HEMETOLOGY METHOD 09/11/2025 6:[address] [facility] MCV 92.7 79.0 - 98.0 FL LAB HEMETOLOGY METHOD 09/11/2025 6:[address] [facility] MCH 28.8 27.0 - 32.0 pcg LAB HEMETOLOGY METHOD 09/11/2025 6:[address] [facility] MCHC 31.1(L) 32.0 - 37.0 g/dL LAB HEMETOLOGY METHOD 09/11/2025 6:[address] [facility] RDW 13.6 11.0 - 15.0 % LAB HEMETOLOGY METHOD 09/11/2025 6:[address] [facility] Platelets 194 130 - 400 K/mcL LAB HEMETOLOGY METHOD 09/11/2025 6:[address] [facility] MPV 9.7 7.0 - 11.0 FL LAB HEMETOLOGY METHOD 09/11/2025 6:[address] [facility] NRBC 0.0 <1.0 % LAB HEMETOLOGY METHOD 09/11/2025 6:[address] [facility] NRBC Absolute 0.00 <0.10 K/mcL LAB HEMETOLOGY METHOD 09/11/2025 6:[address] [facility] Neutrophils Relative 82.0 % LAB HEMETOLOGY METHOD 09/11/2025 6:[address] [facility] Lymphocytes Relative 8.7 % LAB HEMETOLOGY METHOD 09/11/2025 6:[address] [facility] Monocytes Relative 6.3 % LAB HEMETOLOGY METHOD 09/11/2025 6:[address] [facility] Eosinophils Relative 2.1 % LAB HEMETOLOGY METHOD 09/11/2025 6:[address] [facility] Basophils Relative 0.5 % LAB HEMETOLOGY METHOD 09/11/2025 6:[address] [facility] Immature Granulocytes Relative 0.4 % LAB HEMETOLOGY METHOD 09/11/2025 6:[address] [facility] Neutrophils Absolute 6.63 1.50 - 7.00 K/mcL LAB HEMETOLOGY METHOD 09/11/2025 6:[address] [facility] Lymphocytes Absolute 0.70(L) 1.00 - 5.00 K/mcL LAB HEMETOLOGY METHOD 09/11/2025 6:30 AM EST [facility] Monocytes Absolute 0.51 0.20 - 1.00 K/mcL LAB HEMETOLOGY METHOD 09/11/2025 6:30 AM EST [facility] Eosinophils Absolute 0.17 0.00 - 0.50 K/mcL LAB HEMETOLOGY METHOD 09/11/2025 6:30 AM EST [facility] Basophils Absolute 0.04 0.00 - 0.20 K/mcL LAB HEMETOLOGY METHOD 09/11/2025 6:30 AM EST [facility] Immature Granulocytes Absolute 0.03 0.00 - 0.03 K/[facility] LAB HEMETOLOGY METHOD 09/11/2025 6:[address] [facility] Blood Venous blood specimen / Unknown Venipuncture / Unknown 09/11/2025 5:56 AM EST 09/11/2025 6:13 AM EST us Kentrell Krishnamurthy MD LAB BLOOD ORDERABLES Final Result [facility] [address] [place] [address], * (ABNORMAL) Basic metabolic panel (09/11/2025 5:56 AM EST) Only the most recent of2 resultswithin the time period is included. Sodium 143 133 - 145 mmol/L 09/11/2025 6:[address] [facility] Potassium 4.6 3.5 - 5.5 mmol/L 09/11/2025 6:[address] [facility] Chloride 106 96 - 110 mmol/L 09/11/2025 6:[address] [facility] CO2 30 21 - 32 mmol/L 09/11/2025 6:[address] [facility] Anion Gap 7 3 - 11 09/11/2025 6:[address] [facility] Glucose 77 70 - 100 mg/dL 09/11/2025 6:41 AM EST [facility] BUN 17 5 - 25 mg/dL 09/11/2025 6:[address] [facility] Creatinine 0.89 0.50 - 1.10 mg/dL 09/11/2025 6:[address] [facility] eGFR 65 >=60 mL/min/1. 73m2 09/11/2025 6:[address] [facility] Comment:Calculation based on the Chronic Kidney Disease Epidemiology Collaboration (CKD-EPI) equation refit without adjustment for race. BUN/Creatinine Ratio 19.1 09/11/2025 6:[address] [facility] Calcium 8.4(L) 8.5 - 10.5 mg/dL 09/11/2025 6:[address] [facility] Blood Venous blood specimen / Unknown Venipuncture / Unknown 09/11/2025 5:56 AM EST 09/11/2025 6:12 AM EST Kentrell Krishnamurthy MD LAB BLOOD ORDERABLES Final Result [facility] [address] [place] [address], * CT Angio Chest wo and/or w Contrast (09/10/2025 9:40 PM EST) Anatomical Region Laterality Modality Body Computed Tomogra phy 09/10/2025 10:2 7 PM EST Impressions 09/10/2025 10:27 PM EST Impression: 1. No pulmonary emboli. 2. No thoracic aortic aneurysm or dissection 3. 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 Adjacent atelectasis in the left upper and bilateral lower lobes. This document has been electronically signed by: Liudmila Lepe MD on 09/10/2025 22:27:23 Narrative 09/10/2025 10:27 PM EST INDICATION: Hypoxia, shortness of breath Exam: CTA Chest with IV contrast. Procedure: Contrast was administered. 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 Adjacent atelectasis in the left upper and bilateral lower lobes. No pulmonary emboli No thoracic aortic aneurysm or dissection. Atherosclerotic calcifications are seen at the aorta and coronary arteries. No hilar or mediastinal adenopathy. No pericardial fluid collection. No pneumothorax. No pleural fluid collection. No pneumonia Visualized liver and spleen do not demonstrate any acute process No thoracic spine compression fractures Procedure Note Liudmila Lepe MD - 09/10/2025 INDICATION: Hypoxia, shortness of breath Exam: CTA Chest with IV contrast. Procedure: Contrast was administered. Coronal and sagittal MIP reformats were performed Comparison: 02/02/2025 Clinical history: Hypoxia shortness of breath Findings: Large left diaphragmatic hernia containing stomach, large bowel and kimberly small portion of the pancreas. Adjacent atelectasis in the left upperand bilateral lower lobes. No pulmonary emboli No thoracic aortic aneurysm or dissection. Atherosclerotic calcifications are seen at the aorta and coronaryarteries. No hilar or mediastinal adenopathy. No pericardial fluid collection. No pneumothorax. No pleural fluid collection. No pneumonia Visualized liver and spleen do not demonstrate any acute process No thoracic spine compression fractures IMPRESSION: Impression: 1. No pulmonary emboli. 2. No thoracic aortic aneurysm or dissection 3. 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 Adjacent atelectasis in the leftupper and bilateral lower lobes. This document has been electronically signed by: Liudmila Lepe MD on 09/10/2025 22:27:23 Akhil Hernandez MD [facility] CT PROCEDURES Final Result * (ABNORMAL) D-dimer, quantitative (09/10/2025 8:56 PM EST) D-Dimer, Quant (D-DU) 310(H) <=230 ng/mL DDU LAB COAGULATION METHOD 09/10/2025 10:49 PM EST [facility] Blood Venous blood specimen / Unknown Venipuncture / Unknown 09/10/2025 8:56 PM EST 09/10/2025 9:51 PM EST Narrative [facility] - 09/10/2025 10:49 PM EST D-Dimer <230 ng/mL (D-Dimer units) is the threshold for exclusion of DVT/PE. D-Dimer may be elevated in: Critically ill, severely infected, trauma patients, DIC, acute CVA, acute KS, unstable angina, AF, old age, , and smoking. D-Dimer may be decreased with: Initiation of heparin therapy and oral anticoagulants. us Akhil Hernandez MD LAB BLOOD ORDERABLES Final Res ult [facility] [address] [place] [address], * CT Head wo Contrast (09/10/2025 7:48 PM EST) Anatomical Region Laterality Modality Head and Neck Computed Tomogra phy 09/10/2025 8:28 PM EST Impressions 09/10/2025 8:28 PM EST Impression: 1. No acute intracranial hemorrhage. 2. Cerebral volume loss. Cerebral white matter disease, likely ischemic microvascular in nature This document has been electronically signed by: Liudmila Lepe MD on 09/10/2025 20:28:53 Narrative 09/10/2025 8:28 PM EST INDICATION: agitation Exam: CT Brain without contrast Comparison: 04/02/2024, 02/02/2025 Clinical history: agitation Findings: No acute intracranial hemorrhage. Cerebral volume loss. No abnormal extra-axial fluid collections. No intracranial mass No midline shift. Bilateral cerebral white matter disease, likely ischemic microvascular in nature No skull fracture. Calcifications atthe right globe and lens are unchanged Procedure Note Liudmila Lepe MD - 09/10/2025 INDICATION: agitation Exam: CT Brain without contrast Comparison: 04/02/2024, 02/02/2025 Clinical history: agitation Findings: No acute intracranial hemorrhage. Cerebral volume loss. No abnormal extra-axial fluid collections. No intracranial mass No midline shift. Bilateral cerebral white matter disease, likely ischemic microvascularin nature No skull fracture. Calcifications atthe right globe and lens are unchanged IMPRESSION: Impression: 1. No acute intracranial hemorrhage. 2. Cerebral volume loss. Cerebral white matter disease, likely ischemic microvascular in nature This document has been electronically signed by: Liudmila Lepe MD on 09/10/2025 20:28:53 Result [facility] Akhil Hernandez MD IMG CT PROCEDURES Final Result * ECG 12 lead (09/10/2025 7:40 PM EST) Ventricular Rate ECG 80 BPM GEMUSE Atrial Rate 80 BPM GEMUSE P-R Interval 180 ms GEMUSE QRS Duration 76 ms GEMUSE Q-T Interval 378 ms GEMUSE QTc 435 ms GEMUSE P Wave [place] 82 degrees GEMUSE R [place] 19 degrees GEMUSE T [place] 56 degrees GEMUSE ECG Interpretation Sinus rhythm with Premature supraventricular complexes When compared with ECG of 02-FEB-2025 10:44, Questional change in anterior lead vector Confirmed by MARIZA CHANG ([id number]) on 09/11/2025 5:45:10 AM GEMUSE 09/10/2025 7:40 PM EST 09/11/2025 5:45 AM EST Akhil Hernandez MD ECG ORDERABLES Final Result GEMUSE * Blood Culture, Peripheral Draw #2 (09/10/2025 6:28 PM EST) Only the most recent of2 resultswithin the time period is included. Culture, Blood No growth at 5 days 09/15/2025 8:01 PM EST [facility] Blood Venous blood specimen / Unknown Venipuncture / Unknown 09/10/2025 6:28 PM EST 09/10/2025 6:58 PM EST Result [facility] Akhil Hernandez MD LAB MICROBIOLOGY - GENERAL ORD ERABLES Final Result Performing Organization Address [facility]/ZIP Co de Phone Number [facility] [address] [place] [address], * B-Type Natriuretic Peptide (BNP) (09/10/2025 6:28 PM EST) [facility] BNP 27 <=100 pcg/mL 09/10/2025 7:[address] [facility] Blood Venous blood specimen / Unknown Venipuncture / Unknown 09/10/2025 6:28 PM EST 09/10/2025 6:58 PM EST [facility] - 09/10/2025 7:23 PM EST Over the counter supplements containing high doses of biotin may interfere with this assay. If interference is suspected, patients shoud be retested after refraining from biotin supplements for 72 hours. Akhil Hernandez MD LAB BLOOD ORDERABLES Final Res ult Performing Organization Address [facility]/ZIP Co de Phone Number [facility] [address] [place] [address], * (ABNORMAL) Urinalysis with reflex microscopic and culture (09/10/2025 5:44 PM EST) [facility] Specific [place] Urine 1.018 1.003 - 1.030 LAB URINALYSIS - AUTOMATED METHOD 09/10/2025 6:[address] [facility] pH, Urine 5.0 5.0 - 8.0 pH LAB URINALYSIS - AUTOMATED METHOD 09/10/2025 6:[address] [facility] Leukocytes, Urine Moderate(A) Negative LAB URINALYSIS - AUTOMATED METHOD 09/10/2025 6:[address] [facility] Nitrite, Urine Negative Negative LAB URINALYSIS - AUTOMATED METHOD 09/10/2025 6:[address] [facility] Protein, Urine Negative <=Trace mg/dL LAB URINALYSIS - AUTOMATED METHOD 09/10/2025 6:[address] [facility] Glucose, Urine Negative Negative mg/dL LAB URINALYSIS - AUTOMATED METHOD 09/10/2025 6:[address] [facility] Ketones, Urine Negative Negative mg/dL LAB URINALYSIS - AUTOMATED METHOD 09/10/2025 6:[address] [facility] Urobilinogen , Urine 1.0 0.2 - 1.0 mg/dL LAB URINALYSIS - AUTOMATED METHOD 09/10/2025 6:[address] [facility] Bilirubin, Urine Negative Negative LAB URINALYSIS - AUTOMATED METHOD 09/10/2025 6:[address] [facility] Blood, Urine Negative Negative LAB URINALYSIS - AUTOMATED METHOD 09/10/2025 6:[address] [facility] RBC, Urine 0 0 - 4 /HPF 09/10/2025 6:[address] [facility] WBC, Urine 60(H) 0 - 4 /HPF 09/10/2025 6:[address] [facility] Squamous Epithelial, Urine >100(H) 0 - 60 /LPF 09/10/2025 6:[address] [facility] Bacteria, Urine Negative Negative /HPF 09/10/2025 6:[address] [facility] Hyaline Casts, Urine 0 0 - 3 /LPF 09/10/2025 6:[address] [facility] Urine Urine specimen obtained by clean catch procedure / Unknown Non-blood Collection / Unknown 09/10/2025 5:44 PM EST 09/10/2025 6:03 PM EST us Akhil Hernandez MD LAB URINE ORDERABLES Final Res ult [facility] [address] [place] [address], * Hearn urine culture tube (09/10/2025 5:44 PM EST) Extra Tube Hold for add-ons. 09/10/2025 8:01 PM EST [facility] Comment:Auto resulted. Urine Urine specimen obtained by clean catch procedure / Unknown Non-blood Collection / Unknown 09/10/2025 5:44 PM EST 09/10/2025 6:03 PM EST us Akhil Hernandez MD LAB URINE ORDERABLES Final Res ult [facility] [address] [place] [address], * (ABNORMAL) Culture urine (09/10/2025 5:44 PM EST) Pathologist [facility], [place] Culture, Urine 10,000-49,0 00 CFU/mL Proteus mirabilis(A ) BENJAMÍN 09/12/2025 10:47 AM EST [facility] Comment: Edited result: Previously reported as Proteus species on 09/11/2025 at 1056 EST. Urine Urine specimen obtained by clean catch procedure / Unknown Non-blood Collection / Unknown 09/10/2025 5:44 PM EST 09/10/2025 6:39 PM EST Narrative Organism Antibiotic Method Susceptibility Proteus mirabilis Amoxicillin/Clavulanate BENJAMÍN <=2 ug/ml: Susceptible Proteus mirabilis Ampicillin/Sulbactam BENJAMÍN <=2 ug/ml: Susceptible Proteus mirabilis Piperacillin/Tazobactam BENJAMÍN <=4 ug/ml: Susceptible Proteus mirabilis Cefazolin (Urine) BENJAMÍN 4 ug/ml: Susceptible Proteus mirabilis Cefoxitin BENJAMÍN <=4 ug/ml: Susceptible Proteus mirabilis Ceftazidime BENJAMÍN <=0.5 ug/ml: Susceptible Proteus mirabilis Ceftriaxone BENJAMÍN <=0.25 ug/ml: Susceptible Proteus mirabilis Cefepime BENJAMÍN <=0.12 ug/ml: Susceptible Proteus mirabilis Meropenem BENJAMÍN <=0.25 ug/ml: Susceptible Proteus mirabilis Amikacin BENJAMÍN 4 ug/ml: Susceptible Proteus mirabilis Gentamicin BENJAMÍN <=1 ug/ml: Susceptible Proteus mirabilis Ciprofloxacin BENJAMÍN <=0.06 ug/ml: Susceptible Proteus mirabilis Levofloxacin BENJAMÍN <=0.12 ug/ml: Susceptible Proteus mirabilis Nitrofurantoin BENJAMÍN 128 ug/ml: Resistant Proteus mirabilis Trimethoprim/Sulfamethoxazole BENJAMÍN <=20 ug/ml: Susceptible us Akhil Hernandez MD LAB MICROBIOLOGY - GENERAL ORD ERABLES Final Result [facility] [address] [place] [address], [place] [phone] * XR Chest 1 View (09/10/2025 5:04 PM EST) Anatomical Region Laterality Modality Body Radiographic Julianna ging 09/11/2025 7:31 AM EST Impressions 09/11/2025 7:34 AM EST Large amount of abdominal content projects in the mid and lower chest on the left. The integrity of the diaphragm is uncertain. I suspect stomach and colon are present within a large hernia or diaphragmatic defect. -------- FINAL REPORT -------- Dictated By: David Birmingham Dictated Date: 09/11/2025 07:31 ET Assigned Physician: David Birmingham Reviewed and Electronically Signed By: David Birmingham Signed Date: 09/11/2025 07:34 ET Workstation ID: [id number] Transcribed By: Self Edit Transcribed Date: 09/11/2025 07:31 ET Narrative 09/11/2025 7:34 AM EST EXAMINATION: CHEST CLINICAL INFORMATION: Dyspnea COMPARISON: Frontal view 02/02/25 TECHNIQUE: Portable frontal sitting view of the chest FINDINGS: There is kyphosis and rotation to the left. There is calcification of the aorta. The cardiac size is indeterminate but I suspect at least moderate globular enlargement. The central vessels on the right are prominent and indistinct. No consolidation of the right lung. The left side of the mediastinum, left hilum and central vessels on the left are obscured. There is opacity in the lower 4/5 of the left hemithorax with hollow viscus. No pneumothorax. Limited bone detail Procedure Note David Birmingham MD - 09/11/2025 EXAMINATION: CHEST CLINICAL INFORMATION: Dyspnea COMPARISON: Frontal view 02/02/25 TECHNIQUE: Portable frontal sitting view of the chest FINDINGS: There is kyphosis and rotation to the left. There is calcification of the aorta. The cardiac size is indeterminate butI suspect at least moderate globular enlargement. The central vessels onthe right are prominent and indistinct. No consolidation of the rightlung. The left side of the mediastinum, left hilum and central vessels on theleft are obscured. There is opacity in the lower 4/5 of the lefthemithorax with hollow viscus. No pneumothorax. Limited bone detail IMPRESSION: Large amount of abdominal content projects in the mid and lower chest onthe left. The integrity of the diaphragm is uncertain. I suspect stomachand colon are present within a large hernia or diaphragmatic defect. -------- FINAL REPORT -------- Dictated By: David Birmingham Dictated Date: 09/11/2025 07:31 ET Assigned Physician: David Birmingham Reviewed and Electronically Signed By: David Birmingham Signed Date: 09/11/2025 07:34 ET Workstation ID: [id number] Transcribed By: Self Edit Transcribed Date: 09/11/2025 07:31 ET us Kentrell Krishnamurthy MD IMG XR PROCEDURES Final Res ult * Respiratory virus panel molecular study (09/10/2025 5:02 PM EST) Pathologist [facility] [place] Adenovirus Detection by PCR Not Detected Not Detected LAB MICROBIOLOGY METHOD 09/10/2025 6:[address] [facility] Influenza A PCR Not Detected Not Detected LAB MICROBIOLOGY METHOD 09/10/2025 6:[address] [facility] Influenza B PCR Not Detected Not Detected LAB MICROBIOLOGY METHOD 09/10/2025 6:[address] [facility] Coronavirus 229E Not Detected Not Detected LAB MICROBIOLOGY METHOD 09/10/2025 6:[address] [facility] Coronavirus HKU1 Not Detected Not Detected LAB MICROBIOLOGY METHOD 09/10/2025 6:[address] [facility] Coronavirus OC43 Not Detected Not Detected LAB MICROBIOLOGY METHOD 09/10/2025 6:[address] [facility] Coronavirus NL63 Not Detected Not Detected LAB MICROBIOLOGY METHOD 09/10/2025 6:[address] [facility] Parainfluenza Virus 1 Not Detected Not Detected LAB MICROBIOLOGY METHOD 09/10/2025 6:[address] [facility] Parainfluenza Virus 2 Not Detected Not Detected LAB MICROBIOLOGY METHOD 09/10/2025 6:[address] [facility] Parainfluenza Virus 3 Not Detected Not Detected LAB MICROBIOLOGY METHOD 09/10/2025 6:[address] [facility] Parainfluenza Virus 4 Not Detected Not Detected LAB MICROBIOLOGY METHOD 09/10/2025 6:[address] [facility] RSV PCR Not Detected Not Detected LAB MICROBIOLOGY METHOD 09/10/2025 6:[address] [facility] Human Metapneumovirus A and B Not Detected Not Detected LAB MICROBIOLOGY METHOD 09/10/2025 6:[address] [facility] Rhinovirus/Entero virus Not Detected Not Detected LAB MICROBIOLOGY METHOD 09/10/2025 6:[address] [facility] Bordetella pertussis Not Detected Not Detected LAB MICROBIOLOGY METHOD 09/10/2025 6:[address] [facility] Bordetella parapertussis Not Detected Not Detected LAB MICROBIOLOGY METHOD 09/10/2025 6:[address] [facility] Mycoplasma pneumo by PCR Not Detected Not Detected LAB MICROBIOLOGY METHOD 09/10/2025 6:[address] [facility] Chlamydia pneumoniae Not Detected Not Detected LAB MICROBIOLOGY METHOD 09/10/2025 6:[address] [facility] SARS COV-2 Not Detected Not Detected LAB MICROBIOLOGY METHOD 09/10/2025 6:11 PM EST [facility] Swab Both anterior nares / Unknown Non-blood Collection / Unknown 09/10/2025 5:02 PM EST 09/10/2025 5:11 PM EST Narrative [facility] - 09/10/2025 6:11 PM EST Testing was performed using the [employer] Respiratory Pathogen PCR Assay. All results must be correlated with the clinical findings. Results should not be used as the sole basis for diagnosis. False Negative results may occur from the presence of sequence variants in the region targeted by the assay or the presence of inhibitors. Results may be affected by concurrent antiviral/antimicrobial therapy or levels of organisms that are below the limit of detection. Akhil Hernandez MD LAB MICROBIOLOGY - GENERAL ORD ERABLES Final Result Performing Organization Address City/[facility]/ZIP Co de Phone Number [facility] [address] [place] [address], * (ABNORMAL) Magnesium (09/10/2025 4:59 PM EST) Magnesium 1.8(L) 1.9 - 2.6 mg/dL 09/10/2025 5:44 PM EST [facility] Blood Venous blood specimen / Unknown Venipuncture / Unknown 09/10/2025 4:59 PM EST 09/10/2025 5:09 PM EST Akhil Hernandez MD LAB BLOOD ORDERABLES Final Res ult [facility] [address] [place] [address], [place] [phone] * Lactate (09/10/2025 4:59 PM EST) Lactate 1.7 0.4 - 2.0 mmol/L 09/10/2025 5:42 PM EST [facility] Blood Venous blood specimen / Unknown Venipuncture / Unknown 09/10/2025 4:59 PM EST 09/10/2025 5:08 PM EST Akhil Hernandez MD LAB BLOOD ORDERABLES Final Res ult Performing Organization Address City/[facility]/ZIP Co de Phone Number [facility] [address] [place] [address], [place] [phone] * (ABNORMAL) Venous blood gas (09/10/2025 4:59 PM EST) pH, Sae 7.40 7.32 - 7.42 pH 09/10/2025 5:10 PM EST [facility] pCO2, Sae 43 41 - 51 mmHg 09/10/2025 5:10 PM EST [facility] pO2, Sae 64(H) 25 - 40 mmHg 09/10/2025 5:10 PM EST [facility] HCO3, Venous 26.0 22.0 - 26.0 mmol/L 09/10/2025 5:10 PM EST [facility] O2 Sat, Sae 96.3 % 09/10/2025 5:10 PM EST [facility] Base Excess, Sae 1.5 -2.0 - 2.0 mmol/L 09/10/2025 5:10 PM EST [facility] Blood Venous blood specimen / Unknown Venipuncture / Unknown 09/10/2025 4:59 PM EST 09/10/2025 5:08 PM EST us Akhil Hernandez MD LAB BLOOD ORDERABLES Final Res ult [facility] [address] [place] [address], [place] [phone] * Ammonia (09/10/2025 4:59 PM EST) Ammonia 26 11 - 35 mcmol/L 09/10/2025 5:39 PM EST [facility] Blood Venous blood specimen / Unknown Venipuncture / Unknown 09/10/2025 4:59 PM EST 09/10/2025 5:08 PM EST us Akhil Hernandez MD LAB BLOOD ORDERABLES Final Res ult [facility] [address] [place] [address], [place] [phone] from Last 3 Months Insurance [facility] MEDICARE [facility] MED[facility]ID Advance Directives Documents on File Type Date Recorded Patient Research Quality Assurance Analyst Expl anation Advance Directives and Living Will 02/02/2025 12:56 PM Brooke Story Health Care Proxy Health Care Decision (hx) 04/02/2024 HE ALTH CARE PROXY * Full Code - Default (Latest Code Status on File) Date Activated Date Inactivated Comments 09/10/2025 11:58 PM 09/12/2025 3:49 PM This is o rder is used when code status has not been discussed with the patient, or code status is otherwise unknown/unconfirmed To update the patient's code status, place a code status order. Do not modify or discontinue any currently active code status orders. * Full Code - Default Date Activated Date Inactivated Comments 02/02/2025 3:33 PM 02/08/2025 5:12 PM This is order is used when code status has not been discussed with the patient, or code status is otherwise unknown/unconfirmed To update the patient's code status, place a code status order. Do not modify or discontinue any currently active code status orders. Healthcare Agents on File Name Relationship Healthcare Agent [facility] Communication Brooke Story Relative Health Care Agent Care Teams Tourist Agent Relationship Specialty Start Date End Date Mitali Blanton MD [address] [place] [phone] PCP - General 01/26/15
== END 2025-10-01 12:19 | disposition home or self-care (01) ==
LOC: HO.HMCC 10:51
PROVIDERS: PCP Internal Medicine; Visit Provider Internal Medicine
DX: F41.9 Anxiety disorder, unspecified (principal); F32.9 Major depressive disorder, single episode, unspecified; E78.5 Hyperlipidemia, unspecified; K44.9 Diaphragmatic hernia without obstruction or gangrene

== ENCOUNTER → 2025-10-01 10:50 | Outpatient (BNVA) | payer MEDICARE, SELFPAY | PROVIDERS: PCP Internal Medicine; Visit Provider Internal Medicine | DX: Z09 Encounter for follow-up examination after completed treatment for conditions other than malignant neoplasm (principal); Z87.01 Personal history of pneumonia (recurrent); K44.9 Diaphragmatic hernia without obstruction or gangrene; E78.5 Hyperlipidemia, unspecified; F41.9 Anxiety disorder, unspecified; F32.9 Major depressive disorder, single episode, unspecified | CPT/HCPCS: 99212 ==